=== PATIENT | male | born 1955 | race Caucasian/White ===

== ENCOUNTER 2018-08-11 21:06 | Inpatient (IN) | payer BC, SELFPAY ==
[2018-08-11 21:06] VITALS: BP 105/88; PULSE 106; RESP 18; O2SAT 97
[2018-08-11 21:09] VITALS: BP 105/68; PULSE 110; TEMP 36.8; O2SAT 100; BMI 26.7
--- NOTE | 2018-08-11 21:15 | EKG12_ITS ---
Test Reason : GI Blood Pressure : / mmHG Vent. Rate : 103 BPM Atrial Rate : 103 BPM P-R Int : 174 ms QRS Dur : 096 ms QT Int : 362 ms P-R-T Axes : 051 027 028 degrees QTc Int : 474 ms Sinus tachycardia Incomplete right bundle branch block Borderline ECG Confirmed by AIDA WILKES ([id number]), graphics editor ASHLEY KELLY ([id number]) on 08/15/2018 4:51:52 PM Referred By: CAMILLE Confirmed By:AIDA WILKES
[2018-08-11] MEDS: 0.9% Normal Saline 1,000 ML 999 ML IV (21:16)
[2018-08-11 21:35] LABS: Absolute Lymphocyte Count 2.34 X10^3/ul (0.83-4.51); Absolute Neutrophil Count 10.6 X10^3/uL (2.0-7.7); Basophil# 0.09 X10^3/uL; Basophil% 0.6 % (0-1); Eosinophil# 0.13 X10^3/uL; Eosinophils% 0.9 % (0-5); Hematocrit 24.7 % (40-54); Lymphocyte # 2.34 X10^3/ul (4.0); Lymphocyte % 16.9 % (19-41); Mean Corp Hgb Conc 32.4 g/gl (32-36); Mean Corpuscular Hgb 31.7 pg (27.0-32.0); Mean Platelet Vol. 11.2 fl (6.2-12.0); Monocyte# 0.72 X10^3/uL; Monocyte% 5.2 % (0-10); Neutrophil # 10.56 X10^3/uL (2.7-7.7); Neutrophil % 76.3 % (47-70); Platelet Count 244 K/mm3 (150-450); RBC Distribution Width CV 14.4 % (11.6-14.6); RBC Distribution Width SD 51.3 fl (35.1-43.9); Red Blood Count 2.52 M/mm3 (4.6-6.2); White Blood Count 13.9 K/mm3 (4.4-11.0)
[2018-08-11 21:36] LABS: POSITIVE COUNT NO; POSITIVE DIFFERENTIAL NO; POSITIVE MORPHOLOGY NO
[2018-08-11 21:39] LABS: International Normalized Ratio 1.5
[2018-08-11 21:46] LABS: Anion Gap 10 (5-15); BUN 55 mg/dL (7-18); BUN/Creat Ratio 41.4 RATIO (10-20); Calcium,Total 8.2 mg/dL (8.5-10.1); Chloride 109 mmol/L (98-107); Creatinine, Serum 1.33 mg/dL (0.70-1.30); EST Glomerular Filtration Rate 57 mL/min (>60); Est Glom Filt Rate - Afr Amer 69 mL/min (>60); Estimated Creatinine Clearance 56.11 ml/min; Glucose 166 mg/dL (74-106); Potassium 3.6 mmol/L (3.5-5.1); Sodium Level 142 mmol/L (136-145)
--- NOTE | 2018-08-11 22:33 | HP.PCM_ITS ---
Problem List (1) GI bleed Status: Acute Qualifiers: GI bleed type/associated pathology: unspecified gastrointestinal hemorrhage type Qualified Code(s): K92.2 - Gastrointestinal hemorrhage, unspecified (2) Acute blood loss anemia Status: Acute (3) PAD (peripheral artery disease) Status: Chronic (4) Alcohol abuse Status: Chronic (5) Tobacco dependence syndrome Status: Chronic (6) PVD (peripheral vascular disease) Status: Chronic (7) History of peptic ulcer Status: Chronic (8) GERD (gastroesophageal reflux disease) Status: Chronic Qualifiers: Esophagitis presence: esophagitis presence not specified Qualified Code(s): K21.9 - Gastro-esophageal reflux disease without esophagitis (9) Benign essential hypertension Status: Chronic (10) COLD (chronic obstructive lung disease) Status: Chronic Qualifiers: COPD type: unspecified COPD Qualified Code(s): J44.9 - Chronic obstructive pulmonary disease, unspecified History of Present Illness Date of Admission: 08/11/18 Chief Complaint: Hematemesis, melanotic stools The patient is a 62 y/o M w/ PMHx: Hx Throat CA s/p cyrogenic therapy/laser surgery, EtOH Abuse, Chronic COPD, Tobacco use, Hx Bleeding Gastric Ulcer 03/2018 following w/ Dr. 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 He also notes onset since of lightheadedness, dizziness and increased fatigue. Work-up in the ED included T 98.3, heart rate 110, BP 105/68, respiratory rate 18, 100% on room air, CBC with W BC 13.9, h emoglobin 8 with last noted in system 12 but do not have access to recent [facility] records, platelet 244 with left shift, coags with PT 18, INR 1.5, PTT 30, BMP with chloride 109, BUN/creatinine 55/1.33, glucose 166, troponin less than 0.015, EKG with sinus tachycardia with no acute evidence of ischemia, stool guaiac positive, type and screen performed in the ED. Surgery, Dr. Kumar consulted per ED, familiar with patient and case discussed, amenable to [facility] admission, planned AM endoscopy. Hospitalist also discussed case with Dr. Kumar upon patient admission given especially patient need for ongoing anticoagulation. Patient noted having taken his xarelto regimen on day of presentation, next due 08/12/18 ~ 8 am. Past Medical History Past Medical History (Chronic Problems): Chronic Problems PAD (peripheral artery disease) (Chronic) Alcohol abuse (Chronic) Tobacco dependence syndrome (Chronic) PVD (peripheral vascular disease) (Chronic) History of peptic ulcer (Chronic) GERD (gastroesophageal reflux disease) (Chronic) Degeneration, intervertebral disc (Chronic) History of DVT of lower extremity (Chronic) Benign essential hypertension (Chronic) On anticoagulant therapy (Chronic) Chronic serous otitis media of both ears (Chronic) Eustachian tube dysfunction (Chronic) COLD (chronic obstructive lung disease) (Chronic) Allergies lisinopril Adverse Reaction (Verified 08/11/18 21:12) Other Home Medications: Ambulatory Orders Medication Instructions Recorded Amlodipine [Norvasc] 5 mg PO DAILY 05/04/16 Aspirin [Aspirin, Baby] 81 mg PO DAILY@0800 05/04/16 Esomeprazole Mag Trihydrate 40 mg PO BID 05/04/16 [Nexium] Ferrous Sulfate 325 mg PO DAILY@0800 05/04/17 Rivaroxaban [Xarelto] 20 mg PO DAILY 05/04/17 Ascorbic Acid [Vitamin C] 1,000 mg PO DAILY 08/11/18 Cyanocobalamin (Vitamin B-12) 500 mcg PO DAILY 08/11/18 [Vitamin B-12] Magnesium Oxide [Mag-Ox 400] 400 mg PO DAILY 08/11/18 Potassium Chloride [K-Dur] 10 meq PO DAILY 08/11/18 Surgical History: - - Bilateral lower extremity bypass surgery x3, lumbar back surgery, right elbow surgery x2, tonsillectomy, throat cancer laser surgery as well as cryogenic therapy. Psychiatric History: No pertinent psych hx Smoking Status: Current every day smoker Review of Systems Constitutional: Reports: Anorexia, Malaise, Weakness, Fatigue. Denies: Chills, Fever, Weight Change HEENT: Denies: Head Aches, Sinus Congestion, Sinus Drainage Cardiovascular: Denies: Chest Pain, Palpitations Respiratory: Denies: Cough, Shortness of breath at rest, Sputum production Gastrointestinal: Reports: Abdominal Pain, Hematemesis, Nausea, Melena, Vomiting Genitourinary: Denies: Dysuria Musculoskeletal: Reports: Joint Pain. Denies: Joint Tenderness Skin: Denies: Rash, Wounds Neurological: Denies: Numbness, Tingling, Focal weakness Psychiatric: Denies: Anxiety, Depression, Homicidal Ideations, Suicidal Ideations Hematologic/ Lymphatic: Reports: Anemia, Easy Bruising, Easy Bleeding VTE Information - Inpt Only VTE Present on Admission: No VTE Mechan Device Prophylaxis: SCD's VTE Pharm Prophylaxis ordered?: Yes Patient Problems: Active and Suspected Problems GI bleed (Acute) Acute blood loss anemia (Acute) Subjective: Seated upright in ED bed, fatigued appearing, notes no recent emesis since ED presentation. Objective: Physical Examination: General: awake, alert, oriented x 3 and cooperative, seated upright in the ED bed in no apparent distress aside noting back discomfort from the bed. Skin: normal color, turgor, no icterus, cyanosis. HEENT: AT/NC, EOMI, PERRLA, mildly dry MM, no carotid bruits or JVD noted. Lungs: CTA bilaterally, moderate effort, moderate decrease BL bases, no rales, ronchi or wheezing. Heart: Mildly tachycardic with regular rhythm; no gallop, rub audible. Abdomen: soft, NTTP, ND, hyperactive BS, + HM. Extremities: no cyanosis, clubbing, or edema, notable BL LE scars s/p bypass surgeries. Neurological: patient awake, alert, oriented x 3; cognitive function intact; pupils equally reactive to light and accomodation; cranial nerves II-XII grossly normal, moving all 4 extremities, no focal deficits, strength severely globally decreased secondary to acute presentation. Psychiatric: affect appears fatigued, no acute evidence of depressive or anxiety feelings. - Physical Exam Vital Signs Temp Pulse Resp BP Pulse Ox 98.3 F 110 H 18 105/68 100 08/11/18 21:09 08/11/18 21:09 08/11/18 21:06 08/11/18 21:09 08/11/18 21:09 Oxygen Delivery Method Room Air Weight: 180 lb 15.992 oz Body Mass Index (BMI) 26.7 Microbiology Past 72 Hours 08/11/18 21:15 Stool Occult Blood (ROMAN) - Final Stool Occult Blood Positive Laboratory Tests Past 24 Hrs 08/11/18 08/11/18 08/11/18 21:15 21:15 21:15 WBC 13.9 H RBC 2.52 L Hgb 8.0 L Hct 24.7 L MCV 98.0 H MCH 31.7 MCHC 32.4 RDW 14.4 RDW Differential 51.3 H Plt Count 244 MPV 11.2 Immature Gran % (Auto) 0.100 Neut % (Auto) 76.3 H Lymph % (Auto) 16.9 L [place] % (Auto) 5.2 Eos % (Auto) 0.9 Baso % (Auto) 0.6 Absolute Neuts (auto) 10.6 H Absolute Lymphs (auto) 2.34 Total Counted Not Reportable PT 18.0 H INR 1.5 APTT 30.0 Sodium 142 Potassium 3.6 Chloride 109 H Carbon Dioxide 23.0 Anion Gap 10 BUN 55 H Creatinine 1.33 H Estim Creat Clear Calc 56.11 Est GFR (MDRD) Af Amer 69 Est GFR (MDRD) Non-Af 57 L BUN/Creatinine Ratio 41.4 H Glucose 166 H Calcium 8.2 L Troponin I < 0.015 Blood Type Antibody Screen 08/11/18 21:15 WBC RBC Hgb Hct MCV MCH MCHC RDW RDW Differential Plt Count MPV Immature Gran % (Auto) Neut % (Auto) Lymph % (Auto) [place] % (Auto) Eos % (Auto) Baso % (Auto) Absolute Neuts (auto) Absolute Lymphs (auto) Total Counted PT INR APTT Sodium Potassium Chloride Carbon Dioxide Anion Gap BUN Creatinine Estim Creat Clear Calc Est GFR (MDRD) Af Amer Est GFR (MDRD) Non-Af BUN/Creatinine Ratio Glucose Calcium Troponin I Blood Type A NEGATIVE Antibody Screen NEGATIVE Assessment/Plan All Active Problems GI bleed (Acute) Acute blood loss anemia (Acute) The patient is a 62 y/o M w/ PMHx: Hx Throat CA s/p cyrogenic therapy/laser surgery, EtOH Abuse, Chronic COPD, Tobacco use, Hx Bleeding Gastric Ulcer 03/2018 following w/ Dr. 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 (1) Acute GI Bleed w/ resultant Acute Blood Loss Anemia w/ Hx Gastric Ulcer, GERD, Fe deficiency anemia concurrently: Admission Hgb 8, will admit to PCU, maintain on IVFs, holding further xarelto with planned transition per discussion with Dr. Kumar to heparin drip 08/12/18 ~ 8 am when next dose would be due secondary to severity of patient need for continuation, will obtain serial H+H q 4 hours, obtain T+S per ED already, maintain on IV PPI. (2) PAD: s/p BL LE bypass x 3, maintained on xarelto-->heparin drip as noted, holding asa, not on statin therapy, maintain on HTN regimen. (3) Hx Serial DVTs: Complicates presentation, #1, as noted discussed precarious situation with Dr. Kumar, patient refuses to hold anticoagulation as notes immediately clots and notable PAD history as noted, will transition to heparin drip 08/12/18 ~ 8 am until endoscopy performed. (4) Tobacco Abuse: Encouraged cessation, inpatient consultation per RT. (5) Chronic COPD: PRN albuterol, HOB, IS parameters. Declined trial of duonebs, encouraged tobacco cessation. (6) EtOH Abuse: Patient notes routine consumption of 3-5, 12 ounce beers per day. Will maintain on CIWA protocol, MVI, thiamine and folic acid. Encouraged patient consumption to decrease to 2 or < per day. Mag and phos pending. (7) Hx Throat CA: s/p cyrogenic therapy and initial laser surgery. (8) DVT Prophylaxis: SCDs, will transition to heparin drip 08/12/18 ~ 8 am until endoscopy performed. Code Visit Inpatient E&M: 24021 Init Hosp L3
--- NOTE | 2018-08-11 22:41 | ED.DCSUM_ITS ---
- ER Visit Summary Date of Service: 08/11/18 Chief Complaint: Vomiting blood and bloody stools History of Present Illness: The patient is a 62 M who states that he is vomiting blood and is having bloody stools. Started yesterday. He has had multiple bloody bowel movements. He states that they are now dark. He did have bright red blood and vomiting but now this is also dark. He is not nauseous currently. He does have a history of a bleeding ulcer and has seen Dr. Kumar in the past. He is on Xarelto for history of DVT and peripheral vascular disease. Physical Examination: Vital signs reviewed. HEENT exam unremarkable. Heart is tachycardic and regular rhythm without murmurs. Lungs are clear to auscultation. Abdomen is soft and nontender. Extremities reveal no edema. Skin exam normal. Neurologic exam normal. Test Results: EKG is sinus rhythm with rate of 103. Hemoglobin is 8. The last documented hemoglobin here is 12. White blood cell count 13.9. BUN 55 creatinine 1.33. Troponin normal. Emergency Department Course and Treatment: The patient was given saline. He has no need for blood transfusion at this time. He is hemodynamically stable except for slight tachycardia. I discussed with Dr. Humphrey and he will see the patient tomorrow for likely endoscopy. Patient will be admitted to PCU with repeat hemoglobins throughout the night. Treatment Plan: [] Disposition: Admit Impression: GI bleed on anticoagulation This note was generated with [employer] dictation software. It may contain incorrect words, spelling, and punctuation that were not noted in review of the chart prior to signing ED Disposition - Plan for ED Patient: Referrals: Santhosh Dorado III, MD [Primary Care Provider] -
[2018-08-11 23:15] VITALS: BP 128/77; BP 134/80; PULSE 99; RESP 17; TEMP 36.7; O2SAT 96
[2018-08-11 23:40] VITALS: PULSE 94
[2018-08-11 23:56] LABS: Magnesium 1.8 mg/dL (1.6-2.6); Phosphorus 3.3 mg/dL (2.5-4.9)
[2018-08-12] VITALS (22 sets, daily range): BP systolic 93–130; BP diastolic 61–72; PULSE 69–95; RESP 12–16; TEMP 36.4–36.9; O2SAT 92–100; BMI 26.6; BMI 26.7
--- NOTE | 2018-08-12 | GASB_PTH ---
PATIENT: ALFREDA RAMIREZ Jr. LOC: [facility] U#:[id number] AGE/SX: 62/M ROOM: [facility] RE08/11/[address]: Dr. Juan Diego Cote DO : 1955 BED: 1 DIS: 08/12/2018 SPEC #: [id number] RECD: 08/12/18 13:59 STATUS: MAGY REQ #: [id number] BRENT: 08/12/18 00:[address]: Kumar Kumar DEPT: SURGICAL PATHOLOGY RECD BY: Jose Cavanaugh ENTERED: 08/12/18 13:59 SP TYPE: Gastric Bx OTHR DR: MD Dr. Santhosh Reyes III, MD Dr. Mark Tereletsky, DO Dr. Richard Guttman, MD Tissues: Gastric mucous membrane Procedures: Surgery Specimen Level IV Comments: @ Ordering doctor for SUIV edited from to @ by YUE at 08/12/18 1421 @ Submitting doctor edited from to DR.RGUTTM Ayon by ROCKOD at 08/12/18 142 HEADER OPER[place] [place] DIAGNOSIS: GI bleed TISSUE SUBMITTED: Antral biopsy for histo and H. pylori MICROSCOPIC DIAGNOSIS Gastric antrum, biopsy: Mild chronic gastritis. AM:christina 08/15/18 COMMENT The results of immunohistochemistry for Helicobacter pylori will be reported separately ([id number]). MICROSCOPIC DESCRIPTION Slides are reviewed. GROSS DESCRIPTION Received in fixative is one container labeled with the patient's name and designated antral biopsy. The specimen consists of one irregular fragment of light mulligan soft tissue that measures 0.4 x 0.1 x 0.1 cm. The specimen is totally submitted in one cassette. / SJ:christina 08/12/18 TC:3 CPT: 73842
--- NOTE | 2018-08-12 00:04 | NURSING ---
Pt unsure when pneumonia shot was.
[2018-08-12 00:22] LABS: Hematocrit 25.7 % (40-54); Hemoglobin 8.3 g/dl (13.0-16.5)
[2018-08-12] MEDS: 0.9% Normal Saline 1,000 ML 100 ML IV (00:44)
[2018-08-12] MEDS: 0.9% NaCl Peripheral Flush Adult/Peds IV ×2 (00:48→04:16)
[2018-08-12 03:30] LABS: Hematocrit 23.6 % (40-54); Hemoglobin 7.5 g/dl (13.0-16.5)
--- NOTE | 2018-08-12 05:24 | NURSING ---
Stool observed at this time and is liquid, dark brown.
--- NOTE | 2018-08-12 06:01 | CON.PCM_ITS ---
Reason for Consult Date of Consultation: 08/12/18 Reason for Consultation: Gi bleed History of Present Illness: The patient is a 62 year old M who presents with a three-day history of maroon to bloody stools with hematemesis yesterday. The patient is a usual state of health when he noted dark and or bloody stools for the past 3 days. Yesterday, the patient noted overall was feeling worse and had an episode of hematemesis. He presented to the emergency department with these complaints. CBC was obtained which demonstrated a hemoglobin of 8.0. The patient had a hemoglobin in the [facility] system in January 2018 that demonstrated a hemoglobin of 12.6. I performed upper and lower endoscopy on March 29, 2018at that time for a diagnosis of an explain diarrhea. colonoscopy demonstrated no specific abnormalities. The terminal ileum was identified and was also unrem arkable.upper endoscopy demonstrated relatively diffuse gastritis with was felt to be a superficial oozing gastric ulcer up in the gastric fundus. This was injected with epinephrine and fulgurated with argon plasma motor polarizer.pathology from that endoscopy series returned as normal appearing small bowel biopsy, normal gastric antrum, slight chronically inflamed gastric close at the GE junction, normal terminal ileum and normal colon. The patient underwent repeat upper endoscopy on April 12, 2018. There was still felt to be some oozing in the area. This was again treated with monopolar coagulopathy and a clip applied to the site.biopsy at that time returned as erosions and changes consistent with reactive gastropathy. The patient has a history of alcohol abuse and tobacco use. He has a history of peripheral vascular disease hypertension lower extremity arterial emboli for which she is on chronic anticoagulation-Xarelto and history of COPD.he has undergone lower extremity revascularizationand balloon angioplasty of lower extremity arterial stenoses on both the right and left legs. Past Medical History Past Medical History (Chronic Problems): Chronic Problems PAD (peripheral artery disease) (Chronic) Alcohol abuse (Chronic) Tobacco dependence syndrome (Chronic) PVD (peripheral vascular disease) (Chronic) History of peptic ulcer (Chronic) GERD (gastroesophageal reflux disease) (Chronic) Degeneration, intervertebral disc (Chronic) History of DVT of lower extremity (Chronic) Benign essential hypertension (Chronic) On anticoagulant therapy (Chronic) Chronic serous otitis media of both ears (Chronic) Eustachian tube dysfunction (Chronic) COLD (chronic obstructive lung disease) (Chronic) Allergies lisinopril Adverse Reaction (Verified 08/11/18 21:12) Other Home Medications: Ambulatory Orders Medication Instructions Recorded Amlodipine [Norvasc] 5 mg PO DAILY 05/04/16 Aspirin [Aspirin, Baby] 81 mg PO DAILY@0800 05/04/16 Esomeprazole Mag Trihydrate 40 mg PO BID 05/04/16 [Nexium] Ferrous Sulfate 325 mg PO DAILY@0800 05/04/17 Rivaroxaban [Xarelto] 20 mg PO DAILY 05/04/17 Ascorbic Acid [Vitamin C] 1,000 mg PO DAILY 08/11/18 Cyanocobalamin (Vitamin B-12) 500 mcg PO DAILY 08/11/18 [Vitamin B-12] Magnesium Oxide [Mag-Ox 400] 400 mg PO DAILY 08/11/18 Potassium Chloride [K-Dur] 10 meq PO DAILY 08/11/18 Surgical History: - - Bilateral lower extremity bypass surgery x3, lumbar back surgery, right elbow surgery x2, tonsillectomy, throat cancer laser surgery as well as cryogenic therapy. Psychiatric History: No pertinent psych hx Smoking Status: Current every day smoker Tobacco Use: Cigarettes, Cigars Review of Systems Constitutional: Reports: Malaise, Weakness HEENT: Denies: Head Aches, Sinus Congestion, Sinus Drainage Cardiovascular: Denies: Chest Pain, Palpitations Respiratory: Denies: Cough, Shortness of breath at rest, Sputum production Gastrointestinal: Reports: Hematemesis, Hematochezia, Melena. Denies: Abdominal Pain, Nausea, Vomiting Genitourinary: Denies: Dysuria Musculoskeletal: Denies: Joint Pain, Joint Tenderness Skin: Denies: Rash, Wounds Neurological: Denies: Numbness, Tingling, Focal weakness Psychiatric: Denies: Anxiety, Depression, Homicidal Ideations, Suicidal Ideations Hematologic/ Lymphatic: Denies: Easy Bruising, Easy Bleeding Patient Problems: Active and Suspected Problems GI bleed (Acute) Acute blood loss anemia (Acute) - Physical Exam General: Alert, Oriented x3, Cooperative Neck: Supple, No JVD, Negative Carotid Bruits Lungs: Clear to auscultation, Normal air movement Cardiovascular: Regular rate, No murmurs Abdomen: Bowel Sounds Present, Soft, Non Tender Vital Signs Temp Pulse Resp BP Pulse Ox 98.4 F 83 12 112/72 100 08/12/18 05:04 08/12/18 05:04 08/12/18 05:04 08/12/18 05:04 08/12/18 05:04 Oxygen Delivery Method Room Air Weight: 79.6 kg Body Mass Index (BMI) 26.6 Intake and Output for Last 24 Hours 08/10/18 08/11/18 08/12/18 23:59 23:59 23:59 Intake Total 0 / 0 441 / 441 Balance 0 / 0 441 / 441 Microbiology Past 72 Hours 08/11/18 21:15 Stool Occult Blood (ROMAN) - Final Stool Occult Blood Positive Laboratory Tests Past 24 Hrs 08/11/18 08/11/18 08/11/18 21:15 21:15 21:15 WBC 13.9 H RBC 2.52 L Hgb 8.0 L Hct 24.7 L MCV 98.0 H MCH 31.7 MCHC 32.4 RDW 14.4 RDW Differential 51.3 H Plt Count 244 MPV 11.2 Immature Gran % (Auto) 0.100 Neut % (Auto) 76.3 H Lymph % (Auto) 16.9 L [place] % (Auto) 5.2 Eos % (Auto) 0.9 Baso % (Auto) 0.6 Absolute Neuts (auto) 10.6 H Absolute Lymphs (auto) 2.34 Total Counted Not Reportable PT 18.0 H INR 1.5 APTT 30.0 Sodium 142 Potassium 3.6 Chloride 109 H Carbon Dioxide 23.0 Anion Gap 10 BUN 55 H Creatinine 1.33 H Estim Creat Clear Calc 56.11 Est GFR (MDRD) Af Amer 69 Est GFR (MDRD) Non-Af 57 L BUN/Creatinine Ratio 41.4 H Glucose 166 H Hemoglobin A1c Calcium 8.2 L Phosphorus Magnesium Troponin I < 0.015 Blood Type Antibody Screen Crossmatch 08/11/18 08/11/18 08/11/18 21:15 21:15 21:15 WBC RBC Hgb Hct MCV MCH MCHC RDW RDW Differential Plt Count MPV Immature Gran % (Auto) Neut % (Auto) Lymph % (Auto) [place] % (Auto) Eos % (Auto) Baso % (Auto) Absolute Neuts (auto) Absolute Lymphs (auto) Total Counted PT INR APTT Sodium Potassium Chloride Carbon Dioxide Anion Gap BUN Creatinine Estim Creat Clear Calc Est GFR (MDRD) Af Amer Est GFR (MDRD) Non-Af BUN/Creatinine Ratio Glucose Hemoglobin A1c 5.0 Calcium Phosphorus 3.3 Magnesium 1.8 Troponin I Blood Type A NEGATIVE Antibody Screen NEGATIVE Crossmatch 08/11/18 08/12/18 08/12/18 21:15 00:06 03:14 WBC RBC Hgb 8.3 L 7.5 L Hct 25.7 L 23.6 L MCV MCH MCHC RDW RDW Differential Plt Count MPV Immature Gran % (Auto) Neut % (Auto) Lymph % (Auto) [place] % (Auto) Eos % (Auto) Baso % (Auto) Absolute Neuts (auto) Absolute Lymphs (auto) Total Counted PT INR APTT Sodium Potassium Chloride Carbon Dioxide Anion Gap BUN Creatinine Estim Creat Clear Calc Est GFR (MDRD) Af Amer Est GFR (MDRD) Non-Af BUN/Creatinine Ratio Glucose Hemoglobin A1c Calcium Phosphorus Magnesium Troponin I Blood Type Antibody Screen Crossmatch See Detail Assessment/Plan All Active Problems GI bleed (Acute) Acute blood loss anemia (Acute) patient with history of gastric ulceration presents with hematochezia, melena and hematemesis with a decrease in hemoglobin-expected upper GI bleed I plan to perform upper endoscopy. The patient says the risks, benefits, possible complications and consents to the procedure. Due to the patient's history of extensive lower extremity vascular disease, he needs to be maintained on anticoagulation. Patient is currently receiving 2 units packed red cells hemoglobin dropped from admission of 8.0-7.5. We'll repeat CBC after 2 unit transfusion.
--- NOTE | 2018-08-12 06:35 | EKG12_ITS ---
Test Reason : AM Blood Pressure : / mmHG Vent. Rate : 075 BPM Atrial Rate : 075 BPM P-R Int : 166 ms QRS Dur : 084 ms QT Int : 410 ms P-R-T Axes : 011 046 019 degrees QTc Int : 457 ms Normal sinus rhythm Normal ECG When compared with ECG of 11-AUG-2018 21:25, MANUAL COMPARISON REQUIRED, DATA IS UNCONFIRMED Confirmed by RAMU NETTLES, SABRA ([id number]), senior technical editor ASHLEY KELLY ([id number]) on 08/17/2018 1:46:52 PM Referred By: NATALIA Confirmed By:SABRA GUALLPA MD
--- NOTE | 2018-08-12 09:15 | CASEMGMT ---
Addendum entered by Jose Mata 08/12/18 10:16: Correction: Pt and states appt with Dr Sumit Dorado is next week on , which would be August 16. Original Note: RN CM FIRE WARDEN CM to room to meet with patient for initial transition planning/care coordination assessment. RN CM introduced self and role at [facility]. Pt voices understanding and consents to assessment at this time. Pt resting in bed in no distress at this time. @ bedside. Pt is A/O at this time and answers all questions appropriately. Care providers, pharmacy, and demographics verified/updated at this time. PCP: Santhosh Dorado. Has an appt with him on August 15. Pt thinks at 1005. Specialists:Denies Preferred Pharmacy: [facility] ([place] Insurance: [employer] Prescription Benefit: Yes Living Will/HPOA: Pt and think they have completed both LW and HCPOA, but are unsure and if so, they think pt's is HCPOA. They state they are going to look into this when pt returns home. Pt states he does not wish to talk to SW at this time. They were provided with AD info packet and Service Support Representative Rac Card and made aware if, once returns home, if they find pt has not completed paperwork or if they want to change/update paperwork, that appt can be made as an out-pt. and pt voice understanding and appreciation of information. LNOK: , daughter Living Arrangements: Lives in one-story home with his . One step to enter. Independent @ home. Transportation: Pt states drives self and states no transportation concerns at this time. DME: Denies using any DME and denies needs. HHC/SNF: No hx of SNF in the past. States has had HHC in the past for Nursing/wound care, but does not remember the name of the agency. Pt wishes to return home and states has no concerns with going home at time of discharge. CM to follow for discharge planning/needs. Pt voices no further concerns/needs at this time. Advised pt to ask for CM if any further questions/concerns/needs arise. Voices understanding. PLAN: Home with spousal support and discharge plans in place. Per H/P, hx: ETOH abuse. SW Consult has been made, IRAIDA Harrison, aware. Eldon EDMONDSONN RN CM
--- NOTE | 2018-08-12 10:01 | CASEMGMT ---
Addendum entered by Christy Heard 08/12/18 10:04: Note below reviewed and approved. KIM Moreno Original Note: Social Work Progressive Care Unit Spoke with patient regarding alcohol consumption of 3-5 beers daily. Pt reported to not consume alcohol daily and occasionally consume 1-2 or 3-5 depending on the day of the week and the social setting. Pt declines that alcohol usage is an issue or impedes functioning daily. Pt reports to have been consuming alcohol in such routine for roughly 40 years. Pt was offered resources such as counseling or AA meetings and pt declined. No further services indicated or requested at this time.
--- NOTE | 2018-08-12 12:21 | NURSING ---
Pt being taken down to ENDOSCOPY for procedure. Report called to Jodi ARMAS
--- NOTE | 2018-08-12 12:30 | IMM_PTH ---
PATIENT: ALFREDA RAMIREZ Jr. LOC: PCU U#:[id number] AGE/SX: 62/M ROOM: [facility] RE08/11/[address]: Dr. Juan Diego Cote DO : 1955 BED: 1 DIS: 08/12/2018 SPEC #: [id number] RECD: 08/12/18 14:22 STATUS: SOURaya REQ #: [id number] BRENT: 08/12/18 12:[address]: Kumar Kumar DEPT: IMMUNOHISTOCHEMISTRY RECD BY: Thea Ovalles ENTERED: 08/12/18 14:22 SP TYPE: IMMUNO OTHR DR: MD Dr. Santhosh Reyes III, MD Dr. Mark Tereletsky, DO Tissues: Stomach, NOS Procedures: H Pylori (initial) PHYSICIAN & INSTITUTION [place] [address] SPECIMEN INFORMATION: Tissue Source: Antral biopsy Clinical Info: GI bleed Specimen Number: [id number] CPT code: 25727 METHODOLOGY: Deparaffinized sections of prefer/formalin-fixed tissue or PAP/DQ stained slides are incubated with monoclonal/polyclonal antibodies/oligonucleotide probes. Localization is made via biotin free immunoperoxidase method. Appropriate controls are performed and reacted as expected. Results on target cell population are indicated in the following table: RESULTS: ANTIBODY / CLONE RESULT H Pylori (polyclonal) negative These tests were developed and their performance characteristics determined by [facility]. They may not have been cleared or approved by the U.S. Food and Drug Administration. The FDA has determined that such clearance or approval is not necessary. INTERPRETATION: Antral biopsy: Negative for Helicobacter pylori organisms. AM:christina 08/15/18
--- NOTE | 2018-08-12 13:35 | OP.ENDO_ITS ---
08/12/2018 Santhosh Dorado [address] [place] [address] Re : Upper GI endoscopy procedure for Enoc Gomez Dear Dr. Dorado This procedure was performed on Sunday, August 12, 2018. My impressions and recommendations are as follows: Impressions : - Normal examined jejunum. - Duodenitis. - Alcoholic gastritis. Biopsied. - Normal esophagus. Recommendations : - Use sucralfate tablets 1 gram PO QID. - Use Protonix (pantoprazole) 80 mg IV daily. - Continue present medications. My findings are described in the full procedure note, which is enclosed. If I can be of further assistance, please feel free to contact me at Doctor phone number(s): , Work: . Sincerely, uKmar Kumar MD 08/12/2018 1:35:01 PM This report has been signed electronically.
--- NOTE | 2018-08-12 13:35 | PCM.PN.SRG ---
Patient Problems: Active and Suspected Problems GI bleed (Acute) Acute blood loss anemia (Acute) Subjective: no complaints - Physical Exam Vital Signs Temp Pulse Resp BP Pulse Ox 98.1 F 74 16 126/66 H 97 08/12/18 11:12 08/12/18 11:12 08/12/18 11:12 08/12/18 11:12 08/12/18 11:12 Oxygen Flow Rate (L/min) 2 Oxygen Delivery Method Room Air Weight: 79.6 kg Body Mass Index (BMI) 26.6 Intake and Output for Last 24 Hours 08/10/18 08/11/18 08/12/18 23:59 23:59 23:59 Intake Total 0 / 0 2040 Balance 0 / 0 2040 Microbiology Past 72 Hours 08/11/18 21:15 Stool Occult Blood (ROMAN) - Final Stool Occult Blood Positive Laboratory Tests Past 24 Hrs 08/11/18 08/11/18 08/11/18 21:15 21:15 21:15 WBC 13.9 H RBC 2.52 L Hgb 8.0 L Hct 24.7 L MCV 98.0 H MCH 31.7 MCHC 32.4 RDW 14.4 RDW Differential 51.3 H Plt Count 244 MPV 11.2 Immature Gran % (Auto) 0.100 Neut % (Auto) 76.3 H Lymph % (Auto) 16.9 L [place] % (Auto) 5.2 Eos % (Auto) 0.9 Baso % (Auto) 0.6 Absolute Neuts (auto) 10.6 H Absolute Lymphs (auto) 2.34 Total Counted Not Reportable PT 18.0 H INR 1.5 APTT 30.0 Sodium 142 Potassium 3.6 Chloride 109 H Carbon Dioxide 23.0 Anion Gap 10 BUN 55 H Creatinine 1.33 H Estim Creat Clear Calc 56.11 Est GFR (MDRD) Af Amer 69 Est GFR (MDRD) Non-Af 57 L BUN/Creatinine Ratio 41.4 H Glucose 166 H Hemoglobin A1c Calcium 8.2 L Phosphorus Magnesium Troponin I < 0.015 Blood Type Antibody Screen Crossmatch 08/11/18 08/11/18 08/11/18 21:15 21:15 21:15 WBC RBC Hgb Hct MCV MCH MCHC RDW RDW Differential Plt Count MPV Immature Gran % (Auto) Neut % (Auto) Lymph % (Auto) [place] % (Auto) Eos % (Auto) Baso % (Auto) Absolute Neuts (auto) Absolute Lymphs (auto) Total Counted PT INR APTT Sodium Potassium Chloride Carbon Dioxide Anion Gap BUN Creatinine Estim Creat Clear Calc Est GFR (MDRD) Af Amer Est GFR (MDRD) Non-Af BUN/Creatinine Ratio Glucose Hemoglobin A1c 5.0 Calcium Phosphorus 3.3 Magnesium 1.8 Troponin I Blood Type A NEGATIVE Antibody Screen NEGATIVE Crossmatch 08/11/18 08/12/18 08/12/18 21:15 00:06 03:14 WBC RBC Hgb 8.3 L 7.5 L Hct 25.7 L 23.6 L MCV MCH MCHC RDW RDW Differential Plt Count MPV Immature Gran % (Auto) Neut % (Auto) Lymph % (Auto) [place] % (Auto) Eos % (Auto) Baso % (Auto) Absolute Neuts (auto) Absolute Lymphs (auto) Total Counted PT INR APTT Sodium Potassium Chloride Carbon Dioxide Anion Gap BUN Creatinine Estim Creat Clear Calc Est GFR (MDRD) Af Amer Est GFR (MDRD) Non-Af BUN/Creatinine Ratio Glucose Hemoglobin A1c Calcium Phosphorus Magnesium Troponin I Blood Type Antibody Screen Crossmatch See Detail Medical Necessity - Tobacco Use Smoking Status: Current every day smoker Tobacco Use: Cigarettes, Cigars Assessment/Plan All Active Problems GI bleed (Acute) Acute blood loss anemia (Acute) patient with history of gastric ulceration presents with hematochezia, melena and hematemesis with a decrease in hemoglobin-expected upper GI bleed upper endoscopy demonstrated duodenitis and diffuse gastropathy with prominent vasculature/ likely alcoholic/protal hypertensive gastropathy without active bleeding, but oozing Would add Carafate to PPI Due to the patient's history of extensive lower extremity vascular disease, he needs to be maintained on anticoagulation. Patient is currently receiving 2 units packed red cells hemoglobin dropped from admission of 8.0-7.5. We'll repeat CBC after 2 unit transfusion.
[2018-08-12 14:44] LABS: Hematocrit 26.3 % (40-54); Hemoglobin 8.7 g/dl (13.0-16.5)
[2018-08-12] MEDS: Folic Acid 1 MG Tablet PO (15:19)
[2018-08-12] MEDS: amLODIPine 5 MG Tablet PO (15:19)
[2018-08-12] MEDS: Multivitamins,Ther W-Minerals Tablet 1 TABLET PO (15:19)
[2018-08-12] MEDS: Thiamine Hydrochloride 100 MG Tablet PO (15:19)
[2018-08-12] MEDS: Ferrous Sulfate 325 MG Tablet PO (15:19)
--- NOTE | 2018-08-12 15:19 | DCINST_ITS ---
- Discharge Diagnoses Current Active Problems: Current Active and Chronic Problems GI bleed (Acute) Acute blood loss anemia (Acute) PAD (peripheral artery disease) (Chronic) Alcohol abuse (Chronic) You will use the following diet at home:: No restrictions Your food should be the consistency of: Regular Your liquids should be the consistency of: Regular/Thin Discharge Activity: Return to Normal Activity Weight Bearing Status: Full weight bearing Allergies/Adverse Reactions: Allergies lisinopril Adverse Reaction (Verified 08/11/18 21:12) Other Medications to take at Discharge Amlodipine [Norvasc] 5 mg PO DAILY 05/04/16 Esomeprazole Mag Trihydrate [Nexium] 40 mg PO BID 05/04/16 Rivaroxaban [Xarelto] 20 mg PO DAILY 05/04/17 Ascorbic Acid [Vitamin C] 1,000 mg PO DAILY 08/11/18 Cyanocobalamin (Vitamin B-12) [Vitamin B-12] 500 mcg PO DAILY 08/11/18 Magnesium Oxide [Mag-Ox 400] 400 mg PO DAILY 08/11/18 Acetaminophen [Tylenol Tablet] 650 mg PO Q6H PRN PRN tablet 08/12/18 Ferrous Sulfate 325 mg PO BID #60 tab 08/12/18 Sucralfate [Carafate] 1 gm PO 1HR_ACHS #120 tablet 08/12/18 The following prescriptions were given: Sucralfate [Carafate] 1 gm PO 1HR_ACHS #120 tablet Ferrous Sulfate 325 mg PO BID #60 tab Primary Care Physician: Santhosh Dorado III, MD [Primary Care Provider] - Test Results: Test results from this visit will be discussed in further detail at your follow- up appointment, if applicable. Please Follow Up With: Santhosh Dorado III, MD
--- NOTE | 2018-08-13 08:59 | DS.PCM_ITS ---
Discharge Date and Diagnosis Date of Admission: 08/11/18 Date of Discharge: 08/12/18 - Primary Discharge Diagnosis #1 acute upper GI bleed secondary to gastritis #2 acute anemia secondary to acute upper GI bleed secondary to gastritis- requiring blood transfusion #3 peripheral vascular disease #4 chronic obstructive pulmonary disease #5 gastritis-etiology unknown #6 duodenitis - Secondary Discharge Diagnosis Chronic Problems PAD (peripheral artery disease) (Chronic) Alcohol abuse (Chronic) Tobacco dependence syndrome (Chronic) PVD (peripheral vascular disease) (Chronic) History of peptic ulcer (Chronic) GERD (gastroesophageal reflux disease) (Chronic) Degeneration, intervertebral disc (Chronic) History of DVT of lower extremity (Chronic) Benign essential hypertension (Chronic) On anticoagulant therapy (Chronic) Chronic serous otitis media of both ears (Chronic) Eustachian tube dysfunction (Chronic) COLD (chronic obstructive lung disease) (Chronic) Hospital Course and Treatment Operations: None Procedures: Blood transfusion, EGD Summary of Care Provided: The patient is a 62 year old M seen in the emergency room at [facility] with chief complaint of hematemesis and hematochezia. Patient stated he had multiple bloody bowel movements but at the time he was seen in the ER he complained that the stools were dark. Patient is on Xarelto for history of extensive peripheral vascular disease and DVTs. Patient was worked up in the emergency room, was given IV saline, his hemoglobin was obtained and it was 8. White blood cell count was slightly increased at 13.9, BUN was 55, creatinine was 1.33. Patient was admitted to PCU for GI bleed, he was seen in consultation by general surgery who performed an EGD on 08/12/18 and saw areas of gastritis and duodenal irritation. There was no trinh bleeding noted. Patient was given 2 units of packed red blood cells and he had no complaints of lightheadedness or presyncope. On 08/12/18, patient was seen and examined and felt to be in stable condition for discharge home: On examination he appeared in good health and spirits. Vital signs as documented. Skin warm and dry and without overt rashes. Neck without JVD. Lungs clear. Heart exam notable for regular rhythm, normal sounds and absence of murmurs, rubs or gallops. Abdomen unremarkable and without evidence of organomegaly, masses, or abdominal aortic enlargement. Extremities nonedematous. Neuro: Cranial nerves II through XII are grossly intact, no focal motor deficits were noted, sensation to light touch and pinprick intact. Psych: Patient is alert and oriented x3, he does not appear anxious or depressed I talked at length with the patient and his , patient drinks 3-4 drinks a day and then on the weekends he drinks more according to the patient, I told him that that was a risk factor for gastritis and he should limit his intake of alcohol. Patient understands this. Patient also continues to smoke, I told him this was a risk factor for peptic ulcer disease and peripheral vascular disease and I told him that he needs to quit smoking. Patient understands this. Patient is due to see his PCP next week, I told him that he needs to have his hemoglobin rechecked, hemoglobin came up approximately 1.5 g with his 2 blood transfusions and I do not believe that he needs any more blood transfusions at this time. On 08/12/18, patient was seen and examined and felt to be in stable condition for discharge home - Physical Exam Vital Signs Temp Pulse Resp BP Pulse Ox 97.6 F L 74 16 112/64 93 08/12/18 14:53 08/12/18 14:53 08/12/18 14:53 08/12/18 14:53 08/12/18 14:53 Oxygen Flow Rate (L/min) 2 Oxygen Delivery Method Nasal Cannula Weight: 79.6 kg Body Mass Index (BMI) 26.6 Intake and Output for Last 24 Hours 08/11/18 08/12/18 08/13/18 23:59 23:59 23:59 Intake Total 0 / 0 2481 / 2481 Balance 0 / 0 2481 / 2481 Microbiology Past 72 Hours 08/11/18 21:15 Stool Occult Blood (ROMAN) - Final Stool Occult Blood Positive Laboratory Tests Past 24 Hrs 08/11/18 08/12/18 21:15 14:20 Hgb 8.7 L Hct 26.3 L Crossmatch See Detail Discharge Activity: Return to Normal Activity Weight Bearing Status: Full weight bearing Home Medications: Medications to take at Discharge Amlodipine [Norvasc] 5 mg PO DAILY 05/04/16 Esomeprazole Mag Trihydrate [Nexium] 40 mg PO BID 05/04/16 Rivaroxaban [Xarelto] 20 mg PO DAILY 05/04/17 Ascorbic Acid [Vitamin C] 1,000 mg PO DAILY 08/11/18 Cyanocobalamin (Vitamin B-12) [Vitamin B-12] 500 mcg PO DAILY 08/11/18 Magnesium Oxide [Mag-Ox 400] 400 mg PO DAILY 08/11/18 Acetaminophen [Tylenol Tablet] 650 mg PO Q6H PRN PRN tablet 08/12/18 Ferrous Sulfate 325 mg PO BID #60 tab 08/12/18 Sucralfate [Carafate] 1 gm PO 1HR_ACHS #120 tablet 08/12/18 Following Prescrptions Were Given to Patient: Sucralfate [Carafate] 1 gm PO 1HR_ACHS #120 tablet Ferrous Sulfate 325 mg PO BID #60 tab Primary Care Physician: Trinh Dorado III, MD [Primary Care Provider] - Please Follow Up With: Trinh Dorado III, MD Disposition: Home Minutes spent on discharge:: 32 Patient Condition:: Stable Medical Necessity - Tobacco Use Smoking Status: Current every day smoker Tobacco Use: Cigarettes, Cigars Meaningful Use Info Meaningful Use Diagnoses (Choose all that apply): None applicable Code Visit Inpatient E&M: 68957 Disch Hosp
--- NOTE | 2018-08-15 16:07 | CASEMGMT ---
CHANDA DAVIS Discharge F/U Phone Call LACE: 9 Strata: 3 Discharge date: 08/12/18 Call date: 08/15/18 Call time: [id number] Duration: 2 minutes Admission dx: GI bleed Pt states has been 'doing pretty good' since discharge. Pt states no questions regarding medications or discharge instructions at this time. Pt states has f/u scheduled with PCP tomorrow am. Pt states no suggestions for [facility] at this time and states 'Everything was great!' Pt voices no further questions/concerns/needs at this time. SStaten CHANDA DAVIS
== END 2018-08-12 16:37 | disposition home or self-care (01) | DRG 378 ==
LOC: ED 21:34 → PCU 22:41
PROVIDERS: Surgery; Admitting Provider Family Medicine; Emergency Provider Emergency Medicine; Family Provider Family Medicine; PCP Family Medicine; Visit Provider Internal Medicine
PROC: 0DJ08ZZ Inspection of Upper Intestinal Tract, Via Natural or Artificial Opening Endoscopic (ICD-10-PCS; CPT 43235; principal; 2018-08-12 12:25)
DX: K29.71 Gastritis, unspecified, with bleeding (principal); D62 Acute posthemorrhagic anemia; I73.9 Peripheral vascular disease, unspecified; J44.9 Chronic obstructive pulmonary disease, unspecified; K29.80 Duodenitis without bleeding; F17.210 Nicotine dependence, cigarettes, uncomplicated; K21.9 Gastro-esophageal reflux disease without esophagitis; I10 Essential (primary) hypertension; F10.10 Alcohol abuse, uncomplicated; Z79.01 Long term (current) use of anticoagulants; Z86.718 Personal history of other venous thrombosis and embolism; Z85.819 Personal history of malignant neoplasm of unspecified site of lip, oral cavity, and pharynx; Z95.828 Presence of other vascular implants and grafts; Z87.11 Personal history of peptic ulcer disease
CPT/HCPCS: 36415; 80048; 82274; 83036; 83735; 84100; 84484; 85014; 85018; 85025; 85610; 85730; 86850; 86900; 86920; 86922; 88305; 88342; 93005; 99284; 99406; J7030; J7040; P9016; A4216; J2405

== ENCOUNTER 2018-11-02 08:55 | Emergency (ER) | payer BC, MEDICARE, SELFPAY ==
[2018-08-12 12:47] VITALS: BMI 26.6
[2018-11-02 08:56] VITALS: BP 117/73; PULSE 105; RESP 16; TEMP 37.3; O2SAT 99; BMI 25.4
--- NOTE | 2018-11-02 09:13 | ED.VISSUMM ---
- ER Visit Summary Date of Service: 11/02/18 Chief Complaint: Fever, joint pain, nausea, diarrhea History of Present Illness: The patient is a 63 M with a 5-day history of low-grade fever, body aches, diarrhea, mild nausea. He did note an enlarged lymph node in the left groin. He has no urinary symptoms. He has no risk factors for infectious diarrhea. Physical Examination: Vital signs grossly unremarkable. Temperature here is 99.1. Patient sitting upright in bed no acute distress. He is nontoxic-appearing. Examination unremarkable. Heart is regular rate and rhythm. Lung sounds are clear. Abdomen is soft with no focal tenderness. Active bowel sounds are noted. Extremity examination was no focal joint edema or erythema. Neuro exam is unremarkable. Test Results: CBC is normal. Chemistry studies significant only for potassium 3.0. LFTs normal. INR 2.1. Urinalysis shows 10-25 casts but no sign of acute infection. Lactate is normal. Blood cultures were sent. Two-view chest x-ray shows hyperinflation with mild bibasilar scarring. Stool guaiac is negative. Fecal leuks are positive. Remainder of stool studies are pending. Emergency Department Course and Treatment: Patient was given IV fluids along with p.o. Tylenol. He was given oral potassium. At this time patient feels well. I advised him that I believe he has a viral syndrome, but he will be contacted if his stool studies or blood cultures are abnormal. He voices understanding and agreement. He will be given 3 additional days of potassium at home. Treatment Plan: [] Disposition: Discharge Impression: 1. Viral syndrome 2. Hypokalemia This note was generated with [employer] dictation software. It may contain incorrect words, spelling, and punctuation that were not noted in review of the chart prior to signing ED Disposition - Plan for ED Patient: Disposition: Home or Assisted Living Instructions: VIRAL SYNDROME (Adult), Hypokalemia Prescriptions: Potassium Chloride [K-Dur] 20 meq PO BID #6 tablet Referrals: Santhosh Dorado III, MD [Primary Care Provider] - 5-7 Days
[2018-11-02] MEDS: 0.9% Normal Saline 1,000 ML 150 ML IV (09:29)
[2018-11-02] MEDS: Acetaminophen 325 MG Tablet 650 MG PO (09:30)
[2018-11-02 09:39] LABS: Absolute Lymphocyte Count 1.44 X10^3/ul (0.83-4.51); Absolute Neutrophil Count 4.1 X10^3/uL (2.0-7.7); Basophil# 0.04 X10^3/uL; Basophil% 0.7 % (0-1); Hematocrit 44.4 % (40-54); Hemoglobin 15.1 g/dl (13.0-16.5); Lymphocyte # 1.44 X10^3/ul (4.0); Lymphocyte % 23.6 % (19-41); Mean Corpuscular Hgb 31.8 pg (27.0-32.0); Mean Corpuscular Volume 93.5 fL (80-94); Mean Platelet Vol. 11.8 fl (6.2-12.0); Monocyte# 0.57 X10^3/uL; Monocyte% 9.3 % (0-10); Neutrophil # 4.05 X10^3/uL (2.7-7.7); Neutrophil % 66.2 % (47-70); Platelet Count 152 K/mm3 (150-450); RBC Distribution Width CV 13.9 % (11.6-14.6); RBC Distribution Width SD 47.5 fl (35.1-43.9); Red Blood Count 4.75 M/mm3 (4.6-6.2); White Blood Count 6.1 K/mm3 (4.4-11.0)
[2018-11-02 09:46] LABS: POSITIVE COUNT NO; POSITIVE DIFFERENTIAL NO; POSITIVE MORPHOLOGY NO
[2018-11-02 09:51] LABS: AST(SGOT) 47 U/L (15-37); Alanine Aminotransfer ALT/SGPT 38 U/L (16-61); Albumin, Serum 3.1 g/dL (3.2-5.0); Alkaline Phosphatase 104 U/L (45-117); Anion Gap 9 (5-15); BUN 16 mg/dL (7-18); BUN/Creat Ratio 11.9 RATIO (10-20); Bilirubin, Direct 0.14 mg/dL (0.00-0.30); Chloride 104 mmol/L (98-107); Creatinine, Serum 1.35 mg/dL (0.70-1.30); EST Glomerular Filtration Rate 56 mL/min (>60); Est Glom Filt Rate - Afr Amer 68 mL/min (>60); Estimated Creatinine Clearance 54.55 ml/min; Globulin 4.5 g/dL (2.2-4.2); Glucose 96 mg/dL (74-106); Protein, Total 7.6 g/dL (6.4-8.2); Sodium Level 136 mmol/L (136-145)
[2018-11-02 09:55] LABS: International Normalized Ratio 2.1; Prothrombin Time (Protime)PT. 23.8 SECONDS (11.7-14.9)
[2018-11-02 09:56] LABS: Partial Thromboplast Time 44.5 Seconds (24.1-36.2)
--- NOTE | 2018-11-02 10:15 | RAD_ITS ---
STUDY: X-RAY CHEST REASON FOR EXAM: Male, 63 years old. Cough and fever. TECHNIQUE: PA and lateral views of the chest. COMPARISON: None. FINDINGS: Hyperinflation. Mild increased linear markings at the lung bases suggestive of bibasilar scarring. There is no demonstrated pleural abnormality. Normal size heart. Normal mediastinum and mercedes. Normal visualized pulmonary arteries. There is atherosclerotic calcification of the aortic arch with tortuosity. There is demineralization of the osseous structures. Normal visualized ribs, clavicles, and shoulders. There is no demonstrated abnormality of the visualized soft tissue structures of the upper abdomen. RAD/Chest PA and Lateral IMPRESSION: Hyperinflation. Findings suggest a mild degree of bibasilar scarring. Electronically Signed: Prem Beckman, at 10:35 EDT , Service support ,
[2018-11-02 11:08] VITALS: BP 121/91; PULSE 83; RESP 16; TEMP 36.7; O2SAT 95
[2018-11-02 11:10] LABS: Bacteria 0 SEEN /hpf (None Seen); Red Blood Cells-Urine 0 SEEN /hpf (0-5); Squamous Epithelial Cells - UA 0 SEEN /hpf (0-5)
[2018-11-02 11:14] LABS: Color, Urine Amber (Yellow); Glucose, Dipstick Normal (Normal); Ketone-Dipstick 15 mg/dl (Negative); Leukocyte Esterase-Dipstick 100 /ul (Negative); Nitrite-Dipstick Negative (Negative); Occult Blood-Urine 10 /ul (Negative); Protein-Dipstick 100 mg/dl (Negative); Specific Gravity, Urine 1.015 (1.002-1.030); Urine Clarity Sl. Cloudy (Clear); Urine Urobilinogen 4 mg/dl (Normal)
[2018-11-02 11:19] LABS: Urine Bilirubin Dipstick 1 mg/dL (Negative)
[2018-11-02 11:27] LABS: Coarse Granular Cast 10-25 SEEN /lpf (0-5 /lpf)
[2018-11-02 11:28] LABS: Mucous, Urine 1+ /hpf (<or=2+); White Blood Cells 0-5 SEEN /hpf (0-5)
[2018-11-02 12:13] VITALS: BP 120/87; PULSE 70; RESP 16; O2SAT 98
== END 2018-11-02 12:14 | disposition home or self-care (01) ==
PROVIDERS: Emergency Provider Emergency Medicine; Family Provider Family Medicine; PCP Family Medicine
DX: B34.9 Viral infection, unspecified (principal); E87.6 Hypokalemia; I10 Essential (primary) hypertension; I73.9 Peripheral vascular disease, unspecified; J44.9 Chronic obstructive pulmonary disease, unspecified; K21.9 Gastro-esophageal reflux disease without esophagitis; Z86.718 Personal history of other venous thrombosis and embolism; Z79.01 Long term (current) use of anticoagulants; Z79.899 Other long term (current) drug therapy; Z72.0 Tobacco use
CPT/HCPCS: 71046; 80048; 80076; 81001; 82274; 83605; 83630; 85025; 85610; 85730; 87040; 87177; 87209; 87493; 87506; 96360; 96361; 99284; J7030; A4216

== ENCOUNTER 2018-11-18 14:00 | Inpatient (IN) | payer BC, MEDICARE, SELFPAY ==
[2018-11-18] VITALS (9 sets, daily range): BP systolic 112–123; BP diastolic 68–92; PULSE 87–104; RESP 15–24; TEMP 36.6–37.2; O2SAT 93–95; BMI 27.1; BMI 27.2; BMI 27.0
--- NOTE | 2018-11-18 14:30 | ED.VISSUMM ---
- ER Visit Summary Date of Service: 11/18/18 Chief Complaint: Due to low calcium from labs drawn on Wednesday and muscle aches History of Present Illness: The patient is a 63 M past medical history of reflux, GI bleed, anemia, peripheral arterial disease, COPD, hypertension, prior DVT, throat CA the to care for 15 years ago and anticoagulated on Xarelto. Reportedly primary care physician did labs on patient on Wednesday and his calcium came back low and sent in to the ER for evaluation. He states the last 4 weeks is just having muscle cramping and discomfort. He denies any nausea, vomiting or diarrhea. No melena. He does a history of chronic alcohol abuse. Physical Examination: Older male no acute distress. Vital signs stable afebrile. H EENT exam unremarkable. Neck nontender. Lungs clear to auscultation bilaterally. Heart regular rhythm no murmur. Abdomen soft nontender normal bowel sounds no peritoneal signs. Extremities moves all 4. Neurovascular intact. He does have mild diffuse muscular tenderness on his biceps thighs and calves but its minor. His extremities are. Neurovascular intact. Neurologically is awake and alert with no focal motor deficits. Test Results: CBC shows a white count of 15.9. Hemoglobin 12.5. Previously his hemoglobin was 8. Electrolytes unremarkable gap of 10. BUN 14 creatinine 1.2. His calcium is low at 5.8. We do not have a specific cause for that. He is symptomatic with it. Emergency Department Course and Treatment: Patient treated with p.o. calcium carbonate. Treatment Plan: Repeat exam he is doing well at 1558. I spoke to the hospitalist he will be admitted for further evaluation and treatment. Disposition: Admission Impression: Acute hypocalcemia etiology History of anemia, hypertension, DVT on Xarelto and COPD This note was generated with [employer] dictation software. It may contain incorrect words, spelling, and punctuation that were not noted to be review of the chart prior to signing ED Disposition - Plan for ED Patient: Referrals: Santhosh Dorado III, MD [Primary Care Provider] -
[2018-11-18 14:46] LABS: Hemoglobin 12.5 g/dL (13.0-16.5); Mean Corp Hgb Conc 32.9 g/dL (32-36); Mean Corpuscular Hgb 31.2 pg (27.0-32.0); Mean Corpuscular Volume 94.8 fL (80-94); Mean Platelet Vol. 11.6 fl (6.2-12.0); Platelet Count 201 K/mm3 (150-450); RBC Distribution Width CV 13.4 % (11.6-14.6); RBC Distribution Width SD 47.2 fl (35.1-43.9); Red Blood Count 4.01 M/mm3 (4.6-6.2); White Blood Count 15.9 K/mm3 (4.4-11.0)
[2018-11-18] MEDS: Calcium Carbonate 500 MG Tablet 1000 MG PO (14:54)
[2018-11-18 15:00] LABS: Anion Gap 10 (5-15); BUN 14 mg/dL (7-18); BUN/Creat Ratio 11.7 RATIO (10-20); Calcium,Total 5.8 mg/dL (8.5-10.1); Chloride 107 mmol/L (98-107); EST Glomerular Filtration Rate 65 mL/min (>60); Est Glom Filt Rate - Afr Amer 78 mL/min (>60); Estimated Creatinine Clearance 59.38 ml/min; Glucose 190 mg/dL (74-106); Potassium 3.8 mmol/L (3.5-5.1); Sodium Level 141 mmol/L (136-145)
--- NOTE | 2018-11-18 16:32 | HP.PCM_ITS ---
Problem List (1) Hypocalcemia Status: Acute (2) Alcohol abuse Status: Chronic (3) Benign essential hypertension Status: Chronic (4) COLD (chronic obstructive lung disease) Status: Chronic Qualifiers: (5) Chronic serous otitis media of both ears Status: Chronic (6) Degeneration, intervertebral disc Status: Chronic (7) Eustachian tube dysfunction Status: Chronic Qualifiers: (8) GERD (gastroesophageal reflux disease) Status: Chronic Qualifiers: (9) History of DVT of lower extremity Status: Chronic (10) History of peptic ulcer Status: Chronic (11) On anticoagulant therapy Status: Chronic (12) PAD (peripheral artery disease) Status: Chronic (13) PVD (peripheral vascular disease) Status: Chronic (14) Tobacco dependence syndrome Status: Chronic History of Present Illness Date of Admission: 11/18/18 Chief Complaint: Lab abnormality found in PCP office. The patient is a 63 year old M with multiple comorbidities as listed above is being sent from PCP office for hypocalcemia. Patient having chronic aches and pains on upper and lower extremities, numbness and tingling in fingertips, jaw muscle pain for last 2 weeks. Pain is mainly at shoulder and upper arm and was started on prednisone 20 mg daily by PCP for possible diagnosis of polymyalgia rheumatica. As per patient, prednisone did not help him. In ED, serum calcium was found 5.8, serum albumin 2.5 with corrected calcium 7 mg/dL. Patient received 1 g calcium carbonate and LFT was added later on by me. EKG shows normal sinus rhythm with QTC 449 ms. EKG does not show prolongation of QTc interval. Patient lab also shows leukocytosis about 16,000 probably from prednisone. LFTs are elevated. [] Past Medical History Past Medical History (Chronic Problems): Chronic Problems PAD (peripheral artery disease) (Chronic) Alcohol abuse (Chronic) Tobacco dependence syndrome (Chronic) PVD (peripheral vascular disease) (Chronic) History of peptic ulcer (Chronic) GERD (gastroesophageal reflux disease) (Chronic) Degeneration, intervertebral disc (Chronic) History of DVT of lower extremity (Chronic) Benign essential hypertension (Chronic) On anticoagulant therapy (Chronic) Chronic serous otitis media of both ears (Chronic) Eustachian tube dysfunction (Chronic) COLD (chronic obstructive lung disease) (Chronic) Allergies lisinopril Adverse Reaction (Verified 11/18/18 16:08) PASSED OUT Home Medications: Ambulatory Orders Medication Instructions Recorded Amlodipine [Norvasc] 5 mg PO DAILY 05/04/16 Esomeprazole Mag Trihydrate 40 mg PO BID 05/04/16 [Nexium] Rivaroxaban [Xarelto] 20 mg PO DAILY 05/04/17 Ascorbic Acid [Vitamin C] 1,000 mg PO DAILY 08/11/18 Cyanocobalamin (Vitamin B-12) 500 mcg PO DAILY 08/11/18 [Vitamin B-12] Magnesium Oxide [Mag-Ox 400] 400 mg PO BID 08/11/18 Acetaminophen [Tylenol Tablet] 650 mg PO Q6H PRN PRN tablet 08/12/18 Ferrous Sulfate 325 mg PO DAILY 11/18/18 Potassium Chloride [K-Dur] 20 meq PO DAILY 11/18/18 Prednisone 20 mg PO DAILY 11/18/18 Sucralfate [Carafate] 1 gm PO 4X/DAY 11/18/18 Surgical History: - - Bilateral lower extremity bypass surgery x3, lumbar back surgery, right elbow surgery x2, tonsillectomy, throat cancer laser surgery as well as cryogenic therapy. Psychiatric History: No pertinent psych hx Smoking Status: Current every day smoker Tobacco Use: Cigarettes, Cigars - *Family History Paternal History Items: No pertinent history - No pertinent history of electrolyte abnormality or polymyalgia rheumatica or hypocalcemia. Review of Systems Constitutional: Denies: Chills, Fever, Weight Change HEENT: Denies: Head Aches, Sinus Congestion, Sinus Drainage Cardiovascular: Denies: Chest Pain, Palpitations Respiratory: Denies: Cough, Shortness of breath at rest, Sputum production Gastrointestinal: Denies: Abdominal Pain, Nausea, Vomiting Genitourinary: Denies: Dysuria Musculoskeletal: Reports: Joint Pain, Muscle pain, Shoulder Pain. Denies: Joint Tenderness Skin: Denies: Rash, Wounds Neurological: Denies: Numbness, Tingling, Focal weakness Psychiatric: Denies: Anxiety, Depression, Homicidal Ideations, Suicidal Ideations Hematologic/ Lymphatic: Denies: Easy Bruising, Easy Bleeding VTE Information - Inpt Only VTE Present on Admission: No VTE Mechan Device Prophylaxis: None VTE Pharm Prophylaxis ordered?: Yes Patient Problems: Active and Suspected Problems Hypocalcemia (Acute) - Physical Exam General: Alert, Oriented x3, Cooperative HEENT: Atraumatic, PERRLA, EOMI, Normocephalic Neck: Supple, No JVD, Negative Carotid Bruits Lungs: Diminished - Air entry diminished in all lung garcia. Expiratory phase is prolonged., Rhonchi - Occasional rhonchi present Cardiovascular: Regular rate, Regular Rhythm, Normal S1, Normal S2, No murmurs Abdomen: Bowel Sounds Present, Soft, Non Tender, Non-Distended Extremities: No edema, Capillary Refill Less than 3 Seconds Skin: No rashes, No breakdown Musculoskeletal: No Tenderness to Palpation of Joints or Extremities, - - Surgical scar present on both lower legs secondary to arterial bypass graft Neurological: Cranial nerves II-XII grossly intact, Deep Tendon Reflexes 2+/4 and Symmetrical, Neuro grossly intact, Motor Exam 5/5 strength throughout Psych/Mental Status: Normal Affect, Appropriate Vital Signs Temp Pulse Resp BP Pulse Ox 98 F 90 20 H 123/68 H 95 11/18/18 14:02 11/18/18 16:23 11/18/18 16:23 11/18/18 16:23 11/18/18 16:23 Oxygen Delivery Method Room Air Weight: 178 lb 9.191 oz Body Mass Index (BMI) 27.1 Laboratory Tests Past 24 Hrs 11/18/18 11/18/18 11/18/18 14:21 14:21 14:21 WBC 15.9 H RBC 4.01 L Hgb 12.5 L Hct 38.0 L MCV 94.8 H MCH 31.2 MCHC 32.9 RDW Std Deviation 47.2 H RDW Coeff of Mariella 13.4 Plt Count 201 MPV 11.6 Sodium 141 Potassium 3.8 Chloride 107 Carbon Dioxide 24.0 Anion Gap 10 BUN 14 Creatinine 1.20 Estim Creat Clear Calc 59.38 Est GFR (MDRD) Af Amer 78 Est GFR (MDRD) Non-Af 65 BUN/Creatinine Ratio 11.7 Glucose 190 H Calcium 5.8 L* Total Bilirubin Pending Direct Bilirubin Pending AST Pending ALT Pending Alkaline Phosphatase Pending Total Protein Pending Albumin Pending Assessment/Plan All Active Problems Hypocalcemia (Acute) The patient is a 63 year old M with multiple comorbidities as listed above is being sent from PCP office for hypocalcemia. Patient having chronic aches and pains on upper and lower extremities, numbness and tingling in fingertips, jaw muscle pain for last 2 weeks. Pain is mainly at shoulder and upper arm and was started on prednisone 20 mg daily by PCP for possible diagnosis of polymyalgia rheumatica. As per patient, prednisone did not help him. In ED, serum calcium was found 5.8, serum albumin 2.5 with corrected calcium 7 mg/dL. Patient received 1 g calcium carbonate and LFT was added later on by me. EKG shows normal sinus rhythm with QTC 449 ms. EKG does not show prolongation of QTc interval. Patient lab also shows leukocytosis about 16,000 probably from prednisone. LFTs are elevated. 1. Hypocalcemia, exact etiology unclear; but possible secondary to steroids: Patient previous calcium was 7.0 in October 2018 and 8.2 in August 2018. IV calcium chromate 1 g ordered. Serum phosphorus, PTH hormone, vitamin D and magnesium ordered. Repeat labs tomorrow. Patient does not Chvostek sign or hyperreflexia. 2. Peripheral arterial disease status post vascular surgery in both lower legs, history of DVT: patient denies any calf or leg pain. Continue home medications. 3. COPD: Stable. Bronchodilator PRN as needed. Patient is not on maintenance inhaler at home. 4. Other chronic comorbidities include chronic muscle/joint pain, possible polymyalgia rheumatica: Taper down prednisone 10 mg to discontinue in 7 days. Perhaps he does not have polymyalgia rheumatica with possible muscle aches joint pain secondary to hypocalcemia. DVT prophylaxis: Patient is on Xarelto for history of arterial thrombosis and DVT. Laboratory Results 11/18/18 14:21: WBC 15.9 H, RBC 4.01 L, Hgb 12.5 L, Hct 38.0 L, MCV 94.8 H, MCH 31.2, MCHC 32.9, RDW Std Deviation 47.2 H, RDW Coeff of Mariella 13.4, Plt Count 201, MPV 11.6 11/18/18 14:21: Sodium 141, Potassium 3.8, Chloride 107, Carbon Dioxide 24.0, Anion Gap 10, BUN 14, Creatinine 1.20, Estim Creat Clear Calc 59.38, Est GFR (MDRD) Af Amer 78, Est GFR (MDRD) Non-Af 65, BUN/Creatinine Ratio 11.7, Glucose 190 H, Calcium 5.8 L* 11/18/18 14:21: Total Bilirubin 0.40, Direct Bilirubin 0.10, AST 53 H, ALT 105 H , Alkaline Phosphatase 157 H, Total Protein 7.2, Albumin 2.5 L, Globulin 4.7 H Code Visit OBSV E&M: 56534 Initial observation care L3
[2018-11-18 16:33] LABS: AST(SGOT) 53 U/L (15-37); Alanine Aminotransfer ALT/SGPT 105 U/L (16-61); Albumin, Serum 2.5 g/dL (3.2-5.0); Alkaline Phosphatase 157 U/L (45-117); Globulin 4.7 g/dL (2.2-4.2); Protein, Total 7.2 g/dL (6.4-8.2)
[2018-11-18 18:10] LABS: Magnesium < 0.3 mg/dL (1.6-2.6); Phosphorus 3.9 mg/dL (2.5-4.9)
[2018-11-18] MEDS: 0.9% Normal Saline 1,000 ML 75 ML IV (18:21)
[2018-11-18] MEDS: Magnesium Sulfate 4gm/100mL 4 GM/100 ML IV.SOLN. IV (21:07)
[2018-11-18] MEDS: Magnesium Oxide 400 MG Tablet PO (21:07)
[2018-11-18] MEDS: Pantoprazole Sodium 40 MG Tablet PO (21:07)
[2018-11-18] MEDS: Famotidine 20 MG Tablet PO (21:07)
[2018-11-18] MEDS: Sucralfate 1 GM Tablet PO (21:07)
[2018-11-18 22:42] LABS: Anion Gap 5 (5-15); BUN 16 mg/dL (7-18); BUN/Creat Ratio 15.2 RATIO (10-20); Calcium,Total 5.8 mg/dL (8.5-10.1); Chloride 106 mmol/L (98-107); Creatinine, Serum 1.05 mg/dL (0.70-1.30); EST Glomerular Filtration Rate 75 mL/min (>60); Est Glom Filt Rate - Afr Amer 91 mL/min (>60); Estimated Creatinine Clearance 67.86 ml/min; Glucose 96 mg/dL (74-106); Magnesium 0.6 mg/dL (1.6-2.6); Potassium 3.1 mmol/L (3.5-5.1); Sodium Level 137 mmol/L (136-145)
--- NOTE | 2018-11-18 23:57 | NURSING ---
2200 lab called critical values to this nurse. Made Nicole primary nurse aware of calcium and Mag levels.
[2018-11-19] VITALS (13 sets, daily range): BP systolic 115–140; BP diastolic 65–89; PULSE 88–122; RESP 18–20; TEMP 36.7–38; O2SAT 92–93
[2018-11-19] MEDS: Acetaminophen 325 MG Tablet 650 MG PO (02:47)
[2018-11-19 04:44] LABS: Anion Gap 9 (5-15); BUN 14 mg/dL (7-18); BUN/Creat Ratio 14.2 RATIO (10-20); Calcium,Total 6.4 mg/dL (8.5-10.1); Chloride 106 mmol/L (98-107); Creatinine, Serum 0.98 mg/dL (0.70-1.30); EST Glomerular Filtration Rate 81 mL/min (>60); Est Glom Filt Rate - Afr Amer 98 mL/min (>60); Glucose 129 mg/dL (74-106); Magnesium 1.3 mg/dL (1.6-2.6); Potassium 2.9 mmol/L (3.5-5.1); Sodium Level 142 mmol/L (136-145)
[2018-11-19] MEDS: Sucralfate 1 GM Tablet PO ×4 (06:12→20:04)
[2018-11-19] MEDS: Magnesium Sulfate 4gm/100mL 4 GM/100 ML IV.SOLN. IV (08:08)
[2018-11-19] MEDS: Ferrous Sulfate 325 MG Tablet PO (08:18)
[2018-11-19] MEDS: Cyanocobalamin 500 MCG Tablet PO (08:18)
[2018-11-19] MEDS: Ascorbic Acid 500 MG Tablet 1000 MG PO (08:18)
[2018-11-19] MEDS: Magnesium Oxide 400 MG Tablet PO ×2 (08:18→20:05)
[2018-11-19] MEDS: predniSONE 10 MG Tablet PO (08:18)
[2018-11-19] MEDS: Pantoprazole Sodium 40 MG Tablet PO ×2 (08:18→20:05)
[2018-11-19] MEDS: amLODIPine 5 MG Tablet PO (08:18)
[2018-11-19] MEDS: Famotidine 20 MG Tablet PO (08:19)
[2018-11-19] MEDS: Calcium (Elemental) 500 MG Tablet PO (08:19)
--- NOTE | 2018-11-19 08:39 | PN_ITS ---
Patient Problems: Active and Suspected Problems Hypocalcemia (Acute) Subjective: Pain is improving as his calcium improves Vitals/I&O's: Vital Signs Temp Pulse Resp BP Pulse Ox 99 F 102 H 20 H 119/80 92 11/19/18 08:11 11/19/18 08:11 11/19/18 08:11 11/19/18 08:11 11/19/18 08:11 Oxygen Delivery Method Room Air Weight: 177 lb 11.081 oz Body Mass Index (BMI) 27.0 Intake and Output for Last 24 Hours 11/17/18 11/18/18 11/19/18 23:59 23:59 23:59 Intake Total 1494 / 1494 Balance 1494 / 1494 General: Alert, Oriented x3, Cooperative, No apparent distress HEENT: Atraumatic, PERRLA, EOMI, Normocephalic Oral: Moist Mucosa Neck: Supple, No JVD Lungs: Clear to auscultation, Normal air movement, No rhonchi, No wheeze, No rales, Diminished Cardiovascular: Regular rate, Regular Rhythm, Normal S1, Normal S2, No murmurs Abdomen: Soft, Non Tender, Non-Distended, No Hepato-splenomegaly Extremities: No edema, Capillary Refill Less than 3 Seconds Skin: No rashes, No breakdown Neurological: Neuro grossly intact, Muscle tone normal, Sensory exam intact to light touch and pain Psych/Mental Status: Normal Affect, Appropriate Laboratory Results 11/18/18 14:21: WBC 15.9 H, RBC 4.01 L, Hgb 12.5 L, Hct 38.0 L, MCV 94.8 H, MCH 31.2, MCHC 32.9, RDW Std Deviation 47.2 H, RDW Coeff of Mariella 13.4, Plt Count 201, MPV 11.6 11/18/18 14:21: Sodium 141, Potassium 3.8, Chloride 107, Carbon Dioxide 24.0, Anion Gap 10, BUN 14, Creatinine 1.20, Estim Creat Clear Calc 59.38, Est GFR (MDRD) Af Amer 78, Est GFR (MDRD) Non-Af 65, BUN/Creatinine Ratio 11.7, Glucose 190 H, Calcium 5.8 L* 11/18/18 14:21: Total Bilirubin 0.40, Direct Bilirubin 0.10, AST 53 H, ALT 105 H , Alkaline Phosphatase 157 H, Total Protein 7.2, Albumin 2.5 L, Globulin 4.7 H 11/18/18 14:21: Phosphorus 3.9, Magnesium < 0.3 L* 11/18/18 14:21: Vitamin D 25-Hydroxy 9.0 L 11/18/18 14:21: PTH Intact 49.0 11/18/18 22:05: Sodium 137, Potassium 3.1 L, Chloride 106, Carbon Dioxide 26.0, Anion Gap 5, BUN 16, Creatinine 1.05, Estim Creat Clear Calc 67.86, Est GFR (MDRD) Af Amer 91, Est GFR (MDRD) Non-Af 75, BUN/Creatinine Ratio 15.2, Glucose 96, Calcium 5.8 L*, Magnesium 0.6 L* 11/19/18 03:48: Sodium 142, Potassium 2.9 L, Chloride 106, Carbon Dioxide 27.0, Anion Gap 9, BUN 14, Creatinine 0.98, Estim Creat Clear Calc 72.70, Est GFR (MDRD) Af Amer 98, Est GFR (MDRD) Non-Af 81, BUN/Creatinine Ratio 14.2, Glucose 129 H, Calcium 6.4 L*, Magnesium 1.3 L Current Medications Acetaminophen (Tylenol) 650 mg PO Q6H PRN PRN PRN Reason: Mild Pain (1-3)/Temp > 100.7 F Last Admin: 11/19/18 02:47 Dose: 650 mg Documented by: Albuterol Sulfate (Ventolin Aerosols) 2.5 mg INHALATION Q2H PRN PRN PRN Reason: Shortness of Breath/Wheezing Amlodipine Besylate (Norvasc) 5 mg PO DAILY [facility] Last Admin: 11/19/18 08:18 Dose: 5 mg Documented by: Ascorbic Acid (Vitamin C) 1,000 mg PO DAILY [facility] Last Admin: 11/19/18 08:18 Dose: 1,000 mg Documented by: Calcium Carbonate (Tums) 1,000 mg PO DAILY@0800 [facility] Last Admin: 11/18/18 14:54 Dose: 1,000 mg Documented by: Cyanocobalamin (Vitamin B12) 500 mcg PO DAILY [facility] Last Admin: 11/19/18 08:18 Dose: 500 mcg Documented by: Docusate Sodium (Colace) 100 mg PO BID PRN PRN PRN Reason: Constipation Ergocalciferol (Vitamin D) 50,000 unit PO Q7D [facility] Last Admin: 11/19/18 08:19 Dose: 50,000 unit Documented by: [facility]ous [facility] ([facility] S[facility]) [facility] Last Admin: 11/19/18 08:18 Dose: 325 mg Documented by: Sodium Chloride () 250 mls @ 15 mls/hr IV .[id number] PRN PRN Reason: SALINE FLUSH Magnesium Sulfate () 4 gm in 100 mls @ 25 mls/hr IV X1 ONE Stop: 11/19/18 10:05 Last Admin: 11/19/18 08:08 Dose: 25 mls/hr Documented by: Magnesium Oxide (Mag-Ox 400) 400 mg PO BID [facility] Last Admin: 11/19/18 08:18 Dose: 400 mg Documented by: Pantoprazole Sodium (Protonix) 40 mg PO BID [facility] Last Admin: 11/19/18 08:18 Dose: 40 mg Documented by: Potassium Chloride (K-Dur) 20 meq PO DAILY [facility] Last Admin: 11/19/18 08:19 Dose: 20 meq Documented by: Prednisone () [facility] Stop: 11/23/18 08:01 Last Admin: 11/19/18 08:18 Dose: 10 mg Documented by: Prednisone () [facility] Stop: 11/28/18 08:01 Rivaroxaban (Xarelto) 20 mg PO DAILY@1700 [facility] Senna/Docusate Sodium (Senokot-S, Kerrie-Colace) 2 tablet PO BID PRN PRN PRN Reason: Constipation Sodium Chloride () 10 - 40 ml IV UD PRN PRN Reason: SALINE FLUSH Sucralfate (Carafate) 1 gm PO 1HR_ACHS [facility] Last Admin: 11/19/18 06:12 Dose: 1 gm Documented by: Medical Necessity - Tobacco Use Smoking Status: Current every day smoker Tobacco Use: Cigarettes, Cigars Assessment/Plan All Active Problems Hypocalcemia (Acute) 1. Significant joint pain secondary to severe hypocalcemia and severe hypomagnesemia/hypokalemia/vitamin D deficiency/hypoparathyroidism -On admission his calcium was less than 6 and his magnesium was less than 0.3, and phosphorus was 3.9 -His parathyroid hormone should be elevated but it was 49, likely indicating hypoparathyroidism -He is was also started on 50,000 IU of vitamin D deficiency to be given every week for 12 weeks -Given the inappropriate response of his parathyroid hormone he will likely need to see an music therapist [facility] [employer] [facility] as an outpatient -On discharge we will plan on continuing his p.o. magnesium as well as putting him on Tums 2-3 times per day -We will need close outpatient follow-up for his labs -Discontinue his narcotics -We will taper his prednisone as he had been on it because his primary care doctor thought that his joint pain and muscle aches were secondary to polymyalgia rheumatica 2. Hypertension -Stable -Continue with Norvasc 3. Iron deficiency anemia -Continue with vitamin C in the setting of PPI use -Continue with iron, hemoglobin stable at 12.5 4. History of DVT -Stable -Continue with Xarelto DVT: Xarelto Code Visit OBSV E&M: 89690 Subsequent observation care L2
--- NOTE | 2018-11-19 11:18 | CASEMGMT ---
CHANDA DAVIS assessment: Face to Face with patient for initial transition planning/care coordination assessment. CHANDA DAVIS introduced self and role at [facility], pt voices understanding and consents to assessment at this time. Pt is sitting up in bed in no distress at this time. Pt is A/Ox4 at this time and answers all questions appropriately at this time. Care providers, pharmacy, and demographics verified at this time. PCP: Ave [facility] Specialists: Pt states currently has no specialists. Preferred Pharmacy: [facility] [place] Insurance: [facility] A/B, [place] Prescription Benefit: [place] Living Will/HPOA: Pt states does not have LW/HPOA but would like info at this time. AD info provided to pt at this time. Pt declines SW to complete info at this time. LNOK: Lilibeth Gomez, ; Nena Gomez, daughter Living Arrangements: Pt states lives with in 1 story home and states no concerns at home at this time. Pt states is independent with ADL's. Transportation: Pt states drives self and states no transportation concerns at home at this time. DME/HHC: Pt states has the following DME: walker(does not use), grab bars, and shower chair. Pt states no need for any further DME at this time. Pt states has had HHC set up in the past but cannot remember name of company. Pt states no hx of SNF in the past. Pt states no concerns with going home at time of discharge. Pt is retired. Pt states smokes 1/2pk/day and states up until a month ago, he was drinking 2-4beers daily but has not felt well for a month so has not been drinking. Pt states no further concerns/needs at this time. Advised pt to ask for CM if any further questions/concerns/needs arise, voices understanding. Pt Goal: Home Plan[place] CHANDA DAVIS
--- NOTE | 2018-11-19 11:46 | CPS ---
started by nursing
[2018-11-19] MEDS: Rivaroxaban 20 MG Tablet PO (17:34)
[2018-11-20] VITALS (8 sets, daily range): BP systolic 121–147; BP diastolic 70–94; PULSE 93–104; RESP 18–20; TEMP 36.9–37; O2SAT 90–94
[2018-11-20] MEDS: Sucralfate 1 GM Tablet PO (06:39)
[2018-11-20 06:42] LABS: Anion Gap 10 (5-15); BUN 15 mg/dL (7-18); BUN/Creat Ratio 16.6 RATIO (10-20); Calcium,Total 7.4 mg/dL (8.5-10.1); Chloride 106 mmol/L (98-107); EST Glomerular Filtration Rate 90 mL/min (>60); Est Glom Filt Rate - Afr Amer 109 mL/min (>60); Estimated Creatinine Clearance 79.17 ml/min; Glucose 98 mg/dL (74-106); Potassium 3.5 mmol/L (3.5-5.1); Sodium Level 141 mmol/L (136-145)
--- NOTE | 2018-11-20 08:06 | DCINST_ITS ---
- Discharge Diagnoses Current Active Problems: Current Active and Chronic Problems Hypocalcemia (Acute) You will use the following diet at home:: Regular Your food should be the consistency of: Regular Your liquids should be the consistency of: Regular/Thin Discharge Activity: Return to Normal Activity, No Restrictions Call your doctor if you observe: Fever of 101 or Higher, Shortness of breath, Dizziness, Fainting spells, Swelling in the ankles, Chest pain, Increased palpitations (irregular heartbeat) Allergies/Adverse Reactions: Allergies lisinopril Adverse Reaction (Verified 11/18/18 16:08) PASSED OUT Medications to take at Discharge Amlodipine [Norvasc] 5 mg PO DAILY 05/04/16 Esomeprazole Mag Trihydrate [Nexium] 40 mg PO BID 05/04/16 Rivaroxaban [Xarelto] 20 mg PO DAILY 05/04/17 Ascorbic Acid [Vitamin C] 1,000 mg PO DAILY 08/11/18 Cyanocobalamin (Vitamin B-12) [Vitamin B-12] 500 mcg PO DAILY 08/11/18 Magnesium Oxide [Mag-Ox 400] 400 mg PO BID 08/11/18 Acetaminophen [Tylenol Tablet] 650 mg PO Q6H PRN PRN tablet 08/12/18 Ferrous Sulfate 325 mg PO DAILY 11/18/18 Potassium Chloride [K-Dur] 20 meq PO DAILY 11/18/18 Sucralfate [Carafate] 1 gm PO 4X/DAY 11/18/18 Calcium Carbonate [Tums] 500 mg PO TID #90 tab.chew 11/20/18 Loperamide [Imodium] 2 mg PO Q2H PRN PRN #10 cap 11/20/18 Prednisone 5 mg PO DAILY #5 tab 11/20/18 Prednisone 20 mg PO DAILY #0 11/20/18 The following prescriptions were given: Loperamide [Imodium] 2 mg PO Q2H PRN PRN #10 cap PRN Reason: Diarrhea Transmission Status: Pending to [id number] Prednisone 5 mg PO DAILY #5 tab Transmission Status: Pending to [id number] Calcium Carbonate [Tums] 500 mg PO TID #90 tab.chew Transmission Status: Pending to [id number] Primary Care Physician: Santhosh Dorado III, MD [Primary Care Provider] - Please follow up with your Primary Care Physician in: 3-5 days Test Results: Test results from this visit will be discussed in further detail at your follow- up appointment, if applicable.
--- NOTE | 2018-11-20 08:08 | PCM.DC.SUM ---
Discharge Date and Diagnosis - Problem List Patient Problems: Active and Suspected Problems Hypocalcemia (Acute) Date of Admission: 11/18/18 Date of Discharge: 11/20/18 - Primary Discharge Diagnosis Active and Suspected Problems Hypocalcemia (Acute) - Secondary Discharge Diagnosis Chronic Problems PAD (peripheral artery disease) (Chronic) Alcohol abuse (Chronic) Tobacco dependence syndrome (Chronic) PVD (peripheral vascular disease) (Chronic) History of peptic ulcer (Chronic) GERD (gastroesophageal reflux disease) (Chronic) Degeneration, intervertebral disc (Chronic) History of DVT of lower extremity (Chronic) Benign essential hypertension (Chronic) On anticoagulant therapy (Chronic) Chronic serous otitis media of both ears (Chronic) Eustachian tube dysfunction (Chronic) COLD (chronic obstructive lung disease) (Chronic) Hospital Course and Treatment Imaging Results: None Consults: None Operations: None Procedures: None Summary of Care Provided: Per HPI: The patient is a 63 year old M with multiple comorbidities as listed above is being sent from PCP office for hypocalcemia. Patient having chronic aches and pains on upper and lower extremities, numbness and tingling in fingertips, jaw muscle pain for last 2 weeks. Pain is mainly at shoulder and upper arm and was started on prednisone 20 mg daily by PCP for possible diagnosis of polymyalgia rheumatica. As per patient, prednisone did not help him. In ED, serum calcium was found 5.8, serum albumin 2.5 with corrected calcium 7 mg/dL. Patient received 1 g calcium carbonate and LFT was added later on by me. EKG shows normal sinus rhythm with QTC 449 ms. EKG does not show prolongation of QTc interval. Patient lab also shows leukocytosis about 16,000 probably from prednisone. LFTs are elevated. Hospital Course: 1. Joint pain and muscle aches secondary to severe hypocalcemia and severe hypomagnesemia/hypokalemia/vitamin D deficiency/[id number]-old male presented to his PCPs office with history of muscle aches and joint pain, initially thought to be polymyalgia rheumatica and started on prednisone. He had labs done as an outpatient which showed severe hypocalcemia and was directed to come to the ER. In the ER initially his calcium was less than 6 his magnesium was less than 0.3 and his phosphorus was 3.9. His vitamin D was also extremely low at 9. Of note his PTH intact was 49 and it should have likely been much higher therefore indicating a possible hypoparathyroidism that he will need to see endocrinology as an outpatient. He had his magnesium replaced as well as his potassium and calcium. On the day of discharge his magnesium was normal and his potassium was 3.5, his calcium was 7.4 and he was directed to continue taking Tums p.o. 3 times daily. Of note he does not take any diuretics however he states that he has been having multiple weeks worth of diarrhea that has not significantly improved. He states that his primary care physician has tested him for any GI infections come back negative, he has a history of a GI bleed and they are more concerned about that at this point. We will place him on Imodium to help decrease the loss of electrolytes. He will need to follow-up with his PCP in 3 to 5 days for outpatient lab monitoring. He was also placed on 50,000 units of vitamin D and he was given a prescription for 11 more tabs to complete his course over the next 12 weeks. Also will start to taper his prednisone as his symptoms for muscle aches and pains improved with the improvement in his electrolytes. 2. His other medical diagnoses were evaluated and his home medications were continued where appropriate Patient Problems: Active and Suspected Problems Hypocalcemia (Acute) Objective: General: Alert, Oriented x3, Cooperative, No apparent distress HEENT: Atraumatic, PERRLA, EOMI, Normocephalic Oral: Moist Mucosa Neck: Supple, No JVD Lungs: Clear to auscultation, Normal air movement, No rhonchi, No wheeze, No rales, Diminished Cardiovascular: Regular rate, Regular Rhythm, Normal S1, Normal S2, No murmurs Abdomen: Soft, Non Tender, Non-Distended, No Hepato-splenomegaly Extremities: No edema, Capillary Refill Less than 3 Seconds Skin: No rashes, No breakdown Neurological: Neuro grossly intact, Muscle tone normal, Sensory exam intact to light touch and pain Psych/Mental Status: Normal Affect, Appropriate - Physical Exam Vital Signs Temp Pulse Resp BP Pulse Ox 98.6 F 102 H 18 138/94 H 94 11/20/18 07:38 11/20/18 07:38 11/20/18 07:38 11/20/18 07:38 11/20/18 07:38 Oxygen Delivery Method Room Air Weight: 177 lb 11.081 oz Body Mass Index (BMI) 27.0 Intake and Output for Last 24 Hours 11/18/18 11/19/18 11/20/18 23:59 23:59 23:59 Intake Total 3155 / 3555 500 / 500 Balance 3155 / 3555 500 / 500 Laboratory Tests Past 24 Hrs 11/20/18 05:20 Sodium 141 Potassium 3.5 Chloride 106 Carbon Dioxide 25.0 Anion Gap 10 BUN 15 Creatinine 0.90 Estim Creat Clear Calc 79.17 Est GFR (MDRD) Af Amer 109 Est GFR (MDRD) Non-Af 90 BUN/Creatinine Ratio 16.6 Glucose 98 Calcium 7.4 L Magnesium 2.0 Discharge Activity: Return to Normal Activity, No Restrictions Call your doctor if you observe: Fever of 101 or Higher, Shortness of breath, Dizziness, Fainting spells, Swelling in the ankles, Chest pain, Increased palpitations (irregular heartbeat) Home Medications: Medications to take at Discharge Amlodipine [Norvasc] 5 mg PO DAILY 05/04/16 Esomeprazole Mag Trihydrate [Nexium] 40 mg PO BID 05/04/16 Rivaroxaban [Xarelto] 20 mg PO DAILY 05/04/17 Ascorbic Acid [Vitamin C] 1,000 mg PO DAILY 08/11/18 Cyanocobalamin (Vitamin B-12) [Vitamin B-12] 500 mcg PO DAILY 08/11/18 Magnesium Oxide [Mag-Ox 400] 400 mg PO BID 08/11/18 Acetaminophen [Tylenol Tablet] 650 mg PO Q6H PRN PRN tablet 08/12/18 Ferrous Sulfate 325 mg PO DAILY 11/18/18 Potassium Chloride [K-Dur] 20 meq PO DAILY 11/18/18 Sucralfate [Carafate] 1 gm PO 4X/DAY 11/18/18 Calcium Carbonate [Tums] 500 mg PO TID #90 tab.chew 11/20/18 Ergocalciferol [Vitamin D] 50,000 unit PO Q7D #11 cap 11/20/18 Loperamide [Imodium] 2 mg PO Q2H PRN PRN #10 cap 11/20/18 Prednisone 5 mg PO DAILY #5 tab 11/20/18 Prednisone 20 mg PO DAILY #0 11/20/18 Following Prescrptions Were Given to Patient: Loperamide [Imodium] 2 mg PO Q2H PRN PRN #10 cap PRN Reason: Diarrhea Transmission Status: Pending to [id number] Prednisone 5 mg PO DAILY #5 tab Transmission Status: Pending to [id number] Calcium Carbonate [Tums] 500 mg PO TID #90 tab.chew Transmission Status: Pending to [id number] Ergocalciferol [Vitamin D] 50,000 unit PO Q7D #11 cap Transmission Status: Pending to [id number] Primary Care Physician: Santhosh Dorado III, MD [Primary Care Provider] - Please follow up with your Primary Care Physician in: 3-5 days Please Follow Up With: Endocrinology Additional Instructions: BMP and magnesium as an outpatient to monitor his calcium, potassium and magnesium Disposition: Home Minutes spent on discharge:: 35 Patient Condition:: Good Medical Necessity - Tobacco Use Smoking Status: Current every day smoker Tobacco Use: Cigarettes, Cigars Meaningful Use Info Meaningful Use Diagnoses (Choose all that apply): None applicable Code Visit Inpatient E&M: 56289 Disch Hosp
--- NOTE | 2018-11-20 08:32 | NURSING ---
pt refused all am meds- states he will take at home. also notified this RN that pharmacy [facility] is closed today but that they have prednisone at home and have tums and immodium. State that they will [employer] [facility] prescriptions tomorrow.
--- NOTE | 2018-11-21 15:31 | CASEMGMT ---
RN RYAN DC PHONE CALL DC DATE: 11/20/18 DC Disposition: Home Diagnosis on Discharge: Hypocalcemia LACE/STRATA: 13 Intro role of CM to patient via phone. Pt states he is feeling well, no questions re: instructions prescriptions or f/u. Pt states he did not make f/u appt today, but will call tomorrow to schedule. No further questions and no care improvement suggestions given. Olman EDMONDSONN RN ACM
== END 2018-11-20 08:35 | disposition home or self-care (01) | DRG 641 ==
LOC: ED 14:45 → MS3 16:34
PROVIDERS: Hospitalist; Admitting Provider Internal Medicine; Emergency Provider Emergency Medicine; Family Provider Family Medicine; PCP Family Medicine; Referring Provider Internal Medicine; Visit Provider Family Medicine
DX: E83.51 Hypocalcemia (principal); J44.9 Chronic obstructive pulmonary disease, unspecified; I10 Essential (primary) hypertension; E83.42 Hypomagnesemia; E87.6 Hypokalemia; E55.9 Vitamin D deficiency, unspecified; E20.9 Hypoparathyroidism, unspecified; D50.9 Iron deficiency anemia, unspecified; K21.9 Gastro-esophageal reflux disease without esophagitis; Z85.819 Personal history of malignant neoplasm of unspecified site of lip, oral cavity, and pharynx; I73.9 Peripheral vascular disease, unspecified; Z86.718 Personal history of other venous thrombosis and embolism; Z79.01 Long term (current) use of anticoagulants; F17.210 Nicotine dependence, cigarettes, uncomplicated
CPT/HCPCS: 36415; 80048; 80076; 82306; 83735; 83970; 84100; 85027; 97161; 97165; 99284; 99406; J7030; A4216; J0610

== ENCOUNTER → 2021-11-19 | Outpatient (CLI) | payer MEDICARE, BC, SELFPAY ==
--- NOTE | 2021-11-19 12:49 | STRESSREP ---
Stress Test Report Date: 11-19-2021 Procedure: Pharmacologic stress nuclear imaging study Indications: Shortness of breath/dyspnea on exertion Consent: Per the patient Procedure: The patient underwent pharmacologic (Regadenoson 0.4mg ) evaluation with a peak heart rate of 106 beats per minute (69%predicted maximal heart rate) and a peak blood pressure of 128/82 mmHg. The baseline ECG demonstrated normal sinus rhythm. The peak pharmacologic ECG demonstrated no obvious ECG changes. There were no cardiac dysrhythmias pretest, during pharmacologic infusion, or recovery. There was no complaint of chest discomfort during pharmacologic infusion or recovery. The examination was discontinued secondary to completion of protocol. Impression: 1. Pharmacologic (Regadenoson) evaluation 2. Peak pharmacologic ECG with no obvious ECG changes. 3. There were no cardiac dysrhythmias pretest, during pharmacologic infusion, or recovery. 4. Nuclear images pending Myocardial perfusion imaging study: Technique: The patient was injected with 11.3 millicuries of technetium 99m Cardiolite and subsequently rest SPECT Cardiolite nuclear imaging was obtained in the horizontal long, vertical long, and short axis views. The patient underwent pharmacologic (Regadenoson) evaluation with a peak heart rate of 106 beats per minute (69% percent predicted maximal heart rate) and a peak blood pressure of 128/82 mmHg. The patient was injected with 33.8 millicuries of technetium 99m Cardiolite and subsequently stress SPECT Cardiolite nuclear imaging was obtained in the horizontal long, vertical long, and short axis views. A gated Cardiolite study at peak stress was obtained. Interpretation: Rest and stress SPECT Cardiolite nuclear imaging status post realignment, normalization, and attenuation correction demonstrate relative uniform tracer uptake and myocardial perfusion appearing within normal limits. There is end systolic thickening and brightening. The gated Cardiolite study demonstrates myocardial thickening and inward wall motion. The reported LVEF is 67%. Impression: 1. Rest and stress SPECT Cardiolite nuclear imaging demonstrate relative uniform tracer uptake and myocardial perfusion appearing within normal limits. 2. The gated Cardiolite study reports an LVEF of 67%. This note was generated with [employer] software. It may contain incorrect words, spelling, and punctuation that were not noted in checking the note before signing.
== END | disposition home or self-care (01) ==
PROVIDERS: PCP Student in an Organized Health Care Education/Training Program; Referring Provider Nurse Practitioner Family; Visit Provider Nurse Practitioner Family
DX: R06.02 Shortness of breath (principal); R47.89 Other speech disturbances; R26.9 Unspecified abnormalities of gait and mobility; R25.1 Tremor, unspecified; Z13.6 Encounter for screening for cardiovascular disorders
CPT/HCPCS: 78452; 93017; A9500; A4216; J2785

== ENCOUNTER 2023-01-04 08:45 | Emergency (ER) | payer MEDICARE, BC, SELFPAY ==
[2023-01-04] VITALS (8 sets, daily range): BP systolic 122–145; BP diastolic 73–87; PULSE 77–105; RESP 14–20; TEMP 36.1–36.8; O2SAT 96–100; BMI 19.2
--- NOTE | 2023-01-04 08:58 | CT_ITS ---
STUDY: CT ABDOMEN AND PELVIS WITH CONTRAST REASON FOR EXAM: Male, 67 years old. Left lower quadrant abdominal pain, GI bleed, s/p gastrectomy d/t cancer, esophageal cancer, PAD on blood thinners, anemic, hypertension. RADIATION DOSAGE (If Supplied By Facility): CTDIvol = ( 13.44 ) mGy, DLP = ( 346.32 ) mGycm TECHNIQUE: IV 100mL Isovue-370 was administered. Transaxial images were obtained from the dome of the diaphragm to the symphysis pubis. Multiplanar coronal and sagittal images were reformatted. Individualized Dose Optimization Techniques Were Used For This CT. COMPARISON: No prior examinations are available for comparison. FINDINGS: The visualized lower lungs demonstrate mild stranding/scarring in the lingula. The lungs are somewhat hyperinflated. The visualized portions of the heart are within normal limits. Normal liver. There are surgical clips in the gallbladder fossa consistent with a prior cholecystectomy. Normal spleen. No focal lesion seen in the pancreas. Prominent pancreatic duct and common bile duct. Normal bilateral adrenal glands. There are clips in the gastroesophageal junction. Absent stomach consistent with previous gastrectomy. Significant motion artifacts in upper abdomen limiting the examination. Normal in caliber small bowel loops. Thickening of the colon extending from the cecum to the descending colon consistent with colitis. No evidence of acute diverticulitis. The appendix is not definitely identified. Infrarenal saccular abdominal aortic aneurysm measuring up to 3.9 cm in AP diameter with peripheral clots. Diffuse atherosclerotic calcifications of the abdominal aorta. Calcifications of the proximal SMA. No retroperitoneal adenopathy. 5 cm cyst in the lower pole of the right kidney appears to be simple and no further follow-up exam is needed. Normal left kidney. Circumferential thickening of bladder wall probably due to underdistention. Cystitis is less likely. Slightly prominent prostate. Normal abdominal wall. Degenerative changes in the lower lumbar spine. Grade 1 retrolisthesis of L5 over S1. CT/Abdomen/Pelvis W IV Cont ONLY IMPRESSION: 1. Thickening of the colon extending from the cecum to the descending colon consistent with colitis. 2. Saccular infrarenal abdominal aortic aneurysm measuring up to 3.9 cm in AP diameter for which vascular surgical consultation is recommended. 3. Status post gastrectomy. 4. Circumferential thickening of the bladder wall likely due to underdistention. Cystitis is less likely. Electronically Signed: Feroz Rizzo MD at 10:42 EDT ,
--- NOTE | 2023-01-04 09:05 | ED.VIS.GI ---
HPI HPI - GI History of Present Illness Chief Complaint: GI Bleed Narrative Narrative: 67-year-old male presenting with bright red bleeding per rectum. He states that this only started today but he believes it was a lot of blood. He has had black stools for last couple of days. He complains of some lightheadedness when walking. He states that today he felt so lightheaded he thought he was going to go down. He states he was very diaphoretic. This is improved by sitting. He is comfortable while laying in the bed. He has some left lower quadrant abdominal pain which is noted. 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 He is on Plavix and Xarelto due to history of peripheral arterial disease, right DVTs. Patient states that most of his medical care was performed at [facility] but does state that he has been to [place] a couple of times. PFSH PFSH Home Medications rivaroxaban 20 mg tablet (Xarelto) 20 mg PO DAILY blood thinner 05/04/17 [History Last Taken 11/18/18] acetaminophen 325 mg tablet (Tylenol) 650 mg (2 x 325 mg) PO Q6H PRN PRN Non-cardiac pain (mod-severe) 08/12/18 [Rx Last Taken 11/18/18] ferrous sulfate 325 mg (65 mg iron) tablet 325 mg PO DAILY iron supplement 11/18/18 [History Last Taken 11/17/18] atorvastatin 40 mg tablet 40 mg PO DAILY 01/04/23 [History Last Taken Unknown] clopidogrel 75 mg tablet mg 01/04/23 [History Last Taken Unknown] Allergy/AdvReac Type Severity Reaction Status Date / Time lisinopril AdvReac PASSED Verified 11/18/18 16:08 OUT Social History Smoking Status: Current every day smoker tobacco type: cigarettes ROS ROS ED Constitutional Constitutional ED: Reports sweats; Denies chills or fever(s) ENT ENT ED: Denies rhinorrhea or sore throat Cardiovascular Cardiovascular: Denies chest pain Gastrointestinal Gastrointestinal: Reports abdominal pain, melena and other Details: Bright red bleeding per rectum Genitourinary Genitourinary ED: Denies dysuria or hematuria Musculoskeletal Musculoskeletal: Denies arthralgias or back pain Integumentary Denies abscess or Abrasions Neurologic Neurologic: Denies headache(s) Psychiatric Psychiatric: Denies anxiety or depression EXAM Physical Exam Const Vital Signs: 01/04/23 08:46 01/04/23 10:04 01/04/23 10:59 Temperature 97 F L 97.5 F L Temperature Source Temporal Oral Pulse Rate 105 H 105 H 97 Respiratory Rate 18 14 18 Blood Pressure 122/84 H 134/73 H 131/80 H Blood Pressure Mean 96 93 97 Blood Pressure Source Blood Pressure Position Supine Blood Pressure Location Right Arm Pulse Ox 99 100 Oxygen Delivery Method Room Air Room Air Room Air 01/04/23 11:14 01/04/23 12:49 01/04/23 12:52 Temperature 98 F 98.2 F 98.2 F Temperature Source Oral Oral Oral Pulse Rate 101 H 77 86 Respiratory Rate 16 18 Blood Pressure 140/84 H 132/82 H 132/82 H Blood Pressure Mean 102 98 98 Blood Pressure Source Monitor Blood Pressure Position Supine Blood Pressure Location Pulse Ox 96 99 100 Oxygen Delivery Method Room Air 01/04/23 13:12 01/04/23 13:07 Temperature 97.8 F 98.1 F Temperature Source Temporal Oral Pulse Rate 79 81 Respiratory Rate 16 20 H Blood Pressure 145/78 H 132/87 H Blood Pressure Mean 100 102 Blood Pressure Source Monitor Blood Pressure Position Supine Blood Pressure Location Right Arm Pulse Ox 96 100 Oxygen Delivery Method Room Air Room Air Positive well nourished General Appearance ED: Negative for pallor HEENT Reports moist mucous membranes normocephalic and atraumatic Eyes PERRL and EOMs intact bilaterally Neck no lymphadenopathy Resp normal respiratory effort Effort and Inspection: Negative for respiratory distress GI Palpation: tender LLQ Back/Spine no CVA tenderness Neuro CN's II-XII intact bilaterally and moves all extremities Sensorium / Orientation: alert Motor Exam: strength 5/5 throughout Psych mental status grossly normal Skin General Skin Exam: Negative for jaundice or pallor MDM MDM MDM Narrative Medical decision making narrative: 67-year-old male presenting with GI bleed. He had melena for 2 days and now is having bloody stool. Differential includes gastritis, gastric ulcer, diverticular bleed, colitis, diverticulitis, acute blood loss anemia, dehydration, electrolyte abnormalities. Patient was started on a Protonix drip. He has not had a repeat bloody stool since has been here. He is complaining of some mild left lower quadrant abdominal pain. CBC was obtained to assess white blood cell count, hemoglobin, platelets. CMP to assess liver function, renal function, electrolytes. High-sensitivity opponent and EKG to assess for ischemia. CT of the abdomen pelvis was ordered to rule out diverticulitis. Patient was typed and screened. CBC shows his hemoglobin is 6.9. This is acutely changed. He will be given 2 units. White blood cell count is normal 5.6. Platelets 182. LFTs are unremarkable. Lipase is negative. High-sensitivity troponin within normal limits. EKG sinus rhythm with a ventricular 93 bpm without sign of ischemic change or ectopy on interpretation. Patient initially given a liter of IV fluids and then 2 units of blood were transfused. I spoke with the transfer line for [facility] and they tell me that there is no beds at either [facility] or in [place]. I did call them back as of the beds at [facility] and I was able to speak with the hospitalist there who did accept admission. The patient was consented for transfer. He had no return of bleeding while he was here. He has been normotensive and his tachycardia has improved. CT of the abdomen pelvis shows colitis from the cecum to the descending colon. It does show that he has a saccular aneurysm measuring 3.9 cm in the abdomen. This is not new. Patient was given Cipro and Flagyl to treat his colitis. He was transported in stable condition. Impression: 1. Acute blood loss anemia 2. Upper GI bleed 3. Lower GI bleed Lab Data Attestation: I reviewed the patient's lab results. Labs: Laboratory Results - last 24 hr 01/04/23 08:50 WBC 5.6 RBC 1.92 L Hgb 6.9 L Hct 21.1 L MCV 109.9 H MCH 35.9 H MCHC 32.7 RDW Std Deviation 58.1 H RDW Coeff of Mariella 14.6 Plt Count 182 MPV 11.0 Immature Gran % (Auto) 0.700 Neut % (Auto) 68.4 Lymph % (Auto) 21.5 [place] % (Auto) 8.2 Eos % (Auto) 0.7 Baso % (Auto) 0.5 Absolute Neuts (auto) 3.9 Absolute Lymphs (auto) 1.21 Nucleated RBC % 0 Sodium 141 Potassium 4.0 Chloride 111 H Carbon Dioxide 24.0 Anion Gap 6 BUN 30 H Creatinine 0.97 Estim Creat Clear Calc 58.35 Est GFR (MDRD) Af Amer 98 Est GFR (MDRD) Non-Af 81 BUN/Creatinine Ratio 30.8 H Glucose 113 H Calcium 7.9 L Total Bilirubin 0.30 AST 19 ALT 13 L Alkaline Phosphatase 51 Troponin I High Sens 8 Total Protein 6.6 Albumin 2.3 L Globulin 4.3 H Albumin/Globulin Ratio 0.5 L Lipase 79 H Blood Type A NEGATIVE Antibody Screen NEGATIVE Crossmatch See Detail Radiography Diagnostic Testing: Clinical Impression(s) from Imaging Studies Abdomen/Pelvis CT 01/04/23 08:58 IMPRESSION: 1. Thickening of the colon extending from the cecum to the descending colon consistent with colitis. 2. Saccular infrarenal abdominal aortic aneurysm measuring up to 3.9 cm in AP diameter for which vascular surgical consultation is recommended. 3. Status post gastrectomy. 4. Circumferential thickening of the bladder wall likely due to underdistention. Cystitis is less likely. Electronically Signed: Feroz Rizzo MD at 10:42 EDT , Critical Care Time Critical Care Time: Yes Critical care time (excluding procedures): 30-74 minutes (30), Discussing w/Patient &/or Family/Tier And Detonator, Discussing w/Consultants, Arranging Admission or Transfer and Performing Direct Patient Care at Bedside Discharge Plan Triage Chief Complaint: GI Bleed Other Complaint: Dizziness ED Provider: Ajit Jean Dx/Rx/DC Orders Prescriptions: No Action Xarelto 20 MG tablet 20 mg PO DAILY Patient Comments: blood thinner acetaminophen [Tylenol] 325 MG tablet 650 mg PO Q6H PRN PRN (Reason: Non-cardiac pain (mod-severe)) 0RF ferrous sulfate 325 MG tablet 325 mg PO DAILY atorvastatin 40 mg tablet 40 mg PO DAILY Patient Comments: TAKE 1 TABLET BY MOUTH EVERY DAY clopidogrel 75 mg tablet Patient Comments: TAKE 1 TABLET BY MOUTH EVERY DAY Primary Care Provider: Lamonte Michael Referrals: Lamonte Michael DO [Primary Care Provider] - Disposition Disposition: Acute Care Hospital Discharge Location: [facility] Discharge Date/Time: 01/04/23 14:34
--- NOTE | 2023-01-04 09:08 | EKG12_ITS ---
Test Reason : GI Blood Pressure : / mmHG Vent. Rate : 093 BPM Atrial Rate : 093 BPM P-R Int : 162 ms QRS Dur : 098 ms QT Int : 380 ms P-R-T Axes : 083 073 057 degrees QTc Int : 472 ms Normal sinus rhythm Normal ECG Confirmed by RAMU NETTLES, SABRA ([id number]), editor in chief TYSON BOOKER ([id number]) on 01/08/2023 11:32:03 AM Referred By: Confirmed By:SABRA GUALLPA MD
[2023-01-04 09:13] LABS: Absolute Lymphocyte Count 1.21 X10^3/uL (0.83-4.51); Absolute Neutrophil Count 3.9 X10^3/uL (2.0-7.7); Basophil# 0.03 X10^3/uL; Basophil% 0.5 % (0-1); Eosinophil# 0.04 X10^3/uL; Eosinophils% 0.7 % (0-5); Hematocrit 21.1 % (40-54); Hemoglobin 6.9 g/dL (13.0-16.5); Lymphocyte # 1.21 X10^3/ul (0.83-4.51); Lymphocyte % 21.5 % (19-41); Mean Corp Hgb Conc 32.7 g/dL (32-36); Mean Corpuscular Hgb 35.9 pg (27.0-32.0); Mean Corpuscular Volume 109.9 fL (80-94); Monocyte# 0.46 X10^3/uL; Monocyte% 8.2 % (0-10); NRBC Flagged by Analyzer 0 % (0-5); Neutrophil # 3.86 X10^3/uL (2.7-7.7); Neutrophil % 68.4 % (47-70); Platelet Count 182 K/mm3 (150-450); RBC Distribution Width CV 14.6 % (11.6-14.6); RBC Distribution Width SD 58.1 fl (35.1-43.9); Red Blood Count 1.92 M/mm3 (4.6-6.2); White Blood Count 5.6 K/mm3 (4.4-11.0)
[2023-01-04] MEDS: 0.9% Normal Saline 1,000 ML 1000 ML IV (09:30)
[2023-01-04 09:32] LABS: ALB/GLOB Ratio 0.5 RATIO (0.9-2.4); AST(SGOT) 19 U/L (15-37); Alanine Aminotransfer ALT/SGPT 13 U/L (16-61); Albumin, Serum 2.3 g/dL (3.2-5.0); Alkaline Phosphatase 51 U/L (45-117); Anion Gap 6 (5-15); BUN 30 mg/dL (7-18); BUN/Creat Ratio 30.8 RATIO (10-20); Calcium,Total 7.9 mg/dL (8.5-10.1); Chloride 111 mmol/L (98-107); Creatinine, Serum 0.97 mg/dL (0.70-1.30); EST Glomerular Filtration Rate 81 mL/min (>60); Est Glom Filt Rate - Afr Amer 98 mL/min (>60); Estimated Creatinine Clearance 58.35 ml/min; Globulin 4.3 g/dL (2.2-4.2); Glucose 113 mg/dL (74-106); Lipase 79 U/L (13-75); Protein, Total 6.6 g/dL (6.4-8.2); Sodium Level 141 mmol/L (136-145); Troponin-I HS 8 pg/mL (3.0-78.0)
--- NOTE | 2023-01-04 14:07 | ED.RN ---
Report given to Amy Bartlett at [facility]
== END 2023-01-04 14:34 | disposition short-term general hospital (02) ==
PROVIDERS: Emergency Provider Student in an Organized Health Care Education/Training Program; PCP Student in an Organized Health Care Education/Training Program; Visit Provider Student in an Organized Health Care Education/Training Program
DX: D62 Acute posthemorrhagic anemia (principal); K92.2 Gastrointestinal hemorrhage, unspecified; F17.210 Nicotine dependence, cigarettes, uncomplicated; Z79.899 Other long term (current) drug therapy; Z79.01 Long term (current) use of anticoagulants
CPT/HCPCS: 74177; 80053; 83690; 84484; 85025; 86850; 86900; 86901; 86920; 86922; 93005; 96365; 96366; 99284; J7040; P9016; Q9967; A4216; J3490

== ENCOUNTER 2023-03-31 06:49 | Inpatient (IN) | payer MEDICARE, BC, SELFPAY ==
[2023-03-31] VITALS (16 sets, daily range): BP systolic 73–141; BP diastolic 50–87; PULSE 83–136; RESP 16–28; TEMP 36.5–37; O2SAT 77–100; BMI 19.9; BMI 19.3
[2023-03-31] MEDS: 0.9% Normal Saline (1000mL) 1,000 ML 1000 ML IV (06:49)
--- NOTE | 2023-03-31 07:11 | EX.ED.DYSGE1 ---
HPI History of Present Illness Chief Complaint: GI Bleed Informant: patient Narrative Narrative: Increasing dyspnea lightheaded symptoms since yesterday. Similar symptoms with GI bleed issues from . He was given 2 units of blood at that time. He states initially seen here transfer to [facility] states that upper and lower endoscopies that were negative. He is on Plavix and Xarelto. He has history of DVT. His last dose Xarelto was yesterday morning. Denies abdominal pain. He states his stools are noted to be more black. History of COPD with tobacco. No home oxygen. Reports cough for the last 6 to 8 weeks. On presentation hypoxic, hypotensive and tachycardic. Denies any syncopal episodes. Prior similar symptoms: Yes PFSH PFSH Medical History PVD (peripheral vascular disease) Stomach cancer Throat cancer Home Medications rivaroxaban 20 mg tablet (Xarelto) 20 mg PO DAILY blood thinner 05/04/17 [History Last Taken 11/18/18] acetaminophen 325 mg tablet (Tylenol) 650 mg (2 x 325 mg) PO Q6H PRN PRN Non-cardiac pain (mod-severe) 08/12/18 [Rx Last Taken 11/18/18] ferrous sulfate 325 mg (65 mg iron) tablet 325 mg PO DAILY iron supplement 11/18/18 [History Last Taken 11/17/18] atorvastatin 40 mg tablet 40 mg PO DAILY 01/04/23 [History Last Taken Unknown] clopidogrel 75 mg tablet 75 mg PO DAILY 01/04/23 [History Last Taken Unknown] cyanocobalamin (vitamin B-12) .ROUTE 03/31/23 [History Last Taken Unknown] Allergy/AdvReac Type Severity Reaction Status Date / Time lisinopril AdvReac PASSED Verified 03/31/23 06:50 OUT Surgical History History of cholecystectomy Social History (Updated 03/31/23 @ 10:27 by Carmen Dean) household members: spouse Smoking Status: Current every day smoker tobacco type: cigarettes ROS ROS ED Constitutional Constitutional ED: Denies chills, fever(s) or sweats Eyes Eyes: Denies change in vision ENT ENT ED: Denies dysphagia or sore throat Cardiovascular Cardiovascular: Denies chest pain, leg edema, palpitations or racing heartbeat Respiratory/Chest Respiratory/Chest: Reports dyspnea and dyspnea on exertion; Denies cough Gastrointestinal Gastrointestinal: Reports melena; Denies abdominal pain, diarrhea, nausea or vomiting Genitourinary Genitourinary ED: Denies dysuria, hematuria or urinary frequency Musculoskeletal Musculoskeletal: Denies back pain, extremity pain or neck pain Integumentary Denies rash or wounds Neurologic Neurologic: Denies headache(s), paresthesias or weakness EXAM Physical Exam Const Vital Signs: 03/31/23 06:50 03/31/23 07:03 03/31/23 07:35 Temperature 98.6 F 98.6 F Temperature Source Oral Oral Pulse Rate 136 H 133 H 123 H Respiratory Rate 28 H 24 H 28 H Blood Pressure 73/57 L 82/60 L 76/50 L Blood Pressure Mean 62 67 58 Pulse Ox 77 84 92 Oxygen Delivery Method Room Air Nasal Cannula Oxygen Flow Rate (L/min) 6 03/31/23 07:59 03/31/23 08:14 Temperature 97.8 F Temperature Source Temporal Pulse Rate 121 H Respiratory Rate 26 H Blood Pressure 141/87 H Blood Pressure Mean 105 Pulse Ox 91 95 Oxygen Delivery Method Nasal Cannula Nasal Cannula Oxygen Flow Rate (L/min) 5 5 Positive well nourished and well developed Constitutional Narrative: 4 L nasal cannula General Appearance ED: well developed and NAD HEENT Reports moist mucous membranes normocephalic and atraumatic Eyes PERRL and EOMs intact bilaterally General Eye ED: Yes normal appearance of both eyes and pale conjunctiva Neck no lymphadenopathy and supple General: Negative for tenderness Chest Wall Chest: Negative for tenderness Resp normal respiratory effort and normal air movement Effort and Inspection: symmetric chest movement; Negative for respiratory distress Cardio regular rhythm and no murmurs Rate: tachycardic Peripheral Pulses: pulses 2+ throughout GI normal to inspection, nondistended, normoactive bowel sounds and non-tender Palpation: Negative for guarding or rebound tenderness present Back/Spine no CVA tenderness and no thoracic nor lumbar tenderness Extremity normal to inspection General Extremety ED: Negative for edema or tenderness General Extremity: Negative for edema Neuro oriented x3 and no sensory deficits noted Sensorium / Orientation: awake and alert Skin no rashes or lesions noted and no wounds Sepsis Attestation Sepsis Attestation: Agree w/Sepsis Date exam was performed: 03/31/23 Time exam was performed: 08:00 Sepsis Organ Dysfunction Criteria Present: SBP < 90 mmHg or MAP < 65 mmHg and Lactic Acid > 2 mmol/L Fluid Resuscitation Fluid resuscitation indicated?: Yes Fluid Resuscitation ordered: 30 ml/kg fluid bolus ordered Amount of fluid ordered: 2,000 Sepsis Note Date exam was performed: 03/31/23 Time exam was performed: 09:22 Sepsis Attestation: Sepsis re-evaluation was performed Response to fluids: Fluid responsive hypotension MDM MDM MDM Narrative Medical decision making narrative: Interventions / MDM: Differential diagnosis: Pneumonia, sepsis, Diagnosis considered but do not suspect: GI bleed however Hemoccult negative hemoglobin 12.2. My EKG interpretation: EKG: Sinus rate of 112, no ST or T wave changes. Imaging independently reviewed and interpreted by myself: 1 view chest x-ray: Left lower lobe pneumonia External documents reviewed: N/A Test considered but not ordered:N/A ED course: Patient presenting hypotension blood pressure 70s and 80s. Fluid boluses were ordered. Sepsis labs were ordered. He had pale conjunctiva with history of GI bleed. Labs ordered including Hemoccult. On rectal exam however noted brown stools. 0725: Portable chest bedside concerning left lower lobe pneumonia. I did add lactic acid and blood cultures with additional sepsis in the differential. Rocephin and Zithromax started. Fluids are being continued. He is on 6 L nasal cannula no respiratory distress will place on high flow oxygen with an ABG. 0805: ABG pH of 7.4 CO2 30 PaO2 59. Currently on 5 L of oxygen. He is 1.5 L of fluids and current systolic blood pressure 140. Hospitalist Dr. Cote in the department, he is evaluate the patient for planned admission. 2 L and patient responded to fluid systolic blood pressure 110 on reevaluation. Continued on IV fluids. Lactic acid and return 3.1. COVID and flu negative. Count more. Severe sepsis responding to fluids. Stable on 5 L of oxygen. Patient admitted to PCU for further management. Re-evaluation: stable Disposition discussed with patient/family/significant other: Patient Case discussed with consulting clinician: Hospitalist This note was generated with [employer] dictation software. It may contain incorrect words, spelling, and punctuation that were not noted in checking the note before signing. Lab Data Attestation: I reviewed the patient's lab results. Labs: Laboratory Results - last 24 hr 03/31/23 07:22 WBC 4.3 L RBC 3.59 L Hgb 12.2 L Hct 38.4 L MCV 107.0 H MCH 34.0 H MCHC 31.8 L RDW Std Deviation 57.1 H RDW Coeff of Mariella 14.5 Plt Count 170 MPV 11.3 Immature Gran % (Auto) 0.200 Neut % (Auto) 80.1 H Lymph % (Auto) 13.3 L [place] % (Auto) 5.9 Eos % (Auto) 0.0 Baso % (Auto) 0.5 Absolute Neuts (auto) 3.4 Absolute Lymphs (auto) 0.57 L Nucleated RBC % 0 Differential Comment SCANNED PT 13.4 INR 1.0 APTT 24.2 Sodium 142 Potassium 3.7 Chloride 113 H Carbon Dioxide 22.0 Anion Gap 7 BUN 13 Creatinine 1.14 Estim Creat Clear Calc 51.38 Est GFR (MDRD) Af Amer 82 Est GFR (MDRD) Non-Af 68 BUN/Creatinine Ratio 11.4 Glucose 85 Lactic Acid 3.1 H* Calcium 8.3 L Total Bilirubin 0.60 AST 24 ALT 16 Alkaline Phosphatase 57 Total Protein 6.8 Albumin 2.7 L Globulin 4.1 Albumin/Globulin Ratio 0.7 L Blood Type A NEGATIVE Antibody Screen NEGATIVE ABG Data ABG results: ABG 03/31/23 07:59 Specimen Type ART Sample Site R Radial pH 7.42 Bicarbonate Actual 19.6 L Total CO2 21 Base Excess -5 L O2 Saturation 91 L O2 % 5.0 ABG pCO2 30.4 L ABG pO2 60 L Xiang Test Positive O2 Delivery Device Cannula Vent Mode Not entered Radiography Diagnostic Testing: Clinical Impression(s) from Imaging Studies Chest X-Ray 03/31/23 07:20 IMPRESSION: Patchy consolidation in the left mid and lower lung consistent with pneumonia. Electronically Signed: Ezra Moya MD at 7:33 EST , Critical Care Time Critical Care Time: Yes Critical care time (excluding procedures): 30-74 minutes, Including time spent:, Discussing w/Patient &/or Family/Scanning Clerk, Discussing w/Consultants, Arranging Admission or Transfer, Performing Direct Patient Care at Bedside and - (35 minutes) Discharge Plan Dx/Rx/DC Orders Clinical Impression: Community acquired pneumonia, Hypoxia, Sepsis Disposition Disposition: Acute Care Hospital [facility] Discharge Date/Time: 03/31/23 09:55
--- NOTE | 2023-03-31 07:20 | RAD_ITS ---
EXAM: XR CHEST, 1 VIEW CLINICAL INDICATION: sob TECHNIQUE: Frontal view of the chest. COMPARISON: 11/02/2018. FINDINGS: LUNGS AND PLEURAL SPACES: Patchy consolidation in the left mid and lower lung consistent with pneumonia. No pneumothorax. No effusion. HEART: Unremarkable. Cardiac silhouette not enlarged. MEDIASTINUM: Central airways and mediastinal contour are unremarkable. BONES/JOINTS: Unremarkable. No acute fracture. SOFT TISSUES: Unremarkable. RAD/Chest 1 View (Portable) IMPRESSION: Patchy consolidation in the left mid and lower lung consistent with pneumonia. Electronically Signed: Ezra Moya MD at 7:33 EST ,
--- NOTE | 2023-03-31 07:37 | ED.RN ---
FIRST BAG OF FLUIDS STARTED BY EMS.
[2023-03-31 07:57] LABS: Absolute Lymphocyte Count 0.57 X10^3/uL (0.83-4.51); Absolute Neutrophil Count 3.4 X10^3/uL (2.0-7.7); Basophil# 0.02 X10^3/uL; Basophil% 0.5 % (0-1); Hematocrit 38.4 % (40-54); Hemoglobin 12.2 g/dL (13.0-16.5); Lymphocyte # 0.57 X10^3/ul (0.83-4.51); Lymphocyte % 13.3 % (19-41); Mean Corp Hgb Conc 31.8 g/dL (32-36); Mean Platelet Vol. 11.3 fl (6.2-12.0); Monocyte# 0.25 X10^3/uL; Monocyte% 5.9 % (0-10); NRBC Flagged by Analyzer 0 % (0-5); Neutrophil # 3.42 X10^3/uL (2.7-7.7); Neutrophil % 80.1 % (47-70); POSITIVE DIFFERENTIAL YES; Platelet Count 170 K/mm3 (150-450); RBC Distribution Width CV 14.5 % (11.6-14.6); RBC Distribution Width SD 57.1 fl (35.1-43.9); Red Blood Count 3.59 M/mm3 (4.6-6.2); White Blood Count 4.3 K/mm3 (4.4-11.0)
[2023-03-31] MEDS: 0.9% Normal Saline (1000mL) 1,000 ML 999 ML IV (08:00)
[2023-03-31 08:03] LABS: ALB/GLOB Ratio 0.7 RATIO (0.9-2.4); AST(SGOT) 24 U/L (15-37); Alanine Aminotransfer ALT/SGPT 16 U/L (16-61); Albumin, Serum 2.7 g/dL (3.2-5.0); Alkaline Phosphatase 57 U/L (45-117); Anion Gap 7 (5-15); BUN 13 mg/dL (7-18); BUN/Creat Ratio 11.4 RATIO (10-20); Calcium,Total 8.3 mg/dL (8.5-10.1); Chloride 113 mmol/L (98-107); Creatinine, Serum 1.14 mg/dL (0.70-1.30); EST Glomerular Filtration Rate 68 mL/min (>60); Est Glom Filt Rate - Afr Amer 82 mL/min (>60); Estimated Creatinine Clearance 51.38 ml/min; Globulin 4.1 g/dL (2.2-4.2); Glucose 85 mg/dL (74-106); Potassium 3.7 mmol/L (3.5-5.1); Protein, Total 6.8 g/dL (6.4-8.2); Sodium Level 142 mmol/L (136-145)
[2023-03-31 08:04] LABS: Allen Test Positive; Base Excess -5 mmol/L (-2 to +2); Bicarbonate 19.6 mmol/L (22-26); Blood Gas Specimen Type ART; Mode Not entered; O2 Delivery Device Cannula; PO2 60 mmHG (75-100); SITE R Radial; SO2 91 % (95-99); Total Carbon Dioxide 21 mmol/L; pCO2 30.4 mmHg (35-45); pH 7.42 (7.35-7.45)
[2023-03-31] MEDS: Ceftriaxone 2 GM in 0.9% Normal Saline (50mL MB+) 50 ML IV (08:14)
[2023-03-31 08:45] LABS: Differential Indicated SCAN CRITERIA MET
[2023-03-31 08:46] LABS: Lactic Acid 3.1 mmol/L (0.4-1.9)
--- NOTE | 2023-03-31 09:03 | NURSING ---
PCU TERELETSKY PNEUMONIA
--- NOTE | 2023-03-31 09:04 | EKG12_ITS ---
Test Reason : GI BLEED Blood Pressure : / mmHG Vent. Rate : 112 BPM Atrial Rate : 112 BPM P-R Int : 180 ms QRS Dur : 088 ms QT Int : 322 ms P-R-T Axes : 073 086 069 degrees QTc Int : 439 ms Sinus tachycardia Septal infarct , age undetermined Abnormal ECG Confirmed by RAMU NETTLES, SABRA ([id number]), science editor TYRESE DEJESUS ([id number]) on 04/01/2023 10:45:28 AM Referred By: JAIRO Confirmed By:SABRA GUALLPA MD
[2023-03-31] MEDS: Azithromycin 500 MG in Dextrose 5%-Water (250mL Bag) 250 ML 250 MG IV (09:06)
[2023-03-31] MEDS: 0.9% Normal Saline (1000mL) 1,000 ML 125 ML IV ×3 (09:06→17:33)
[2023-03-31 09:23] LABS: Partial Thromboplast Time 24.2 Seconds (24.1-36.2); Prothrombin Time (Protime)PT. 13.4 SECONDS (11.7-14.9)
[2023-03-31 10:50] LABS: Differential Comment SCANNED
[2023-03-31] MEDS: Ferrous Sulfate 325 MG Tablet PO (11:21)
[2023-03-31] MEDS: Clopidogrel Bisulfate 75 MG Tablet PO (11:21)
[2023-03-31 11:36] LABS: Reflex Lactate? Y
[2023-03-31 12:54] LABS: Lactic Acid 2.5 mmol/L (0.4-1.9)
[2023-03-31] MEDS: Ipratropium/Albuterol Sulfate 3 ML AMPUL.NEB INHALATION ×2 (13:13→19:50)
[2023-03-31] MEDS: Rivaroxaban 20 MG Tablet PO (16:37)
--- NOTE | 2023-03-31 17:51 | HP.PCM.HOS_ITS ---
HPI - General General Date of Admission: 03/31/23 Date of Service: 03/31/23 Chief Complaint: Lightheadedness HPI Narrative ALFREDA RAMIREZ, is a 67 M who presents to the emergency room at [facility] with complaints of dyspnea and lightheadedness since yesterday. Patient had a past history of GI bleed and he was concerned that he could have a repeat GI bleed. Patient also has a history of COPD, he is not on any home oxygen, he has complained of a nonproductive cough over the last 6 to 8 weeks. On presentation to the emergency room, patient was afebrile, his blood pressure was 73/57 and his pulse ox on room air was initially 77. Patient was placed on nasal cannula oxygen at 6 L initially and given IV fluids, on recheck patient's blood pressure was 141/87 and he only required 5 L of oxygen via nasal cannula. Work-up included a chest x-ray which showed a diffuse left-sided pneumonia, CBC showed a white blood cell count of 4.3, hemoglobin was 12.2 and chemistry profile was unremarkable. Patient was admitted to PCU for hypoxia and left-sided community-acquired pneumonia, he was given IV Rocephin and Zithromax, he will be maintained on these 2 antibiotics and his pulse ox will be monitored. Respiratory panel, urine antigen for Legionella and strep were ordered. Sputum culture was ordered. [facility] Medical History PVD (peripheral vascular disease) Stomach cancer Throat cancer Home Medications rivaroxaban 20 mg tablet (Xarelto) 20 mg PO DAILY blood thinner 05/04/17 [History Last Taken 11/18/18] acetaminophen 325 mg tablet (Tylenol) 650 mg (2 x 325 mg) PO Q6H PRN PRN Non- cardiac pain (mod-severe) 08/12/18 [Rx Last Taken 11/18/18] ferrous sulfate 325 mg (65 mg iron) tablet 325 mg PO DAILY iron supplement 11/18/18 [History Last Taken 11/17/18] atorvastatin 40 mg tablet 40 mg PO DAILY 01/04/23 [History Last Taken Unknown] clopidogrel 75 mg tablet 75 mg PO DAILY 01/04/23 [History Last Taken Unknown] cyanocobalamin (vitamin B-12) .ROUTE 03/31/23 [History Last Taken Unknown] Allergy/AdvReac Type Severity Reaction Status Date / Time lisinopril AdvReac PASSED Verified 03/31/23 06:50 OUT Surgical History History of cholecystectomy Social History (Updated 03/31/23 @ 10:27 by Carmen Dean) household members: spouse Smoking Status: Current every day smoker tobacco type: cigarettes ROS Constitutional Constitutional: Reports fatigue, malaise and weakness; Denies anorexia, change in weight, fever(s) or night sweats Eyes Eyes: Denies blurry vision, change in vision, discharge from eye(s) or eye pain Cardiovascular Cardiovascular: Reports dyspnea on exertion and lightheadedness; Denies chest pain, claudication, edema or palpitations Respiratory/Chest Respiratory/Chest: Reports cough, shortness of breath at rest and shortness of breath with exertion; Denies hemoptysis Gastrointestinal Gastrointestinal: Denies abdominal pain, constipation, diarrhea, hematemesis, hematochezia, melena, nausea or vomiting Genitourinary Genitourinary: Denies dysuria, hematuria, urinary frequency, urinary hesitancy, urinary incontinence or urinary urgency Musculoskeletal Musculoskeletal: Denies back pain, joint pain, joint stiffness, joint swelling, myalgias or neck pain Neurologic Neurologic: Denies abnormal gait, abnormal speech, dizziness, focal weakness, headache(s), loss of vision, numbness, other visual disturbances, paresthesias, syncope or tingling Psychiatric Psychiatric: Denies anxiety, cognitive impairment, depression, irritability, mood swings or suicidal ideation Endocrine Endocrinology: Denies change in body appearance, cold intolerance, excessive sweating, heat intolerance, polydipsia or polyuria Hematologic/Lymphatic Hematologic/Lymphatic: Denies none, anemia, easy bleeding, easy bruising or lymphadenopathy Allergic/Immunologic Allergic/Immunologic: Denies rhinitis, urticaria, eczemia or asthma Vital Signs Vital Signs Vital Signs: 03/31/23 06:50 03/31/23 07:03 03/31/23 07:35 Temperature 98.6 F 98.6 F Temperature Source Oral Oral Pulse Rate 136 H 133 H 123 H Respiratory Rate 28 H 24 H 28 H Respiratory Effort Respiratory Depth Respiratory Pattern Blood Pressure 73/57 L 82/60 L 76/50 L Blood Pressure Mean 62 67 58 Blood Pressure Source Blood Pressure Position Blood Pressure Location Pulse Ox 77 84 92 Oxygen Delivery Method Room Air Nasal Cannula Oxygen Flow Rate (L/min) 6 03/31/23 07:59 03/31/23 08:14 03/31/23 09:07 Temperature 97.8 F 97.8 F Temperature Source Temporal Temporal Pulse Rate 121 H 116 H Respiratory Rate 26 H 22 H Respiratory Effort Respiratory Depth Respiratory Pattern Blood Pressure 141/87 H 123/76 H Blood Pressure Mean 105 91 Blood Pressure Source Blood Pressure Position Blood Pressure Location Pulse Ox 91 95 96 Oxygen Delivery Method Nasal Cannula Nasal Cannula Nasal Cannula Oxygen Flow Rate (L/min) 5 5 5 03/31/23 09:09 03/31/23 09:11 03/31/23 09:46 Temperature 97.8 F 97.7 F L Temperature Source Temporal Temporal Pulse Rate 114 H 114 H 104 H Respiratory Rate 22 H 22 H 16 Respiratory Effort Respiratory Depth Respiratory Pattern Blood Pressure 123/76 H 123/76 H 107/73 Blood Pressure Mean 91 91 84 Blood Pressure Source Blood Pressure Position Blood Pressure Location Pulse Ox 96 96 98 Oxygen Delivery Method Nasal Cannula Nasal Cannula Nasal Cannula Oxygen Flow Rate (L/min) 5 5 3 03/31/23 10:08 03/31/23 10:39 03/31/23 11:24 Temperature 98.4 F Temperature Source Oral Pulse Rate 101 H Respiratory Rate 16 Respiratory Effort Normal Non-Labored Respiratory Depth Normal Respiratory Pattern Normal Blood Pressure 122/84 H Blood Pressure Mean 96 Blood Pressure Source Monitor Blood Pressure Position Semi-Fowlers Blood Pressure Location Right Arm Pulse Ox 97 95 Oxygen Delivery Method Nasal Cannula Nasal Cannula Nasal Cannula Oxygen Flow Rate (L/min) 3 3 3 03/31/23 10:08 03/31/23 13:14 03/31/23 15:04 Temperature 98.4 F 98.6 F Temperature Source Oral Temporal Pulse Rate 101 H 102 H 83 Respiratory Rate 16 22 H 16 Respiratory Effort Respiratory Depth Respiratory Pattern Tachypnea Blood Pressure 122/84 H 126/83 H Blood Pressure Mean 96 97 Blood Pressure Source Monitor Blood Pressure Position Semi-Fowlers Blood Pressure Location Right Arm Pulse Ox 97 100 Oxygen Delivery Method Nasal Cannula Nasal Cannula Oxygen Flow Rate (L/min) 3 3 03/31/23 15:08 03/31/23 15:04 Temperature 98.6 F Temperature Source Temporal Pulse Rate 83 Respiratory Rate 16 Respiratory Effort Normal Non-Labored Respiratory Depth Normal Respiratory Pattern Normal Blood Pressure 126/83 H Blood Pressure Mean 97 Blood Pressure Source Blood Pressure Position Blood Pressure Location Pulse Ox 100 Oxygen Delivery Method Nasal Cannula Nasal Cannula Oxygen Flow Rate (L/min) 3 3 Weight Weight: 57.47 kg Body Mass Index (BMI) 19.3 Physical Exam Const alert, oriented x3, no apparent distress and average body habitus General Appearance: cooperative, well kempt and well developed Orientation / Consciousness: awake, oriented to person, oriented to place and oriented to time HEENT normocephalic, head/scalp atraumatic, hearing grossly normal bilaterally and moist oral mucous membranes Eyes PERRL, EOMs intact bilaterally and conjunctivae normal Neck supple, no JVD, thyroid normal and no carotid bruits General: trachea midline Resp normal respiratory effort, no retractions and no use of accessory muscles Resp Narrative: There are inspiratory rales noted over the patient's left lower lung garcia Auscultation: rales left lower; Negative for rhonchi or wheezes Cardio regular rate, regular rhythm, S1 normal heart sound, S2 normal heart sound, no murmurs, no rub and no gallops GI normal to inspection, nondistended, normoactive bowel sounds, soft to palpation, non-tender and non-distended Extremity no clubbing, cyanosis or edema Skin no rashes or lesions noted General Skin Exam: no breakdown Neuro oriented x3, CN's II-XII intact bilaterally, moves all extremities, no focal motor deficits and no sensory deficits noted Sensorium / Orientation: awake, alert, oriented to person, oriented to place and oriented to time Speech: speech normal Psych affect normal Results Lab / Micro Data 03/31/23 07:22 03/31/23 07:22 Labs: Laboratory Results - last 24 hr 03/31/23 07:22: WBC 4.3 L, RBC 3.59 L, Hgb 12.2 L, Hct 38.4 L, MCV 107.0 H, MCH 34.0 H, MCHC 31.8 L, RDW Std Deviation 57.1 H, RDW Coeff of Mariella 14.5, Plt Count 170, MPV 11.3, Immature Gran % (Auto) 0.200, Neut % (Auto) 80.1 H, Lymph % (Auto) 13.3 L, [place] % (Auto) 5.9, Eos % (Auto) 0.0, Baso % (Auto) 0.5, Absolute Neuts (auto) 3.4, Absolute Lymphs (auto) 0.57 L, Nucleated RBC % 0, Differential Comment SCANNED, PT 13.4, INR 1.0, APTT 24.2, Sodium 142, Potassium 3.7, Chloride 113 H, Carbon Dioxide 22.0, Anion Gap 7, BUN 13, Creatinine 1.14, Estim Creat Clear Calc 51.38, Est GFR (MDRD) Af Amer 82, Est GFR (MDRD) Non-Af 68, BUN/Creatinine Ratio 11.4, Glucose 85, Lactic Acid 3.1 H*, Calcium 8.3 L, Total Bilirubin 0.60, AST 24, ALT 16, Alkaline Phosphatase 57, Total Protein 6.8, Albumin 2.7 L, Globulin 4.1, Albumin/Globulin Ratio 0.7 L, Blood Type A N EGATIVE, Antibody Screen NEGATIVE 03/31/23 12:03: Lactic Acid 2.5 H* Micro: Microbiology 03/31/23 11:10 Mucosa - Nasopharyngeal Respiratory Panel (PCR) - Final 03/31/23 11:57 Urine, Clean Catch Legionella Antigen - Final 03/31/23 11:57 Urine, Clean Catch Streptococcus pneumoniae Antigen (M - Final 03/31/23 07:40 Nasal Secretion SARS-CoV-2 & FLU Antigen (Rapid) - Final 03/31/23 07:28 Stool Stool Occult Blood (ROMAN) - Final ABG Data ABG results: ABG 03/31/23 07:59 Specimen Type ART Sample Site R Radial pH 7.42 Bicarbonate Actual 19.6 L Total CO2 21 Base Excess -5 L O2 Saturation 91 L O2 % 5.0 ABG pCO2 30.4 L ABG pO2 60 L Xiang Test Positive O2 Delivery Device Cannula Vent Mode Not entered Imagaing Radiology Impression Chest X-Ray 03/31/23 07:20 IMPRESSION: Patchy consolidation in the left mid and lower lung consistent with pneumonia. Electronically Signed: Ezra Moya MD at 7:33 EST , Assessment & Plan Assessment/Plan (1) Community acquired pneumonia: PLAN: Plan 1. Left-sided community-acquired pneumonia-patient was admitted to PCU, he will remain on IV Zithromax and Rocephin, sputum culture was ordered, urine antigens for strep and Legionella were ordered, respiratory panel was ordered. #2 hypoxia secondary to #1-pulse ox will be monitored, patient will receive aero kathleen treatments #3 chronic obstructive pulmonary disease-patient will be given aerosol treatments, pulse ox will be monitored, complicates care, medical course, recovery, and prognosis #4 peripheral vascular disease-patient will remain on Plavix and Xarelto #5 history of stomach cancer-patient had his stomach resected 3 years ago for stomach cancer, he is not currently under treatment, complicates care, medical course, recovery, and prognosis Total clinical time spent by myself addressing patient's medical issues, reviewing all of his data, and collaborating with patient's care team: 55 min utes Charges/Coding Visit Charges Inpatient E&M: 21192 Init Hosp L2
[2023-03-31] MEDS: Atorvastatin Calcium 40 MG Tablet PO (19:48)
[2023-04-01] VITALS (8 sets, daily range): BP systolic 116–129; BP diastolic 72–86; PULSE 80–101; RESP 16–20; TEMP 36.1–36.4; O2SAT 93–99
[2023-04-01] MEDS: Ipratropium/Albuterol Sulfate 3 ML AMPUL.NEB INHALATION ×3 (01:31→13:31)
[2023-04-01] MEDS: 0.9% Normal Saline (1000mL) 1,000 ML 125 ML IV (01:32)
[2023-04-01 07:36] LABS: Absolute Neutrophil Count 7.4 X10^3/uL (2.0-7.7); Basophil# 0.03 X10^3/uL; Basophil% 0.3 % (0-1); Eosinophil# 0.05 X10^3/uL; Eosinophils% 0.6 % (0-5); Hematocrit 27.5 % (40-54); Lymphocyte % 11.1 % (19-41); Mean Corp Hgb Conc 32.7 g/dL (32-36); Mean Platelet Vol. 11.1 fl (6.2-12.0); Monocyte# 0.45 X10^3/uL; NRBC Flagged by Analyzer 0 % (0-5); Neutrophil # 7.41 X10^3/uL (2.7-7.7); Neutrophil % 81.9 % (47-70); POSITIVE MORPHOLOGY YES; Platelet Count 106 K/mm3 (150-450); RBC Distribution Width CV 14.6 % (11.6-14.6); RBC Distribution Width SD 57.8 fl (35.1-43.9); Red Blood Count 2.57 M/mm3 (4.6-6.2)
[2023-04-01 07:45] LABS: Differential Indicated SCAN CRITERIA MET
[2023-04-01 08:05] LABS: ALB/GLOB Ratio 0.6 RATIO (0.9-2.4); AST(SGOT) 16 U/L (15-37); Alanine Aminotransfer ALT/SGPT 11 U/L (16-61); Alkaline Phosphatase 40 U/L (45-117); Anion Gap 3 (5-15); BUN 15 mg/dL (7-18); BUN/Creat Ratio 17.2 RATIO (10-20); Calcium,Total 7.3 mg/dL (8.5-10.1); Chloride 112 mmol/L (98-107); Creatinine, Serum 0.87 mg/dL (0.70-1.30); EST Glomerular Filtration Rate 92 mL/min (>60); Est Glom Filt Rate - Afr Amer 112 mL/min (>60); Estimated Creatinine Clearance 65.14 ml/min; Globulin 3.4 g/dL (2.2-4.2); Glucose 79 mg/dL (74-106); Potassium 3.5 mmol/L (3.5-5.1); Protein, Total 5.4 g/dL (6.4-8.2); Sodium Level 139 mmol/L (136-145)
[2023-04-01] MEDS: Clopidogrel Bisulfate 75 MG Tablet PO (09:19)
[2023-04-01] MEDS: Ferrous Sulfate 325 MG Tablet PO (09:19)
[2023-04-01] MEDS: Ceftriaxone 1 GM/50 ML BAG IV (09:20)
[2023-04-01] MEDS: 0.9% Normal Saline (1000mL) 1,000 ML 75 ML IV (09:22)
--- NOTE | 2023-04-01 10:40 | CASEMGMT ---
RN RYAN Face to Face with patient for initial transition planning/care coordination assessment. RN CM introduced self and role at [facility]. Patient lying in bed, alert and oriented. Patient willing to participate in assessment and is able to answer all questions appropriately. Care providers, pharmacy, and demographics verified. Patient wishes to discharge home, denies need for home health at this time. Patient states he has no further needs or concerns at this time. CM to follow for discharge planning needs that may arise. PCP: Alec Specialists: AMARILIS vascular and oncologist Preferred Pharmacy: [facility] Hanh Insurance: Marian OROPEZA Prescription Benefit: yes Living Will/HPOA: yes, Lilibeth Gomez LNOK: , daughter Living Arrangements: Patient lives with in a single story home with 1 step to enter. Patient states he is independent at home. Transportation: self, DME/HHC: Patient has cane, walker, nebulizer, pulse ox at home. Patient has had HHC in the past but does not recall agency. No previous SNF Disposition Plan: Patient to discharge home with family support and follow-up plans in place. Will monitor for home oxygen. Anabell PINEDO, RN, CM
[2023-04-01] MEDS: Azithromycin 500 MG in Dextrose 5%-Water (250mL Bag) 250 ML 250 MG IV (10:59)
[2023-04-01 13:21] LABS: Ferritin 256 ng/mL (26-388); Iron 11 ug/dL (65-175); Iron Binding Capacity,Total 202 ug/dL (250-450); PERCENT IRON SATURATION 5.4 % (15.0-55.0)
[2023-04-01 13:22] LABS: Vitamin B12 825 pg/mL (211-911)
--- NOTE | 2023-04-01 14:44 | DCINST_ITS ---
Discharge Instructions Diet Discharge Diet: No restrictions Activity Discharge Activity: Return to Normal Activity Weight Bearing Status: Full weight bearing Follow Up Care Test Results: Test results from this visit will be discussed in further detail at your follow- up appointment, if applicable. Discharge Plan Admission Admit Date/Time: 03/31/23 08:50 Primary Reason for Your Visit: left sided pneumonia Attending Provider: Juan Diego Cote Primary Care Provider: Lamonte Michael Instructions Additional Instructions / Restrictions: I would recommend you take 100mg-250 mg of vitamin C with each dose of oral iron to help in its absorption, be sure to increase your iron tablets to 1 twice a day Discharge Orders/Prescriptions Prescriptions: New levofloxacin 750 mg tablet 750 mg PO DAILY Qty: 8 0RF Rx Instructions: start 04/02/23 Continued Xarelto 20 MG tablet 20 mg PO DAILY Patient Comments: blood thinner acetaminophen [Tylenol] 325 MG tablet 650 mg PO Q6H PRN PRN (Reason: Non-cardiac pain (mod-severe)) 0RF atorvastatin 40 mg tablet 40 mg PO DAILY Patient Comments: TAKE 1 TABLET BY MOUTH EVERY DAY clopidogrel 75 mg tablet 75 mg PO DAILY Patient Comments: TAKE 1 TABLET BY MOUTH EVERY DAY cyanocobalamin (vitamin B-12) .ROUTE Changed ferrous sulfate 325 MG tablet 325 mg PO BIDCM Qty: 1 0RF Referrals / Follow Up: Lamonte Michael DO [Primary Care Provider] - See Referral Note (In 2 weeks, you will need a repeat chest x-ray performed to make sure your pneumonia has resolved, you will also need your CBC rechecked to check your blood count) Disposition Disposition (needs filled in before D/C Order can be placed): Home, Self Care
--- NOTE | 2023-04-01 14:49 | CASEMGMT ---
Patient has a Healthcare Power of Offal Worker and a Healthcare Living Will. Patient is aware they are not on file and to bring in copies. Patient's Lilibeth is patient's Healthcare Power of Offal Worker. Chantelle BARNES
--- NOTE | 2023-04-01 14:51 | PCM.DC.SUM ---
Providers Date of Admission: 03/31/23 Date of Discharge: 04/01/23 Primary Care Physician: Dr. Lamonte Michael DO Reason For Visit: COMMUNITY ACQUIRED PNEUMONIA LEFT LUNG Diagnosis Discharge Diagnosis (1) Community acquired pneumonia: Status: Acute Code(s): J18.9 - Pneumonia, unspecified organism Plan 1. Left-sided community-acquired pneumonia-patient was admitted to PCU, he will remain on IV Zithromax and Rocephin, sputum culture was ordered, urine antigens for strep and Legionella were ordered, respiratory panel was ordered. #2 hypoxia secondary to #1-pulse ox will be monitored, patient will receive aerosol treatments #3 chronic obstructive pulmonary disease-patient will be given aerosol treatments, pulse ox will be monitored, complicates care, medical course, recovery, and prognosis #4 peripheral vascular disease-patient will remain on Plavix and Xarelto #5 history of stomach cancer-patient had his stomach resected 3 years ago for stomach cancer, he is not currently under treatment, complicates care, medical course, recovery, and prognosis #6 chronic iron deficiency anemia due to gastric resection Total clinical time spent by myself addressing patient's medical issues, reviewing all of his data, and collaborating with patient's care team: 55 minutes Medications at Discharge Home Medications rivaroxaban 20 mg tablet (Xarelto) 20 mg PO DAILY blood thinner 05/04/17 acetaminophen 325 mg tablet (Tylenol) 650 mg (2 x 325 mg) PO Q6H PRN PRN Non-cardiac pain (mod-severe) 08/12/18 atorvastatin 40 mg tablet 40 mg PO DAILY 01/04/23 clopidogrel 75 mg tablet 75 mg PO DAILY 01/04/23 cyanocobalamin (vitamin B-12) .ROUTE 03/31/23 ferrous sulfate 325 mg (65 mg iron) tablet 325 mg PO BIDCM iron supplement #1 TAB 04/01/23 levofloxacin 750 mg tablet 750 mg PO DAILY #8 tabs 04/01/23 Hospital Course Operations None Procedures None Summary of Care Provided Minutes Spent on Discharge: 32 Hospital Course: 67 year-old white male was seen in the emergency room at [facility] with complaints of shortness of breath and chilling. Work-up in the emergency room included a chest x-ray which showed a left lower lobe infiltrate suggestive of pneumonia. Patient required supplemental oxygen in the emergency room to maintain his pulse ox above 90%. Patient was admitted to PCU for community-acquired pneumonia, he was treated with IV Zithromax and Rocephin, patient improved faster than expected and on 04/01/2023, patient's oxygen was weaned off and he felt improved. Repeat lab obtained on that day was noted to show a drop in the patient's hemoglobin to 9, patient had a history of gastric resection in the past and had been anemic in the past, iron studies were obtained which showed the patient to be low on iron, his B12 level was normal. Initially I had considered administering Venofer to the patient while he was hospitalized but he had his transportation coming and he did not want to wait for the infusion. Patient was taking ferrous sulfate at home 1/day, I instructed him to increase it to 1 twice a day. Patient states he had constipation when he took 1 3 times a day. On 04/01/2023, patient was seen and examined: On examination he appeared in good health and spirits. Vital signs as documented. Skin warm and dry and without overt rashes. Neck without JVD, neck was supple, trachea midline, thyroid was normal. Lungs-there are faint inspiratory rales at the left lung base noted, normal air movement was noted. Heart exam notable for regular rhythm, normal sounds and absence of murmurs, rubs or gallops. Abdomen unremarkable and without evidence of organomegaly, masses, or abdominal aortic enlargement. Bowel sounds are present, abdomen is not distended. Extremities nonedematous, no cyanosis was noted, no clubbing was noted. Neuro: Cranial nerves II through XII are grossly intact, no focal motor deficits were noted, sensation to light touch and pinprick intact, motor exam 5/5 throughout. Psych: Patient is alert and oriented x3, he does not appear anxious or depressed, he does not appear agitated. Patient was felt to be stable for discharge on 04/01/2023. Weight / BMI Weight Weight: 57.47 kg Body Mass Index (BMI) 19.3 ABG / Lab / Microbiology Data 04/01/23 06:25 04/01/23 06:25 Laboratory: Laboratory Results - last 24 hr 04/01/23 06:25: WBC 9.0, RBC 2.57 L, Hgb 9.0 L, Hct 27.5 L, MCV 107.0 H, MCH 35.0 H, MCHC 32.7, RDW Std Deviation 57.8 H, RDW Coeff of Mariella 14.6, Plt Count 106 L, MPV 11.1, Immature Gran % (Auto) 1.100 H, Neut % (Auto) 81.9 H, Lymph % (Auto) 11.1 L, Petroleum % (Auto) 5.0, Eos % (Auto) 0.6, Baso % (Auto) 0.3, Absolute Neuts (auto) 7.4, Absolute Lymphs (auto) 1.00, Nucleated RBC % 0, Differential Comment , Sodium 139, Potassium 3.5, Chloride 112 H, Carbon Dioxide 24.0, Anion Gap 3 L, BUN 15, Creatinine 0.87, Estim Creat Clear Calc 65.14, Est GFR (MDRD) Af Amer 112, Est GFR (MDRD) Non-Af 92, BUN/Creatinine Ratio 17.2, Glucose 79, Calcium 7.3 L, Iron 11 L, TIBC 202 L, Iron Saturation 5.4 L, Ferritin 256, Total Bilirubin 0.40, AST 16, ALT 11 L, Alkaline Phosphatase 40 L, Total Protein 5.4 L, Albumin 2.0 L, Globulin 3.4, Albumin/Globulin Ratio 0.6 L, Vitamin B12 825 Microbiology: Microbiology 03/31/23 11:57 Sputum, Expectorated/Coughed Gram Stain - Final 03/31/23 11:10 Mucosa - Nasopharyngeal Respiratory Panel (PCR) - Final 03/31/23 11:57 Urine, Clean Catch Legionella Antigen - Final 03/31/23 11:57 Urine, Clean Catch Streptococcus pneumoniae Antigen (M - Final 03/31/23 07:40 Nasal Secretion SARS-CoV-2 & FLU Antigen (Rapid) - Final 03/31/23 07:28 Stool Stool Occult Blood (ROMAN) - Final D/C Instructions Discharge Diet: No restrictions Weight Bearing Status: Full weight bearing Meaningful Use Info Meaningful Use Diagnoses (Choose all that apply): None applicable Discharge Plan Admission Admit Date/Time: 03/31/23 08:50 Primary Reason for Your Visit: left sided pneumonia Attending Provider: Juan Diego Cote Primary Care Provider: Lamonte Michael Instructions Additional Instructions / Restrictions: I would recommend you take 100mg-250 mg of vitamin C with each dose of oral iron to help in its absorption, be sure to increase your iron tablets to 1 twice a day Discharge Orders/Prescriptions Prescriptions: New levofloxacin 750 mg tablet 750 mg PO DAILY Qty: 8 0RF Rx Instructions: start 04/02/23 Continued Xarelto 20 MG tablet 20 mg PO DAILY Patient Comments: blood thinner acetaminophen [Tylenol] 325 MG tablet 650 mg PO Q6H PRN PRN (Reason: Non-cardiac pain (mod-severe)) 0RF atorvastatin 40 mg tablet 40 mg PO DAILY Patient Comments: TAKE 1 TABLET BY MOUTH EVERY DAY clopidogrel 75 mg tablet 75 mg PO DAILY Patient Comments: TAKE 1 TABLET BY MOUTH EVERY DAY cyanocobalamin (vitamin B-12) .ROUTE Changed ferrous sulfate 325 MG tablet 325 mg PO BIDCM Qty: 1 0RF Referrals / Follow Up: Lamonte Michael DO [Primary Care Provider] - See Referral Note (In 2 weeks, you will need a repeat chest x-ray performed to make sure your pneumonia has resolved, you will also need your CBC rechecked to check your blood count) Disposition Disposition (needs filled in before D/C Order can be placed): Home, Self Care Charges/Coding Visit Charges Inpatient E&M: 57006 Disch Hosp >30min
--- NOTE | 2023-04-01 15:12 | NURSING ---
[address] Cote, ok for pt to take iron pills at home instead of having iron infusion. Pt notified and agreeable.
== END 2023-04-01 15:47 | disposition home or self-care (01) | DRG 871 ==
LOC: ED 09:01 → PCU 09:10
PROVIDERS: Admitting Provider Internal Medicine; Emergency Provider Emergency Medicine; PCP Student in an Organized Health Care Education/Training Program; Visit Provider Internal Medicine
DX: A41.9 Sepsis, unspecified organism (principal); J18.9 Pneumonia, unspecified organism; J44.0 Chronic obstructive pulmonary disease with (acute) lower respiratory infection; I73.9 Peripheral vascular disease, unspecified; D50.9 Iron deficiency anemia, unspecified; F17.210 Nicotine dependence, cigarettes, uncomplicated; I95.9 Hypotension, unspecified; Z11.52 Encounter for screening for COVID-19; R09.02 Hypoxemia; Z79.01 Long term (current) use of anticoagulants; Z79.02 Long term (current) use of antithrombotics/antiplatelets; Z79.899 Other long term (current) drug therapy; Z86.718 Personal history of other venous thrombosis and embolism; Z85.028 Personal history of other malignant neoplasm of stomach
CPT/HCPCS: 36415; 36600; 71045; 80053; 82274; 82607; 82728; 82803; 83540; 83550; 83605; 85025; 85610; 85730; 86850; 86900; 86901; 87040; 87070; 87205; 87428; 87449; 87633; 93005; 94640; 97162; 97166; 99252; 99285; 99406; J7030; A4216; G0463; J0696

== ENCOUNTER 2023-07-09 08:11 | Inpatient (IN) | payer MEDICARE, BC, SELFPAY ==
[2023-07-09] VITALS (14 sets, daily range): BP systolic 90–132; BP diastolic 51–86; PULSE 79–120; RESP 16–22; TEMP 36.5–37.3; O2SAT 86–99; BMI 19.5; BMI 19.3
--- NOTE | 2023-07-09 08:24 | EKG12_ITS ---
Test Reason : CP Blood Pressure : / mmHG Vent. Rate : 116 BPM Atrial Rate : 116 BPM P-R Int : 164 ms QRS Dur : 090 ms QT Int : 318 ms P-R-T Axes : 078 086 080 degrees QTc Int : 442 ms Sinus tachycardia Septal infarct (cited on or before 31-MAR-2023) Abnormal ECG Confirmed by Ezra Perry ([id number]), associate entertainment editor TYSON BOOKER ([id number]) on 07/12/2023 2:12:33 PM Referred By: JESUS Confirmed By:Ezra Perry
[2023-07-09] MEDS: 0.9% Normal Saline (1000mL) 1,000 ML 999 ML IV ×2 (08:35→09:48)
[2023-07-09 08:37] LABS: Hematocrit 28.5 % (40-54); Hemoglobin 9.2 g/dL (13.0-16.5); Mean Corp Hgb Conc 32.3 g/dL (32-36); Mean Corpuscular Hgb 33.5 pg (27.0-32.0); Mean Corpuscular Volume 103.6 fL (80-94); Mean Platelet Vol. 10.4 fl (6.2-12.0); POSITIVE MORPHOLOGY YES; Platelet Count 242 K/mm3 (150-450); RBC Distribution Width CV 15.5 % (11.6-14.6); RBC Distribution Width SD 55.4 fl (35.1-43.9); Red Blood Count 2.75 M/mm3 (4.6-6.2); White Blood Count 13.7 K/mm3 (4.4-11.0)
--- NOTE | 2023-07-09 08:43 | EDS_ITS ---
HPI History of Present Illness Chief Complaint: Shortness of Breath Narrative Narrative: 67-year-old male with history of COPD, DVT on Xarelto, GI bleed, PAD, pneumonia presenting with shortness of breath. Patient states that he has been relatively short of breath since April when he was diagnosed with pneumonia and was hospitalized here at [facility]. Patient states he was on IV antibiotics and sent home with antibiotics but never really recovered. He started to feel better but then got worse again. Patient states he saw Dr. Lamonte Michael on about 14 June and was put on a 10-day supply of Augmentin and azithromycin. Patient states started to feel better and then was worse again. Patient reports that over the last 3 days he has had some left-sided chest pain which he describes as an ache. Patient states that he really does not have pain on the right side but after he was told his pneumonia was on his last x-ray on the . Patient has never had a fever throughout illness. He is eating okay and states he is eating very healthy things like fish, vegetables. He still continues to smoke half pack of cigarettes per day. He states he hardly ever drinks any water. He states some days he will have a couple coffee in the morning and a Coke Zero in the evening. When I asked him to estimate how much water he drinks on a daily basis he states Zero patient is making urine. He denies abdominal pain, constipation, diarrhea. Denies black or bloody stools. Patient does state that over the last several days he has been having episodes of lightheadedness which come and go. He describes as nonvertiginous. Does report that last night he got up to go to the restroom and felt like he was getting a lot landed on his bed. He states still lasted a couple seconds and he was able to get up although it was difficult. [facility] Medical History (Updated 07/09/23 @ 11:[address] Valeriano Yanes MD) Community acquired pneumonia PVD (peripheral vascular disease) Sepsis Stomach cancer Throat cancer Home Medications rivaroxaban 20 mg tablet (Xarelto) 20 mg PO DAILY blood thinner 05/04/17 [History Last Taken 07/08/23] acetaminophen 325 mg tablet (Tylenol) 650 mg (2 x 325 mg) PO Q6H PRN PRN Non- cardiac pain (mod-severe) 08/12/18 [Rx Last Taken 11/18/18] atorvastatin 40 mg tablet 40 mg PO DAILY 01/04/23 [History Last Taken 07/08/23] clopidogrel 75 mg tablet 75 mg PO DAILY 01/04/23 [History Last Taken 07/08/23] cyanocobalamin (vitamin B-12) 1 tab PO DAILY Suppliment 03/31/23 [History Last Taken 07/08/23] ferrous sulfate 325 mg (65 mg iron) tablet 325 mg PO BIDCM iron supplement #1 TAB 04/01/23 [Rx Last Taken 07/08/23] multivit with [id number] 18 mg iron-800 mcg-150 mg tablet (Vitamin D3 Complete) 1 tab PO DAILY 07/09/23 [History Last Taken Unknown] Allergy/AdvReac Type Severity Reaction Status Date / Time lisinopril AdvReac PASSED Verified 03/31/23 06:50 OUT Surgical History History of cholecystectomy Social History (Updated 03/31/23 @ 10:27 by Carmen Dean) household members: spouse Smoking Status: Current every day smoker tobacco type: cigarettes EXAM Physical Exam Const Vital Signs: 07/09/23 08:13 07/09/23 08:13 07/09/23 08:13 Temperature 99.2 F H Temperature Source Temporal Pulse Rate 119 H Respiratory Rate 22 H Respiratory Effort Short of Breath Accessory Muscle Use Respiratory Pattern Tachypnea Blood Pressure 90/60 Blood Pressure Mean 70 Pulse Ox 92 Oxygen Delivery Method Nasal Cannula Nasal Cannula Oxygen Flow Rate (L/min) 2 2 07/09/23 08:21 07/09/23 08:24 07/09/23 08:52 Temperature 99.2 F H Temperature Source Temporal Pulse Rate 120 H 106 H Respiratory Rate 19 H 21 H Respiratory Effort Respiratory Pattern Blood Pressure 90/60 98/79 Blood Pressure Mean 70 85 Pulse Ox 92 86 89 Oxygen Delivery Method Nasal Cannula Room Air Room Air Oxygen Flow Rate (L/min) 2 07/09/23 08:32 07/09/23 09:21 07/09/23 10:18 Temperature 98.7 F 98.7 F Temperature Source Temporal Oral Pulse Rate 102 H 102 H Respiratory Rate 16 16 Respiratory Effort Respiratory Pattern Blood Pressure 111/52 L 111/52 L Blood Pressure Mean 71 71 Pulse Ox 96 98 Oxygen Delivery Method Nasal Cannula Room Air Room Air Oxygen Flow Rate (L/min) 2 Positive well nourished General Appearance ED: NAD; Negative for pallor HEENT Reports moist mucous membranes Eyes PERRL and EOMs intact bilaterally Neck no lymphadenopathy and supple Resp Resp Narrative: Tachypneic. No accessory muscle use. Auscultation: rhonchi left upper and left lower Cardio regular rhythm Rate: tachycardic GI non-tender Neuro oriented x3 and CN's II-XII intact bilaterally Sensorium / Orientation: alert Motor Exam: strength 5/5 throughout Psych mental status grossly normal Skin no wounds General Skin Exam: Negative for jaundice or pallor MDM MDM MDM Narrative Medical decision making narrative: Patient presenting with weakness, dyspnea, chest pain on the left, syncope. Differential includes but is not limited to ACS, pneumonia, pneumothorax, muscle strain, costochondritis, dysrhythmia, COVID, influenza, RSV, other viral etiology, dehydration, anemia, electro abnormalities. Considered PE however patient is anticoagulated on Xarelto. Also considered dissection of the aorta however is not having any significant pain and it does not feel like ripping or tearing. Given that the patient is tachycardic, tachypneic, hypoxic down to 86% and his blood pressure on arrival was 90/60 septic workup was pursued. Patient was pancultured. CBC shows leukocytosis of 13.7. Hemoglobin 9.2 with near baseline. Platelets are up to 42 and therefore normal. PT/INR unremarkable. Renal function and electrolytes normal. Lactic acid slightly elevated at 2.1. LFTs are normal. Urinalysis negative for infection. Chest x-ray on my interpretation shows left-sided pneumonia and possible lung nodule in the left lung. Radiology interprets this and agrees. Recommendation was for CT follow- up and a CT was obtained today and shows groundglass opacities and edema is consistent with pneumonia in the left lung. There is also a couple of right- sided lung nodules (see below) patient also has stable aortic aneurysm. Patient treated with vancomycin and Zosyn due to recent admission. Blood pressure is improved after 2 L of he is currently 100/51. Patient was admitted in stable condition. Impression: 1. Pneumonia 2. Sepsis 3. Hypoxic respiratory failure 4. Lung nodules 5. History of aortic aneurysm Lab Data Attestation: I reviewed the patient's lab results. Labs: Laboratory Results - last 24 hr 07/09/23 07/09/23 08:18 08:49 WBC 13.7 H RBC 2.75 L Hgb 9.2 L Hct 28.5 L MCV 103.6 H MCH 33.5 H MCHC 32.3 RDW Std Deviation 55.4 H RDW Coeff of Mariella 15.5 H Plt Count 242 MPV 10.4 Immature Gran % (Auto) CURRICULUM COACH Neut % (Auto) CURRICULUM COACH Lymph % (Auto) CURRICULUM COACH Smith % (Auto) CURRICULUM COACH Eos % (Auto) CURRICULUM COACH Baso % (Auto) CURRICULUM COACH Absolute Neuts (auto) 11.2 H Absolute Lymphs (auto) 2.33 Total Counted 100 Neutrophils % (Manual) 72 H Band Neutrophils % 10 H Lymphocytes % (Manual) 17 L Monocytes % (Manual) 1 Nucleated RBC % CURRICULUM COACH Diff Path Review May foll Platelet Estimate ADEQUATE RBC Morphology N CHROM Anisocytosis 1+ PT 13.5 INR 1.0 APTT 29.1 Sodium 143 Potassium 3.8 Chloride 111 H Carbon Dioxide 23.0 Anion Gap 9 BUN 15 Creatinine 1.00 Estim Creat Clear Calc 57.49 Est GFR (MDRD) Af Amer 95 Est GFR (MDRD) Non-Af 79 BUN/Creatinine Ratio 15.0 Glucose 79 Lactic Acid 2.1 H* Calcium 8.4 L Total Bilirubin 0.60 AST 23 ALT 14 L Alkaline Phosphatase 61 Troponin I High Sens 8 Total Protein 6.6 Albumin 2.8 L Globulin 3.8 Albumin/Globulin Ratio 0.7 L Urine Color Yellow Urine Clarity Sl. Cloudy Urine pH 5.0 Ur Specific Carlton 1.025 Urine Protein 30 H Urine Glucose (UA) Normal Urine Ketones 5 H Urine Occult Blood Negative Urine Nitrite Negative Urine Bilirubin 1 H Urine Urobilinogen 1 H Ur Leukocyte Esterase 25 H Urine RBC 0 SEEN Urine WBC 0-5 SEEN Ur Squamous Epith Cells 0-5 SEEN Urine Bacteria 1+ Urine Mucus 0 SEEN Radiography Diagnostic Testing: Clinical Impression(s) from Imaging Studies Chest X-Ray 07/09/23 08:45 IMPRESSION: Patchy opacity within the left midlung may reflect pneumonia, atelectasis and/or edema. Indeterminate 1.3 cm nodular opacity within the left upper lung, may be secondary to a confluence of shadows however cannot exclude a pulmonary nodule, consider chest CT for further characterization. Electronically Signed: Becca Anguiano MD at 8:57 EST , Chest CT 07/09/23 08:59 IMPRESSION: Patchy and groundglass opacities within the left lung, most pronounced within the left upper lobe concerning for pneumonia and/or edema. 10 mm and 15 mm nodular opacities within the right lung, recommend follow-up chest CT in 3 months, PET/CT for further or tissue sampling characterization. Stable 5.4 x 4.4 cm infrarenal abdominal aortic aneurysm, recommend vascular surgery consultation. Atherosclerosis. Electronically Signed: Becca Anguiano MD at 10:04 EST , Discharge Plan Disposition Disposition: Acute Care [facility] Discharge Date/Time: 07/09/23 11:02
--- NOTE | 2023-07-09 08:45 | RAD_ITS ---
INDICATION: dyspnea EXAMINATION/TECHNIQUE: X-RAY - XR Chest 1 View COMPARISON: March 31, 2023 FINDINGS: LINES/DEVICES: None. LUNGS: There is a patchy opacity within the left midlung. There is an indeterminate 1.3 cm nodular opacity within the left upper lung. No pneumothorax. MEDIASTINUM AND CARDIOVASCULAR STRUCTURES: Cardiac silhouette not enlarged. Central airways and mediastinal contour are unremarkable. BONES AND SOFT TISSUES: Unremarkable. RAD/Chest 1 View (Portable) IMPRESSION: Patchy opacity within the left midlung may reflect pneumonia, atelectasis and/or edema. Indeterminate 1.3 cm nodular opacity within the left upper lung, may be secondary to a confluence of shadows however cannot exclude a pulmonary nodule, consider chest CT for further characterization. Electronically Signed: Becca Anguiano MD at 8:57 EST ,
[2023-07-09 08:50] LABS: Differential Indicated MANUAL DIFF
[2023-07-09 08:52] LABS: Lymphocyte 17 % (19-41); Monocyte 1 % (0-10); Neutrophil-Band 10 % (0-5); Neutrophil-Segmented 72 % (47-70); Total Cells Counted 100 (MANUAL DIFF)
[2023-07-09 08:53] LABS: Anisocytosis 1+; Platelet Estimate ADEQUATE (ADEQ); Red Cell Morphology N CHROM NORMAL (NORM C&C); Scan Smear per Review Criteria MANUAL DIFF
[2023-07-09 08:53] LABS: Mucous, Urine 0 SEEN /hpf (<or=2+); Red Blood Cells-Urine 0 SEEN /hpf (0-5)
[2023-07-09 08:54] LABS: ALB/GLOB Ratio 0.7 RATIO (0.9-2.4); AST(SGOT) 23 U/L (15-37); Absolute Lymphocyte Count 2.33 X10^3/uL (0.83-4.51); Absolute Neutrophil Count 11.2 X10^3/uL (2.0-7.7); Alanine Aminotransfer ALT/SGPT 14 U/L (16-61); Albumin, Serum 2.8 g/dL (3.2-5.0); Alkaline Phosphatase 61 U/L (45-117); Anion Gap 9 (5-15); BUN 15 mg/dL (7-18); Calcium,Total 8.4 mg/dL (8.5-10.1); Chloride 111 mmol/L (98-107); EST Glomerular Filtration Rate 79 mL/min (>60); Est Glom Filt Rate - Afr Amer 95 mL/min (>60); Estimated Creatinine Clearance 57.49 ml/min; Globulin 3.8 g/dL (2.2-4.2); Glucose 79 mg/dL (74-106); Potassium 3.8 mmol/L (3.5-5.1); Protein, Total 6.6 g/dL (6.4-8.2); Sodium Level 143 mmol/L (136-145); Troponin-I HS 8 pg/mL (3.0-78.0)
[2023-07-09 08:55] LABS: Color, Urine Yellow (Yellow); Glucose, Dipstick Normal (Normal); Ketone-Dipstick 5 mg/dl (Negative); Leukocyte Esterase-Dipstick 25 /ul (Negative); Nitrite-Dipstick Negative (Negative); Occult Blood-Urine Negative /ul (Negative); Protein-Dipstick 30 mg/dl (Negative); Specific Gravity, Urine 1.025 (1.002-1.030); Urine Bilirubin Dipstick 1 mg/dL (Negative); Urine Clarity Sl. Cloudy (Clear); Urine Urobilinogen 1 mg/dl (Normal)
[2023-07-09 08:56] LABS: Prothrombin Time (Protime)PT. 13.5 SECONDS (11.7-14.9)
[2023-07-09 08:57] LABS: Partial Thromboplast Time 29.1 Seconds (24.1-36.2)
[2023-07-09 08:59] LABS: Lactic Acid 2.1 mmol/L (0.4-1.9)
--- NOTE | 2023-07-09 08:59 | CT_ITS ---
INDICATION: abnormal chest xray EXAMINATION: CT CHEST WITH CONTRAST - CT Chest W/ Contrast Injection TECHNIQUE: Helically acquired images were obtained of the chest following IV contrast. A radiation dose optimization technique was used for this scan. IV Contrast dosage and agent: 100 cc of [id number]-300 RADIATION DOSAGE (If Supplied By Facility): CTDIvol = ( 9.88 ) mGy, DLP = ( 290.41 ) mGycm COMPARISON: CT of the abdomen and pelvis dated January 04, 2023 FINDINGS: LUNGS, PLEURA AND LARGE AIRWAYS: There are bilateral emphysematous changes. Within the left upper and to lesser extent the left lower lobe there are groundglass and patchy opacities. Within the right upper lobe there is a somewhat spiculated 10 mm nodular opacity. Within the right lower lobe there is a 15 mm subpleural ill-defined nodular opacity as well. THYROID: No thyroid lesions. HEART AND PERICARDIUM: Heart size is normal. No pericardial effusion. There are coronary artery calcifications. VESSELS: Thoracic aorta is not dilated. There are peripheral calcifications of the thoracic aorta. No aortic dissection. No obvious central pulmonary embolism although this study was not performed with the pulmonary embolism protocol. MEDIASTINUM AND CALEB: There are borderline enlarged mediastinal lymph nodes. Esophagus is unremarkable. There is a hiatal hernia. There appear to be postsurgical changes of the gastroesophageal junction/proximal stomach. UPPER ABDOMEN: No the limited images of the upper abdomen demonstrate a stable partially visualized 5.4 x 4.4 cm infrarenal abdominal aortic aneurysm. BONES: No suspicious lytic or blastic abnormality. CT/Chest WITH Contrast IMPRESSION: Patchy and groundglass opacities within the left lung, most pronounced within the left upper lobe concerning for pneumonia and/or edema. 10 mm and 15 mm nodular opacities within the right lung, recommend follow-up chest CT in 3 months, PET/CT for further or tissue sampling characterization. Stable 5.4 x 4.4 cm infrarenal abdominal aortic aneurysm, recommend vascular surgery consultation. Atherosclerosis. Electronically Signed: Becca Anguiano MD at 10:04 EST ,
[2023-07-09 09:07] LABS: Bacteria 1+ /hpf (None Seen); Squamous Epithelial Cells - UA 0-5 SEEN /hpf (0-5); White Blood Cells 0-5 SEEN /hpf (0-5)
[2023-07-09] MEDS: Piperacil/Tazobactam 3.375 GM in 0.9% Normal Saline (50mL MB+) 50 ML IV ×2 (09:48→15:56)
--- NOTE | 2023-07-09 10:34 | HP.PCM.HOS_ITS ---
HPI - General General Date of Admission: 07/09/23 Date of Service: 07/09/23 Chief Complaint: Shortness of breath HPI Narrative ALFREDA RAMIREZ, is a 67 M who presents presented with shortness of breath. Patient has significant past medical history including gastric carcinoma status post gastrectomy, history of throat cancer treated with cryotherapy who presented with shortness of breath. Patient symptoms have been ongoing for the past couple of days. In addition to the shortness of breath patient also did experience cough as well as subjective fever and chills. Patient was on admission in March for pneumonia. And was also seen mid June by his primary care physician treated with Augmentin for pneumonia. He elected to pres ent to the emergency department due to worsening symptoms. An assessment of sepsis secondary to pneumonia made patient admitted to a monitored bed for subsequent management [facility] Medical History (Updated 07/09/23 @ 11:[address] Valeriano Yanes MD) Community acquired pneumonia PVD (peripheral vascular disease) Sepsis Stomach cancer Throat cancer Home Medications rivaroxaban 20 mg tablet (Xarelto) 20 mg PO DAILY blood thinner 05/04/17 [History Last Taken 07/08/23] acetaminophen 325 mg tablet (Tylenol) 650 mg (2 x 325 mg) PO Q6H PRN PRN Non- cardiac pain (mod-severe) 08/12/18 [Rx Last Taken 11/18/18] atorvastatin 40 mg tablet 40 mg PO DAILY 01/04/23 [History Last Taken 07/08/23] clopidogrel 75 mg tablet 75 mg PO DAILY 01/04/23 [History Last Taken 07/08/23] cyanocobalamin (vitamin B-12) 1 tab PO DAILY Suppliment 03/31/23 [History Last Taken 07/08/23] ferrous sulfate 325 mg (65 mg iron) tablet 325 mg PO BIDCM iron supplement #1 TAB 04/01/23 [Rx Last Taken 07/08/23] multivit with [id number]-PS-#190herbal 18 mg iron-800 mcg-150 mg tablet (Vitamin D3 Complete) 1 tab PO DAILY 07/09/23 [History Last Taken Unknown] Allergy/AdvReac Type Severity Reaction Status Date / Time lisinopril AdvReac PASSED Verified 03/31/23 06:50 OUT Surgical History History of cholecystectomy Social History (Updated 03/31/23 @ 10:27 by Carmen Dean) household members: spouse Smoking Status: Current every day smoker tobacco type: cigarettes ROS ROS Narrative GENERAL: fever, chills, HEENT: denies headache, sinus congestion, RESPIRATORY: cough, shortness of breath, dyspnea on exertion CARDIAC: denies chest pain, palpitations, orthopnea, GASTROINTESTINAL: denies abdominal pain, nausea, GENITOURINARY: denies dysuria, urgency, frequency, EXTREMITY: denies swelling MUSCULOSKELETAL: denies current joint pain or tenderness NEUROLOGIC: denies focal numbness, weakness, tingling HEMATOLOGIC: denies easy bruising and/or hemorrhage INTEGUMENT: denies rashes PSYCHIATRIC: denies suicidal or homicidal ideation Vital Signs Vital Signs Vital Signs: 07/09/23 08:13 07/09/23 08:13 07/09/23 08:13 Temperature 99.2 F H Temperature Source Temporal Pulse Rate 119 H Respiratory Rate 22 H Respiratory Effort Short of Breath Accessory Muscle Use Respiratory Pattern Tachypnea Blood Pressure 90/60 Blood Pressure Mean 70 Pulse Ox 92 Oxygen Delivery Method Nasal Cannula Nasal Cannula Oxygen Flow Rate (L/min) 2 2 07/09/23 08:21 07/09/23 08:24 07/09/23 08:52 Temperature 99.2 F H Temperature Source Temporal Pulse Rate 120 H 106 H Respiratory Rate 19 H 21 H Respiratory Effort Respiratory Pattern Blood Pressure 90/60 98/79 Blood Pressure Mean 70 85 Pulse Ox 92 86 89 Oxygen Delivery Method Nasal Cannula Room Air Room Air Oxygen Flow Rate (L/min) 2 07/09/23 08:32 07/09/23 09:21 07/09/23 10:18 Temperature 98.7 F 98.7 F Temperature Source Temporal Oral Pulse Rate 102 H 102 H Respiratory Rate 16 16 Respiratory Effort Respiratory Pattern Blood Pressure 111/52 L 111/52 L Blood Pressure Mean 71 71 Pulse Ox 96 98 Oxygen Delivery Method Nasal Cannula Room Air Room Air Oxygen Flow Rate (L/min) 2 Weight Weight: 58.3 kg Body Mass Index (BMI) 19.5 Physical Exam Narrative GENERAL: cooperative HEENT: Atraumatic; normocephalic EYES; Anicteric, Normal Conjunctiva NECK; supple, normal thyroid, RESPIRATORY: Diminished to auscultation CARDIOVASCULAR: Regular S1 S2, GI: soft, normoactive bowel sounds, : No Renal angle tenderness; EXTREMITIES: No edema, no clubbing, MUSCULOSKELETAL: no muscle wasting NEURO: Awake; no lateralizing signs. SKIN: No Rash PSYCH; Flat affect Results Lab / Micro Data 07/09/23 08:18 07/09/23 08:18 Labs: Laboratory Results - last 24 hr 07/09/23 08:18: WBC 13.7 H, RBC 2.75 L, Hgb 9.2 L, Hct 28.5 L, MCV 103.6 H, MCH 33.5 H, MCHC 32.3, RDW Std Deviation 55.4 H, RDW Coeff of Mariella 15.5 H, Plt Count 242, MPV 10.4, Immature Gran % (Auto) JOY LOADING MACHINE OPERATOR, Neut % (Auto) JOY LOADING MACHINE OPERATOR, Lymph % (Auto) JOY LOADING MACHINE OPERATOR, [place] % (Auto) JOY LOADING MACHINE OPERATOR, Eos % (Auto) JOY LOADING MACHINE OPERATOR, Baso % (Auto) JOY LOADING MACHINE OPERATOR, Absolute Neuts (auto) 11.2 H, Absolute Lymphs (auto) 2.33, Total Counted 100, Neutrophils % (Manual) 72 H, Band Neutrophils % 10 H, Lymphocytes % (Manual) 17 L, Monocytes % (Manual) 1, Nucleated RBC % JOY LOADING MACHINE OPERATOR, Diff Path Review August, Platelet Estimate ADEQUATE, RBC Morphology N CHROM, Anisocytosis 1+, PT 13.5, INR 1.0, APTT 29.1, Sodium 143, Potassium 3.8, Chloride 111 H, Carbon Dioxide 23.0, Anion Gap 9, BUN 15, Creatinine 1.00, Estim Creat Clear Calc 57.49, Est GFR (MDRD) Af Amer 95, Est GFR (MDRD) Non-Af 79, BUN/Creatinine Ratio 15.0, Glucose 79, Lactic Acid 2.1 H*, Calcium 8.4 L, Total Bilirubin 0.60, AST 23, ALT 14 L, Alkaline Phosphatase 61, Troponin I High Sens 8, Total Protein 6.6, Albumin 2.8 L, Globulin 3.8, Albumin/Globulin Ratio 0.7 L 07/09/23 08:49: Urine Color Yellow, Urine Clarity Sl. Cloudy, Urine pH 5.0, Ur Specific [place] 1.025, Urine Protein 30 H, Urine Glucose (UA) Normal, Urine Ketones 5 H, Urine Occult Blood Negative, Urine Nitrite Negative, Urine Bilirubin 1 H, Urine Urobilinogen 1 H, Ur Leukocyte Esterase 25 H, Urine RBC 0 SEEN, Urine WBC 0-5 SEEN, Ur Squamous Epith Cells 0-5 SEEN, Urine Bacteria 1+, Urine Mucus 0 SEEN Micro: Microbiology 07/09/23 08:34 Mucosa - Nasopharyngeal SARS-CoV-2, Influenza & RSV (PCR) - Final Imaging Radiology Impression Chest X-Ray 07/09/23 08:45 IMPRESSION: Patchy opacity within the left midlung may reflect pneumonia, atelectasis and/or edema. Indeterminate 1.3 cm nodular opacity within the left upper lung, may be secondary to a confluence of shadows however cannot exclude a pulmonary nodule, consider chest CT for further characterization. Electronically Signed: Becca Anguiano MD at 8:57 EST , Chest CT 07/09/23 08:59 IMPRESSION: Patchy and groundglass opacities within the left lung, most pronounced within the left upper lobe concerning for pneumonia and/or edema. 10 mm and 15 mm nodular opacities within the right lung, recommend follow-up chest CT in 3 months, PET/CT for further or tissue sampling characterization. Stable 5.4 x 4.4 cm infrarenal abdominal aortic aneurysm, recommend vascular surgery consultation. Atherosclerosis. Electronically Signed: Becca Anguiano MD at 10:04 EST , Assessment & Plan Assessment/Plan (1) Sepsis: (2) Community acquired pneumonia: PLAN: Plan Patient is a 67-year-old gentleman presented with progressive shortness of breath imaging studies demonstrated patchy and groundglass opacities consistent with pneumonia admitted to a monitored bed for further management 1. Sepsis ? Evidenced by presence of an infection, 2 SIRS criteria as well as endorgan dysfunction lactic acidosis. Patient sepsis is secondary to pneumonia treatment initiated per protocol with aggressive IV fluid resuscitation, antibiotics after cultures have been obtained. Response to therapy being monitored with serial lactic acid levels 2. Pneumonia ? With suspected atypical versus MDR ? CT of the chest obtained demonstrated patchy and groundglass opacities within the left lung, most pronounced within the left upper lobe concerning for pneumonia and/or edema. Management as discussed above 3. Nodular densities ? CT did show 10 mm and 15 mm nodular opacities within the right lung, consult placed to pulmonary medicine Case discussed with Dr. Sandra 5. Stable 5.4 x 4.4 cm infrarenal abdominal aortic aneurysm, Patient has known history of peripheral arterial disease. Consultation was placed to vascular surgery as recommended by the radiologist 5. Peripheral arterial disease ? With history of bypass. Patient is on guideline directed medical therapy including systemic anticoagulation as well as antiplatelet therapy 6. Gastric CA ? Status post gastrectomy 7. Throat cancer ? Treated with cryotherapy 8. Dyslipidemia -Patient is on statin therapy, continued at home dose 9. DVT prophylaxis ? Already on Xarelto Time spent in the patient's overall evaluation,decision-making process, review of diagnostic data, adjustment of management, discussion with other providers, nursing nursing and ancillary staff involved in patient's care documentation, 78 Minutes Advance planning; did discuss with the patient and family regarding advanced directives as well as CODE STATUS. Did explain the various scenarios involved ( FULL CODE, DNR CCA, DNR CCA with no intubation, and DNR CC and what each meant) patient elected to be DNR CCA no intubation. Order was placed. Time spent on discussion 18 minutes. Charges/Coding Visit Charges Inpatient E&M: 25444 Init Hosp L3 Procedures Hospitalists Procedures: 69171 Advncd Care Plan 30 Min
[2023-07-09] MEDS: Vancomycin HCl 1,500 MG in 0.9% Normal Saline (500mL Bag) 500 ML 250 MG IV (10:43)
--- NOTE | 2023-07-09 11:23 | CON.PCM.CC_ITS ---
Assessment & Plan Assessment/Plan (1) SOB (shortness of breath): PLAN: Plan RECOMMENDATIONS: 1. Supplemental oxygen, if needed, to maintain saturations at or above 90%. 2. Continue antibiotics. 3. Start scheduled bronchodilator therapy and steroids. 4. Encourage incentive spirometer use and mobilize patient as tolerated. 5. Speech therapy evaluation. 6. Outpatient pulmonary follow-up after discharge. 7. Recommend follow-up CT scan in 6 to 8 weeks following completion of an tibiotics. IMPRESSIONS: 1. Shortness of breath and hypoxemia The patient has an extensive tobacco abuse history, but has never been formally diagnosed with COPD. His chest imaging demonstrated findings concerning for bilateral emphysematous changes along with left upper lobe predominant groundglass changes and several other indeterminate nodular opacities. At this time, I recommend continuing antibiotics as ordered. I am going to place the patient on scheduled bronchodilator therapy along with corticosteroids, over concerns that he has underlying obstructive lung disease. Ultimately, the patient needs to follow-up in the pulmonary medicine clinic after discharge. I recommend that he complete pulmonary function studies, with plans to repeat a CT scan in 6 to 8 weeks following completion of his antibiotic treatment course. In addition, given the patient's reported concerns over aspiration, will obtain speech therapy evaluation today as well. Supplemental oxygen can be continued, if needed, to maintain saturations at or above 90%. 2. History of chronic tobacco dependency/history of throat CA and gastric carcinoma status post gastrectomy/history of DVT on Xarelto Complicates care, management, recovery and prognosis. Continue home medications as indicated. Tobacco cessation counseling was provided. Management as noted above. This note was generated with [employer] dictation software. It may contain incorrect words, spelling, and punctuation that were not noted in checking the note before signing. HPI Consult Data Date of Consult: 07/09/23 HPI Narrative Reason for Consultation: Pneumonia HPI Narrative: The patient is a 67-year-old male, with a history as outlined below, who presented to the emergency department on July 08 with progressive shortness of breath. The patient has an extensive tobacco abuse history, reporting that he has smoked upwards of 1.5 packs of cigarettes per day x 50+ years. Nevertheless, he has cut back to smoking 0.5 packs of cigarettes per day. He has never been formally evaluated by a wool tamper, nor has he ever completed pulmonary function studies. He does not utilize supplemental oxygen at his baseline. The patient is not currently on any maintenance inhalers. The patient reported that in April he was diagnosed with pneumonia, and since that time, he has been struggling with his breathing. The patient's medical history is also significant for hyperlipidemia and prior DVT on Xarelto. He also reported a remote history of throat and stomach cancer. 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 In addition to his personal smoking history, he did grow up in a smoking household. The patient reported that his appetite and weight have been stable. On presentation to the emergency department, the patient was noted to have a low -grade fever and was mildly tachycardic and tachypneic. Laboratory evaluation revealed an elevated white blood cell count of 14,000. Coagulation profile was within normal limits. Chemistry profile was unremarkable. Lactate was mildly elevated at 2.1. CT chest with contrast was completed in the emergency department which demonstrated bilateral emphysematous changes along with left upper lobe predominant ground glass opacities along with a nodular density in the right upper lobe and 15 mm subpleural nodular opacity in the right lower lobe. In the emergency department, the patient received supplemental IV fluids and was placed on antimicrobials. He was admitted to the progressive care unit for further management. [facility] Medical History (Updated 07/09/23 @ 11:[address] Marc Sandra, ) Community acquired pneumonia History of gastrectomy PVD (peripheral vascular disease) Sepsis Stomach cancer Throat cancer Home Medications rivaroxaban 20 mg tablet (Xarelto) 20 mg PO DAILY blood thinner 05/04/17 [History Last Taken 07/08/23] acetaminophen 325 mg tablet (Tylenol) 650 mg (2 x 325 mg) PO Q6H PRN PRN Non- cardiac pain (mod-severe) 08/12/18 [Rx Last Taken 11/18/18] atorvastatin 40 mg tablet 40 mg PO DAILY 01/04/23 [History Last Taken 07/08/23] clopidogrel 75 mg tablet 75 mg PO DAILY 01/04/23 [History Last Taken 07/08/23] cyanocobalamin (vitamin B-12) 1 tab PO DAILY Suppliment 03/31/23 [History Last Taken 07/08/23] ferrous sulfate 325 mg (65 mg iron) tablet 325 mg PO BIDCM iron supplement #1 TAB 04/01/23 [Rx Last Taken 07/08/23] multivit with [id number]-[id number]-CG-#190herbal 18 mg iron-800 mcg-150 mg tablet (Vitamin D3 Complete) 1 tab PO DAILY 07/09/23 [History Last Taken Unknown] Allergy/AdvReac Type Severity Reaction Status Date / Time lisinopril AdvReac PASSED Verified 03/31/23 06:50 OUT Surgical History History of cholecystectomy Social History (Updated 03/31/23 @ 10:27 by Carmen Dean) household members: spouse Smoking Status: Current every day smoker tobacco type: cigarettes ROS ROS Narrative 10 systems reviewed with pertinent positives as noted in the HPI above. Physical Exam Const alert and no apparent distress General Appearance: cooperative HEENT normocephalic and head/scalp atraumatic Eyes PERRL, EOMs intact bilaterally and conjunctivae normal Neck supple General: trachea midline Chest inspection of chest normal Resp normal respiratory effort Auscultation: diminished lung sounds Cardio regular rate and regular rhythm GI normal to inspection, nondistended, normoactive bowel sounds Extremity no clubbing, cyanosis or edema Skin no rashes or lesions noted Neuro CN's II-XII intact bilaterally, moves all extremities and no focal motor deficits Psych cooperative and affect normal Lab / Micro Data 07/09/23 08:18 07/09/23 08:18 Labs: Laboratory Results - last 24 hr 07/09/23 08:18: WBC 13.7 H, RBC 2.75 L, Hgb 9.2 L, Hct 28.5 L, MCV 103.6 H, MCH 33.5 H, MCHC 32.3, RDW Std Deviation 55.4 H, RDW Coeff of Mariella 15.5 H, Plt Count 242, MPV 10.4, Immature Gran % (Auto) MULTIMEDIA SERVICES MANAGER, Neut % (Auto) MULTIMEDIA SERVICES MANAGER, Lymph % (Auto) MULTIMEDIA SERVICES MANAGER, [place] % (Auto) MULTIMEDIA SERVICES MANAGER, Eos % (Auto) MULTIMEDIA SERVICES MANAGER, Baso % (Auto) MULTIMEDIA SERVICES MANAGER, Absolute Neuts (auto) 11.2 H, Absolute Lymphs (auto) 2.33, Total Counted 100, Neutrophils % (Manual) 72 H, Band Neutrophils % 10 H, Lymphocytes % (Manual) 17 L, Monocytes % (Manual) 1, Nucleated RBC % MULTIMEDIA SERVICES MANAGER, Diff Path Review May foll, Platelet Estimate ADEQUATE, RBC Morphology N CHROM, Anisocytosis 1+, PT 13.5, INR 1.0, APTT 29.1, Sodium 143, Potassium 3.8, Chloride 111 H, Carbon Dioxide 23.0, Anion Gap 9, BUN 15, Creatinine 1.00, Estim Creat Clear Calc 57.49, Est GFR (MDRD) Af Amer 95, Est GFR (MDRD) Non-Af 79, BUN/Creatinine Ratio 15.0, Glucose 79, Lactic Acid 2.1 H*, Calcium 8.4 L, Total Bilirubin 0.60, AST 23, ALT 14 L, Alkaline Phosphatase 61, Troponin I High Sens 8, Total Protein 6.6, Albumin 2.8 L, Globulin 3.8, Albumin/Globulin Ratio 0.7 L 07/09/23 08:49: Urine Color Yellow, Urine Clarity Sl. Cloudy, Urine pH 5.0, Ur Specific [place] 1.025, Urine Protein 30 H, Urine Glucose (UA) Normal, Urine Ketones 5 H, Urine Occult Blood Negative, Urine Nitrite Negative, Urine Bilirubin 1 H, Urine Urobilinogen 1 H, Ur Leukocyte Esterase 25 H, Urine RBC 0 SEEN, Urine WBC 0-5 SEEN, Ur Squamous Epith Cells 0-5 SEEN, Urine Bacteria 1+, Urine Mucus 0 SEEN Micro: Microbiology 07/09/23 08:34 Mucosa - Nasopharyngeal SARS-CoV-2, Influenza & RSV (PCR) - Final Imaging Radiology Impression Chest X-Ray 07/09/23 08:45 IMPRESSION: Patchy opacity within the left midlung may reflect pneumonia, atelectasis and/or edema. Indeterminate 1.3 cm nodular opacity within the left upper lung, may be secondary to a confluence of shadows however cannot exclude a pulmonary nodule, consider chest CT for further characterization. Electronically Signed: Becca Anguiano MD at 8:57 EST , Chest CT 07/09/23 08:59 IMPRESSION: Patchy and groundglass opacities within the left lung, most pronounced within the left upper lobe concerning for pneumonia and/or edema. 10 mm and 15 mm nodular opacities within the right lung, recommend follow-up chest CT in 3 months, PET/CT for further or tissue sampling characterization. Stable 5.4 x 4.4 cm infrarenal abdominal aortic aneurysm, recommend vascular surgery consultation. Atherosclerosis. Electronically Signed: Becca Anguiano MD at 10:04 EST , Charges/Coding Visit Charges Inpatient E&M: 94637 Init Hosp L3
[2023-07-09 11:39] LABS: Lactic Acid 2.2 mmol/L (0.4-1.9)
--- NOTE | 2023-07-09 11:56 | PHA.PHARE_ITS ---
Consult Antibiotic Management Pharmacy has been consulted to manage selected antibiotic: Vancomycin Type of Intervention Type of Consult: New start Suspected Infection Suspected Infection: Sepsis and Pneumonia Prior Doses of Antibiotics Prior Doses of Antibiotics Received/Current Regimen: the patient received vanc 1500mg IV x1 in E.R. starting at 10:43 today Labs Labs: Sodium 143 mmol/L (136-145) 07/09/23 08:18 Potassium 3.8 mmol/L (3.5-5.1) 07/09/23 08:18 Chloride 111 mmol/L (98-107) H 07/09/23 08:18 Carbon Dioxide 23.0 mmol/L (21.0-32.0) 07/09/23 08:18 Anion Gap 9 (5-15) 07/09/23 08:18 BUN 15 mg/dL (7-18) 07/09/23 08:18 Creatinine 1.00 mg/dL (0.70-1.30) 07/09/23 08:18 Est GFR (MDRD) Af Amer 95 mL/min (>60) 07/09/23 08:18 Est GFR (MDRD) Non-Af 79 mL/min (>60) 07/09/23 08:18 BUN/Creatinine Ratio 15.0 RATIO (10-20) 07/09/23 08:18 Glucose 79 mg/dL (74-106) 07/09/23 08:18 Microbiology Microbiology: Microbiology 07/09/23 08:49 Urine, Clean Catch Legionella Antigen - Final 07/09/23 08:49 Urine, Clean Catch Streptococcus pneumoniae Antigen (M - Final 07/09/23 08:34 Mucosa - Nasopharyngeal SARS-CoV-2, Influenza & RSV (PCR) - Final Dosing Weight Weight used for dosin.7 kg Estimated Creatinine Clearance Estimated Creatinine Clearance: 57.5ml/min Goal Trough Goal Trough: 15-20 mcg/mL Pharmacy Plan for Drug Dosing Pharmacy Plan for Drug Dosing: Starting 12 hours after the E.R. dose, will continue with vanc 500mg IV q12h per [facility] dosing protocol. Will check a trough before the 4th total dose. Pharmacy Service will continue to monitor and adjust dosing as required. Follow-Up Labs Follow-Up Labs: Trough: Vancomycin Date/Time Labs Ordered Labs to be done on [date and time ordered]: 07/10/23 22:30
[2023-07-09] MEDS: Lactated Ringers 1,000 ML 125 ML IV ×2 (12:03→20:03)
[2023-07-09 12:35] LABS: Reflex Lactate? Y
[2023-07-09] MEDS: levoFLOXacin IV 750 MG/150 ML BAG 100 MG IV (13:01)
[2023-07-09 13:34] LABS: M R Staph aureus DNA By PCR Negative (Negative); Probe Check PASS; Specimen Processing Control PASS
--- NOTE | 2023-07-09 13:34 | SEPSISATNOTE ---
Sepsis Attestation Sepsis Attestation: Agree w/Sepsis Date exam was performed: 07/09/23 Time exam was performed: 10:43 Possible Source of Sepsis: Pulmonary Sepsis Organ Dysfunction Criteria Present: Lactic Acid > 2 mmol/L Fluid Resuscitation Fluid Resuscitation ordered: 30 ml/kg fluid bolus ordered Amount of fluid ordered: 2,000 Sepsis Note Date exam was performed: 07/09/23 Time exam was performed: 13:35 Sepsis Attestation: Sepsis re-evaluation was performed Response to fluids: Fluid responsive hypotension
[2023-07-09] MEDS: Ipratropium/Albuterol Sulfate 3 ML AMPUL.NEB INHALATION ×3 (14:23→23:10)
[2023-07-09 15:02] LABS: Reflex Lactate? Y
[2023-07-09] MEDS: Rivaroxaban 20 MG Tablet PO (17:09)
[2023-07-09] MEDS: Ferrous Sulfate 325 MG Tablet PO (17:09)
[2023-07-09] MEDS: Glucerna Shake 120 ML LIQUID PO (21:28)
[2023-07-09] MEDS: Atorvastatin Calcium 40 MG Tablet PO (21:28)
[2023-07-09] MEDS: Vancomycin IV 500 MG/100 ML BAG 100 MG IV (22:47)
[2023-07-10] VITALS (9 sets, daily range): BP systolic 105–127; BP diastolic 67–73; PULSE 68–110; RESP 16–18; TEMP 36.6–36.9; O2SAT 94–98
[2023-07-10] MEDS: 0.9% Saline Lock 10 ML Syringe IV ×2 (01:24→06:34)
[2023-07-10] MEDS: Lactated Ringers 1,000 ML 125 ML IV ×2 (05:33→17:33)
[2023-07-10 05:49] LABS: Absolute Lymphocyte Count 0.48 X10^3/uL (0.83-4.51); Absolute Neutrophil Count 17.8 X10^3/uL (2.0-7.7); Basophil# 0.03 X10^3/uL; Basophil% 0.2 % (0-1); Eosinophil# 0.04 X10^3/uL; Eosinophils% 0.2 % (0-5); Hematocrit 23.9 % (40-54); Lymphocyte # 0.48 X10^3/ul (0.83-4.51); Lymphocyte % 2.5 % (19-41); Mean Corp Hgb Conc 33.5 g/dL (32-36); Mean Corpuscular Hgb 34.8 pg (27.0-32.0); Mean Corpuscular Volume 103.9 fL (80-94); Mean Platelet Vol. 10.9 fl (6.2-12.0); Monocyte# 0.34 X10^3/uL; Monocyte% 1.8 % (0-10); NRBC Flagged by Analyzer 0 % (0-5); Neutrophil # 17.77 X10^3/uL (2.7-7.7); POSITIVE DIFFERENTIAL YES; POSITIVE MORPHOLOGY YES; Platelet Count 182 K/mm3 (150-450); RBC Distribution Width CV 15.9 % (11.6-14.6); RBC Distribution Width SD 57.1 fl (35.1-43.9); White Blood Count 18.9 K/mm3 (4.4-11.0)
[2023-07-10 06:03] LABS: Differential Indicated SCAN CRITERIA MET
[2023-07-10 06:11] LABS: Anion Gap 7 (5-15); BUN 18 mg/dL (7-18); BUN/Creat Ratio 19.3 RATIO (10-20); Calcium,Total 8.1 mg/dL (8.5-10.1); Chloride 111 mmol/L (98-107); Creatinine, Serum 0.93 mg/dL (0.70-1.30); EST Glomerular Filtration Rate 85 mL/min (>60); Est Glom Filt Rate - Afr Amer 103 mL/min (>60); Estimated Creatinine Clearance 61.18 ml/min; Glucose 167 mg/dL (74-106); Magnesium 1.3 mg/dL (1.6-2.6); Potassium 3.3 mmol/L (3.5-5.1); Sodium Level 140 mmol/L (136-145)
[2023-07-10] MEDS: Piperacil/Tazobactam 3.375 GM in 0.9% Normal Saline (50mL MB+) 50 ML IV ×3 (06:41→22:21)
[2023-07-10 06:48] LABS: Differential Comment SCANNED
[2023-07-10] MEDS: Ipratropium/Albuterol Sulfate 3 ML AMPUL.NEB INHALATION ×4 (07:00→19:14)
--- NOTE | 2023-07-10 07:55 | PN.HOSP_ITS ---
Reason for Visit Reason for Visit: Diagnoses Sepsis, unspecified organism (07/09/23) Pneumonia, unspecified organism (07/09/23) Shortness of breath (07/09/23) Subjective Subjective Patient is a 67-year-old gentleman presented with progressive shortness of breath imaging studies demonstrated patchy and groundglass opacities consistent with pneumonia admitted to a monitored bed for further management Objective Data Objective Data Vital Signs: Vital Signs Temp Pulse Resp BP Pulse Ox O2 Del Method O2 Flow Rate 98.3 F 82 16 113/73 96 Room Air 2 07/10/23 03:15 07/10/23 07:00 07/10/23 07:00 07/10/23 03:15 07/10/23 07:00 07/10/23 07:00 07/09/23 08:32 Oxygen Flow Rate (L/min) 2 Oxygen Delivery Method Room Air Weight: 57.7 kg Body Mass Index (BMI) 19.3 Intake & Output: Intake and Output for Last 24 Hours 07/08/23 07/09/23 07/10/23 23:59 23:59 23:59 Intake Total 4030 / 4030 1000.00 / 1000.00 Output Total 700 / 850 550 / 550 Balance 3330 / 3180 450.00 / 450.00 Lab / Micro Data 07/10/23 05:15 07/10/23 05:15 Labs: Laboratory Results - last 24 hr 07/09/23 08:18: WBC 13.7 H, RBC 2.75 L, Hgb 9.2 L, Hct 28.5 L, MCV 103.6 H, MCH 33.5 H, MCHC 32.3, RDW Std Deviation 55.4 H, RDW Coeff of Mariella 15.5 H, Plt Count 242, MPV 10.4, Immature Gran % (Auto) [employer] SPECIALIST, Neut % (Auto) [employer]ILD[employer] PRE[employer]ION SPECIALIST, Lymph % (Auto) [employer] PRE[employer]ION SPECIALIST, [place] % (Auto) [employer] PRE[employer]ION SPECIALIST, Eos % (Auto) WILD[employer] PRE[employer]ION SPECIALIST, Baso % (Auto) [employer] PRE[employer]ION SPECIALIST, Absolute Neuts (auto) 11.2 H, Absolute Lymphs (auto) 2.33, Total Counted 100, Neutrophils % (Manual) 72 H, Band Neutrophils % 10 H, Lymphocytes % (Manual) 17 L, Monocytes % (Manual) 1, Nucleated RBC % [employer]ILD[employer] PRE[employer]ION SPECIALIST, Diff Path Review May , Platelet Estimate ADEQUATE, RBC Morphology N CHROM, Anisocytosis 1+, PT 13.5, INR 1.0, APTT 29.1, Sodium 143, Potassium 3.8, Chloride 111 H, Carbon Dioxide 23.0, Anion Gap 9, BUN 15, Creatinine 1.00, Estim Creat Clear Calc 57.49, Est GFR (MDRD) Af Amer 95, Est GFR (MDRD) Non-Af 79, BUN/Creatinine Ratio 15.0, Glucose 79, Lactic Acid 2.1 H*, Calcium 8.4 L, Total Bilirubin 0.60, AST 23, ALT 14 L, Alkaline Phosphatase 61, Troponin I High Sens 8, Total Protein 6.6, Albumin 2.8 L, Globulin 3.8, Albumin/Globulin Ratio 0.7 L 07/09/23 08:49: Urine Color Yellow, Urine Clarity Sl. Cloudy, Urine pH 5.0, Ur Specific Farrell 1.025, Urine Protein 30 H, Urine Glucose (UA) Normal, Urine Ketones 5 H, Urine Occult Blood Negative, Urine Nitrite Negative, Urine Bilirubin 1 H, Urine Urobilinogen 1 H, Ur Leukocyte Esterase 25 H, Urine RBC 0 SEEN, Urine WBC 0-5 SEEN, Ur Squamous Epith Cells 0-5 SEEN, Urine Bacteria 1+, Urine Mucus 0 SEEN 07/09/23 11:01: Lactic Acid 2.2 H* 07/09/23 12:00: MRSA (PCR) Negative 07/09/23 12:45: Lactic Acid 3.0 H* 07/09/23 15:15: Lactic Acid Cancelled 07/10/23 05:15: WBC 18.9 H, RBC 2.30 L, Hgb 8.0 L, Hct 23.9 L, MCV 103.9 H, MCH 34.8 H, MCHC 33.5, RDW Std Deviation 57.1 H, RDW Coeff of Mariella 15.9 H, Plt Count 182, MPV 10.9, Immature Gran % (Auto) 1.300 H, Neut % (Auto) 94.0 H, Lymph % (Auto) 2.5 L, [place] % (Auto) 1.8, Eos % (Auto) 0.2, Baso % (Auto) 0.2, Absolute Neuts (auto) 17.8 H, Absolute Lymphs (auto) 0.48 L, Nucleated RBC % 0, Differential Comment SCANNED, Sodium 140, Potassium 3.3 L, Chloride 111 H, Carbon Dioxide 22.0, Anion Gap 7, BUN 18, Creatinine 0.93, Estim Creat Clear Calc 61.18, Est GFR (MDRD) Af Amer 103, Est GFR (MDRD) Non-Af 85, BUN/Creatinine Ratio 19.3, Glucose 167 H, Calcium 8.1 L, Phosphorus 2.0 L, Magnesium 1.3 L Micro: Microbiology 07/09/23 11:55 Mucosa - Nasopharyngeal Coronavirus COVID-19 PCR - Final 07/09/23 11:55 Mucosa - Nasopharyngeal Respiratory Panel (PCR) - Final 07/09/23 12:00 Mucosa - Throat Streptococcus pyogenes (PCR) - Final 07/09/23 08:49 Urine, Clean Catch Legionella Antigen - Final 07/09/23 08:49 Urine, Clean Catch Streptococcus pneumoniae Antigen (M - Final 07/09/23 08:34 Mucosa - Nasopharyngeal SARS-CoV-2, Influenza & RSV (PCR) - Final Radiography Diagnostic Testing: Radiology Impression Chest X-Ray 07/09/23 08:45 IMPRESSION: Patchy opacity within the left midlung may reflect pneumonia, atelectasis and/or edema. Indeterminate 1.3 cm nodular opacity within the left upper lung, may be secondary to a confluence of shadows however cannot exclude a pulmonary nodule, consider chest CT for further characterization. Electronically Signed: Becca Anguiano MD at 8:57 EST Reading Location ID and State: [address] [place] [address] Tel , Service support , Chest CT 07/09/23 08:59 IMPRESSION: Patchy and groundglass opacities within the left lung, most pronounced within the left upper lobe concerning for pneumonia and/or edema. 10 mm and 15 mm nodular opacities within the right lung, recommend follow-up chest CT in 3 months, PET/CT for further or tissue sampling characterization. Stable 5.4 x 4.4 cm infrarenal abdominal aortic aneurysm, recommend vascular surgery consultation. Atherosclerosis. Electronically Signed: Becca Anguiano MD at 10:04 EST , Physical Exam Narrative GENERAL: cooperative HEENT: Atraumatic; normocephalic EYES; Anicteric, Normal Conjunctiva NECK; supple, normal thyroid, RESPIRATORY: Diminished to auscultation CARDIOVASCULAR: Regular S1 S2, GI: soft, normoactive bowel sounds, : No Renal angle tenderness; EXTREMITIES: No edema, no clubbing, MUSCULOSKELETAL: no muscle wasting NEURO: Awake; no lateralizing signs. SKIN: No Rash PSYCH; Flat affect Assessment & Plan Assessment/Plan (1) Sepsis: (2) Community acquired pneumonia: PLAN: Plan Patient is a 67-year-old gentleman presented with progressive shortness of breath imaging studies demonstrated patchy and groundglass opacities consistent with pneumonia admitted to a monitored bed for further management 1. Sepsis ? Evidenced by presence of an infection, 2 SIRS criteria as well as endorgan dysfunction lactic acidosis. Patient sepsis is secondary to pneumonia treatment initiated per protocol with aggressive IV fluid resuscitation, antibiotics after cultures have been obtained. Response to therapy being monitored with serial lactic acid levels ? 07/10/2023; patient WBC count remains elevated did continue with current a ntibiotic therapy pending culture result 2. Pneumonia ? With suspected atypical versus MDR ? CT of the chest obtained demonstrated patchy and groundglass opacities within the left lung, most pronounced within the left upper lobe concerning for pneumonia and/or edema. Management as discussed above ? 07/10/2023 management as discussed above 3. Nodular densities ? CT did show 10 mm and 15 mm nodular opacities within the right lung, consult placed to pulmonary medicine Case discussed with Dr. Sandra ? 07/10/2023; patient was seen in consultation by Dr. Sandra plan is for patient to follow-up as outpatient with the office 5. Stable 5.4 x 4.4 cm infrarenal abdominal aortic aneurysm, Patient has known history of peripheral arterial disease. Plan is for patient to follow-up with vascular surgery as outpatient 5. Peripheral arterial disease ? With history of bypass. Patient is on guideline directed medical therapy including systemic anticoagulation as well as antiplatelet therapy 6. Gastric CA ? Status post gastrectomy 7. Throat cancer ? Treated with cryotherapy 8. Dyslipidemia -Patient is on statin therapy, continued at home dose 9. DVT prophylaxis ? Already on Xarelto 10. Hypokalemia -Corrected per protocol Time spent in the patient's overall evaluation,decision-making process, review of diagnostic data, adjustment of management, discussion with other providers, nursing nursing and ancillary staff involved in patient's care documentation, 52 min Charges/Coding Visit Charges Inpatient E&M: 57215 Subs Hosp L3
[2023-07-10] MEDS: levoFLOXacin IV 750 MG/150 ML BAG 100 MG IV (09:34)
[2023-07-10] MEDS: Potassium Chloride Oral Tablet 20 MEQ 40 MEQ PO (09:34)
[2023-07-10] MEDS: Ferrous Sulfate 325 MG Tablet PO ×2 (09:34→17:33)
[2023-07-10] MEDS: Clopidogrel Bisulfate 75 MG Tablet PO (09:34)
[2023-07-10] MEDS: Vancomycin IV 500 MG/100 ML BAG 100 MG IV (11:54)
--- NOTE | 2023-07-10 13:47 | CASEMGMT ---
RN CM Assessment: Face to Face with pt for initial transition planning/care coordination assessment. RN CM introduced self and role at [facility], pt voices understanding and consents to assessment. Pt is A&O x4, sitting in bed, and answers all questions appropriately at this time. Care providers, pharmacy, and demographics verified/updated. Admitting Dx: Sepsis secondary to PNA PCP: Dr. Michael Specialists: None Preferred Pharmacy: [facility] Insurance: Medicare A/B Prescription Benefit: yes LNOK: Spouse Lilibeth [phone] Living Arrangements: Pt lives at home with spouse. Single story home with 1 step to enter. Pt is independent at baseline. Pt reports he cannot stand or walk for long periods of time due to PAD but knows how to manage. Transportation: Pt drives self and denies concerns with transportation. DME:Nebulizer, shower seat HHC/SNF: None Pt states no concerns with going home at time of dc. Pt states no further concerns/needs. CM to follow. Advised pt to ask CM if any further question/concerns/needs arise, voices understanding. Pt Goal: Home Plan: Home Mabel Fonseca MSN, RN, CCM
[2023-07-10] MEDS: Rivaroxaban 20 MG Tablet PO (17:33)
[2023-07-10] MEDS: Magnesium Sulfate 2 GM in Dextrose 5%-Water (100mL Bag) 100 ML IV (20:41)
[2023-07-10] MEDS: Atorvastatin Calcium 40 MG Tablet PO (20:41)
[2023-07-10] MEDS: MELATONIN 3 MG TABLET PO (20:41)
[2023-07-10 23:00] LABS: Vancomycin, Trough Level 11.1 ug/mL (5.0-15.0)
--- NOTE | 2023-07-10 23:11 | PCM.RX.CS ---
Consult Antibiotic Management Pharmacy has been consulted to manage selected antibiotic: Vancomycin Type of Intervention Type of Consult: Follow-up Labs Labs: Sodium 140 mmol/L (136-145) 07/10/23 05:15 Potassium 3.3 mmol/L (3.5-5.1) L 07/10/23 05:15 Chloride 111 mmol/L (98-107) H 07/10/23 05:15 Carbon Dioxide 22.0 mmol/L (21.0-32.0) 07/10/23 05:15 Anion Gap 7 (5-15) 07/10/23 05:15 BUN 18 mg/dL (7-18) 07/10/23 05:15 Creatinine 0.93 mg/dL (0.70-1.30) 07/10/23 05:15 Est GFR (MDRD) Af Amer 103 mL/min (>60) 07/10/23 05:15 Est GFR (MDRD) Non-Af 85 mL/min (>60) 07/10/23 05:15 BUN/Creatinine Ratio 19.3 RATIO (10-20) 07/10/23 05:15 Glucose 167 mg/dL (74-106) H 07/10/23 05:15 Vancomycin Trough 11.1 ug/mL (5.0-15.0) 07/10/23 22:29 Microbiology Microbiology: Microbiology 07/09/23 08:49 Urine, Clean Catch Urine Culture - Preliminary Culture exhibits no growth. 07/09/23 11:55 Mucosa - Nasopharyngeal Coronavirus COVID-19 PCR - Final 07/09/23 11:55 Mucosa - Nasopharyngeal Respiratory Panel (PCR) - Final 07/09/23 12:00 Mucosa - Throat Streptococcus pyogenes (PCR) - Final 07/09/23 08:49 Urine, Clean Catch Legionella Antigen - Final 07/09/23 08:49 Urine, Clean Catch Streptococcus pneumoniae Antigen (M - Final 07/09/23 08:34 Mucosa - Nasopharyngeal SARS-CoV-2, Influenza & RSV (PCR) - Final Goal Trough Goal Trough: 15-20 mcg/mL Pharmacy Plan for Drug Dosing Pharmacy Plan for Drug Dosing: Pharmacy Service will continue to monitor and adjust dosing as required. TROUGH 11.1 @ 10.5 HRS. INCREASE TO 750MG Q12H AND FOLLOW UP TROUGH PRIOR TO 4TH DOSE Follow-Up Labs Follow-Up Labs: Trough: Vancomycin Date/Time Labs Ordered Labs to be done on [date and time ordered]: 07/11 @ 5719
[2023-07-10] MEDS: Vancomycin HCl 750 MG in 0.9% Normal Saline (250mL Bag) 250 ML 250 MG IV (23:13)
[2023-07-11] VITALS (7 sets, daily range): BP systolic 114–143; BP diastolic 69–87; PULSE 77–95; RESP 16–19; TEMP 36.3–36.9; O2SAT 93–94
[2023-07-11 05:08] LABS: Absolute Lymphocyte Count 0.37 X10^3/uL (0.83-4.51); Basophil# 0.02 X10^3/uL; Basophil% 0.1 % (0-1); Hematocrit 21.3 % (40-54); Hemoglobin 7.2 g/dL (13.0-16.5); Lymphocyte # 0.37 X10^3/ul (0.83-4.51); Lymphocyte % 1.8 % (19-41); Mean Corp Hgb Conc 33.8 g/dL (32-36); Mean Corpuscular Hgb 35.1 pg (27.0-32.0); Mean Corpuscular Volume 103.9 fL (80-94); Mean Platelet Vol. 10.9 fl (6.2-12.0); Monocyte% 2.4 % (0-10); NRBC Flagged by Analyzer 0.1 % (0-5); Neutrophil # 19.01 X10^3/uL (2.7-7.7); Neutrophil % 92.8 % (47-70); POSITIVE DIFFERENTIAL YES; Platelet Count 161 K/mm3 (150-450); RBC Distribution Width CV 16.4 % (11.6-14.6); RBC Distribution Width SD 59.9 fl (35.1-43.9); Red Blood Count 2.05 M/mm3 (4.6-6.2); White Blood Count 20.5 K/mm3 (4.4-11.0)
[2023-07-11 05:24] LABS: Anion Gap 7 (5-15); BUN 17 mg/dL (7-18); BUN/Creat Ratio 21.5 RATIO (10-20); Calcium,Total 8.1 mg/dL (8.5-10.1); Chloride 112 mmol/L (98-107); Creatinine, Serum 0.79 mg/dL (0.70-1.30); EST Glomerular Filtration Rate 103 mL/min (>60); Est Glom Filt Rate - Afr Amer 124 mL/min (>60); Estimated Creatinine Clearance 71.12 ml/min; Glucose 162 mg/dL (74-106); Magnesium 1.8 mg/dL (1.6-2.6); Potassium 3.9 mmol/L (3.5-5.1); Sodium Level 141 mmol/L (136-145)
[2023-07-11] MEDS: 0.9% Saline Lock 10 ML Syringe IV (06:06)
[2023-07-11] MEDS: Lactated Ringers 1,000 ML 125 ML IV ×3 (06:06→23:10)
[2023-07-11] MEDS: Piperacil/Tazobactam 3.375 GM in 0.9% Normal Saline (50mL MB+) 50 ML IV ×3 (06:06→20:31)
[2023-07-11] MEDS: Ipratropium/Albuterol Sulfate 3 ML AMPUL.NEB INHALATION ×4 (07:08→20:25)
[2023-07-11] MEDS: Ferrous Sulfate 325 MG Tablet PO ×2 (08:28→18:09)
--- NOTE | 2023-07-11 09:29 | PN.HOSP_ITS ---
Reason for Visit Reason for Visit: Diagnoses Sepsis, unspecified organism (07/09/23) Pneumonia, unspecified organism (07/09/23) Shortness of breath (07/09/23) Subjective Subjective Patient seen clinical condition improving however had significant drop in hemoglobin level Objective Data Objective Data Vital Signs: Vital Signs Temp Pulse Resp BP Pulse Ox O2 Del Method O2 Flow Rate 97.3 F L 95 16 127/79 H 94 Room Air 2 07/11/23 08:21 07/11/23 08:21 07/11/23 08:21 07/11/23 08:21 07/11/23 08:21 07/11/23 08:21 07/09/23 08:32 Oxygen Flow Rate (L/min) 2 Oxygen Delivery Method Room Air Weight: 57.7 kg Body Mass Index (BMI) 19.3 Intake & Output: Intake and Output for Last 24 Hours 07/09/23 07/10/23 07/12/23 23:59 23:59 00:59 Intake Total 4030 / 4030 2910.25 / 2910.25 837.92 / 837.92 Output Total 700 / 850 900 / 900 450 / 450 Balance 3330 / 3180 387.92 / 387.92 Lab / Micro Data 07/11/23 04:15 07/11/23 04:15 Labs: Laboratory Results - last 24 hr 07/10/23 22:29: Vancomycin Trough 11.1 07/11/23 04:15: WBC 20.5 H, RBC 2.05 L, Hgb 7.2 L, Hct 21.3 L, MCV 103.9 H, MCH 35.1 H, MCHC 33.8, RDW Std Deviation 59.9 H, RDW Coeff of Mariella 16.4 H, Plt Count 161, MPV 10.9, Immature Gran % (Auto) 2.900 H, Neut % (Auto) 92.8 H, Lymph % (Auto) 1.8 L, [place] % (Auto) 2.4, Eos % (Auto) 0.0, Baso % (Auto) 0.1, Absolute Neuts (auto) 19.0 H, Absolute Lymphs (auto) 0.37 L, Nucleated RBC % 0.1, Sodium 141, Potassium 3.9, Chloride 112 H, Carbon Dioxide 22.0, Anion Gap 7, BUN 17, Creatinine 0.79, Estim Creat Clear Calc 71.12, Est GFR (MDRD) Af Amer 124, Est GFR (MDRD) Non-Af 103, BUN/Creatinine Ratio 21.5 H, Glucose 162 H, Calcium 8.1 L , Magnesium 1.8 Micro: Microbiology 07/09/23 08:49 Urine, Clean Catch Urine Culture - Final Culture exhibits no growth. 07/09/23 11:55 Mucosa - Nasopharyngeal Coronavirus COVID-19 PCR - Final 07/09/23 11:55 Mucosa - Nasopharyngeal Respiratory Panel (PCR) - Final 07/09/23 12:00 Mucosa - Throat Streptococcus pyogenes (PCR) - Final 07/09/23 08:49 Urine, Clean Catch Legionella Antigen - Final 07/09/23 08:49 Urine, Clean Catch Streptococcus pneumoniae Antigen (M - Final 07/09/23 08:34 Mucosa - Nasopharyngeal SARS-CoV-2, Influenza & RSV (PCR) - Final Physical Exam Narrative GENERAL: cooperative HEENT: Atraumatic; normocephalic EYES; Anicteric, Normal Conjunctiva NECK; supple, normal thyroid, RESPIRATORY: Diminished to auscultation CARDIOVASCULAR: Regular S1 S2, GI: soft, normoactive bowel sounds, : No Renal angle tenderness; EXTREMITIES: No edema, no clubbing, MUSCULOSKELETAL: no muscle wasting NEURO: Awake; no lateralizing signs. SKIN: No Rash PSYCH; Flat affect Assessment & Plan Assessment/Plan (1) Sepsis: (2) Community acquired pneumonia: PLAN: Plan Patient is a 67-year-old gentleman presented with progressive shortness of breath imaging studies demonstrated patchy and groundglass opacities consistent with pneumonia admitted to a monitored bed for further management 1. Sepsis ? Evidenced by presence of an infection, 2 SIRS criteria as well as endorgan dysfunction lactic acidosis. Patient sepsis is secondary to pneumonia treatment initiated per protocol with aggressive IV fluid resuscitation, antibiotics after cultures have been obtained. Response to therapy being monitored with serial lactic acid levels ? 07/10/2023; patient WBC count remains elevated did continue with current antibiotic therapy pending culture result ? 07/11/2023; WBC count still remains elevated patient still has significant cough. Cultures pending. 2. Pneumonia ? With suspected atypical versus MDR. CT of the chest obtained demonstrated patchy and groundglass opacities within the left lung, most pronounced within the left upper lobe concerning for pneumonia and/or edema. Management as discussed above ? 07/10/2023 management as discussed above ? 07/11/2023 patient scheduled to undergo speech and swallow eval 3. Nodular densities ? CT did show 10 mm and 15 mm nodular opacities within the right lung, consult placed to pulmonary medicine Case discussed with Dr. Sandra ? 07/10/2023; patient was seen in consultation by Dr. Sandra plan is for patient to follow-up as outpatient with the office 5. Stable 5.4 x 4.4 cm infrarenal abdominal aortic aneurysm, Patient has known history of peripheral arterial disease. Plan is for patient to follow-up with vascular surgery as outpatient 5. Peripheral arterial disease ? With history of bypass. Patient is on guideline directed medical therapy including systemic anticoagulation as well as antiplatelet therapy 6. Gastric CA ? Status post gastrectomy 7. Throat cancer ? Treated with cryotherapy 8. Dyslipidemia -Patient is on statin therapy, continued at home dose 9. DVT prophylaxis ? Already on Xarelto 10. Hypokalemia -Corrected per protocol 11. Anemia ? Probably related to anemia of chronic disorder. Given with 2 g decrease in patient hemoglobin level since admission ordered iron studies as well as B12 levels (has history of gastrectomy -on B12 supplements) Time spent in the patient's overall evaluation,decision-making process, review of diagnostic data, adjustment of management, discussion with other providers, nursing nursing and ancillary staff involved in patient's care documentation, 50 min Charges/Coding Visit Charges Inpatient E&M: 72239 [facility] Hosp L3
[2023-07-11 09:57] LABS: Ferritin 384 ng/mL (26-388); Iron 25 ug/dL (65-175); Iron Binding Capacity,Total 149 ug/dL (250-450); PERCENT IRON SATURATION 16.8 % (15.0-55.0)
[2023-07-11] MEDS: Clopidogrel Bisulfate 75 MG Tablet PO (10:17)
[2023-07-11] MEDS: levoFLOXacin IV 750 MG/150 ML BAG 100 MG IV (10:17)
[2023-07-11] MEDS: Glucerna Shake 120 ML LIQUID PO (10:18)
[2023-07-11 10:39] LABS: Reticulocyte Count 3.63 % (0.5-1.5)
[2023-07-11] MEDS: Vancomycin HCl 750 MG in 0.9% Normal Saline (250mL Bag) 250 ML 250 MG IV ×2 (11:46→23:09)
[2023-07-11] MEDS: Rivaroxaban 20 MG Tablet PO (18:09)
[2023-07-11] MEDS: Atorvastatin Calcium 40 MG Tablet PO (20:31)
[2023-07-11] MEDS: MELATONIN 3 MG TABLET PO (20:34)
[2023-07-12] VITALS (9 sets, daily range): BP systolic 134–145; BP diastolic 83–89; PULSE 74–104; RESP 16–20; TEMP 36.2–36.9; O2SAT 90–96
--- NOTE | 2023-07-12 02:08 | PN.CC_ITS ---
Objective Data Objective Data Vital Signs: Vital Signs Last response Temperature 36.9 C 07/11/23 21:20 Temperature Source Temporal 07/11/23 21:20 Pulse Rate 95 07/11/23 21:20 Pulse Strength Weak (1+) 07/11/23 21:20 Respiratory Rate 18 07/11/23 21:20 Respiratory Effort Normal, Non-Labored 07/11/23 21:20 Respiratory Depth Normal 07/11/23 21:20 Respiratory Pattern Normal 07/11/23 21:20 Blood Pressure 143/87 H 07/11/23 21:20 Blood Pressure Mean 105 07/11/23 21:20 Blood Pressure Source Monitor 07/11/23 21:20 Blood Pressure Position Semi-Fowlers 07/11/23 21:20 Blood Pressure Location Right Arm 07/11/23 21:20 Pulse Ox 93 07/11/23 21:20 Oxygen Delivery Method Room Air 07/11/23 21:20 Oxygen Flow Rate (L/min) 2 07/09/23 08:32 I&O: I&O Last 24 Hours 07/11/23 07/11/23 07/12/23 11:59 23:59 11:59 Intake Total 2481.46 / 3369.38 254.17 / 254.17 Output Total 300 / 950 Balance 2181.46 / 2419.38 254.17 / 254.17 I&O: Total Stay 07/09/23 08:11 thru 07/12/23 00:10 Intake Total 97338.80 Output Total 2550 Balance 8013.80 Current Meds Ordered / Administered: Current meds ordered / Administered Generic Name Dose Route Start Last Admin Trade Name Francis PRN Reason Stop Dose Admin Acetaminophen 650 mg 07/09/23 11:08 Acetaminophen 325 Mg Tablet PO Q6H PRN PRN Non-cardiac pain (mod-severe) Al Hydroxide/Mg Hydroxide 30 ml 07/09/23 11:08 Mag Hydrox/Al Hydrox/Simeth 30 Ml Udc PO Q6H PRN PRN Gastric Burning Albuterol Sulfate 2.5 mg 07/09/23 11:08 Albuterol 2.5 Mg/3 Ml Vial.Neb. INHALATION Q2H PRN PRN SOB/Wheezing Albuterol/Ipratropium 3 ml 07/10/23 19:00 07/11/23 20:25 Ipratropium/Albuterol Sulfate 3 Ml Ampul.Neb INHALATION 3 ml Q4HWA.RT JOHN Administration Atorvastatin Calcium 40 mg 07/09/23 22:00 07/11/23 20:31 Atorvastatin Calcium 40 Mg Tablet PO 40 mg QHS JOHN Administration Clopidogrel Bisulfate 75 mg 07/10/23 10:00 07/11/23 10:17 Clopidogrel Bisulfate 75 Mg Tablet PO 75 mg DAILY JOHN Administration Ferrous Sulfate 325 mg 07/09/23 17:00 07/11/23 18:09 Ferrous Sulfate 325 Mg Tablet PO 325 mg BIDCM JOHN Administration Guaifenesin 20 ml 07/09/23 11:08 Guaifenesin 10 Ml Udc (200mg/10ml) PO Q4H PRN PRN COUGH Piperacillin Sod/Tazobactam 50 mls @ 12.5 mls/hr 07/09/23 14:00 07/11/23 23:57 Sod 3.375 gm/ Sodium Chloride IV 07/16/23 14:01 Infused Q8 JOHN Infusion Levofloxacin 750 mg in 150 mls @ 100 mls/hr 07/09/23 11:08 07/11/23 12:07 Levaquin Iv IV 07/16/23 11:09 Infused Q24 JOHN Infusion Vancomycin IV-PHARMACY TO DOSE 500 mls @ 250 mls/hr 07/09/23 11:08 1 each/ Sodium Chloride IV X1 PRN Rx to Dose Protocol Lactated Ringer's 1,000 mls @ 125 mls/hr 07/09/23 11:08 07/12/23 00:10 IV 125 mls/hr .Q8H JOHN Infusion Vancomycin HCl 750 mg/ Sodium 265 mls @ 250 mls/hr 07/10/23 23:00 07/12/23 00:10 Chloride IV Infused Q12H JOHN Infusion Melatonin 3 mg 07/09/23 11:08 07/11/23 20:34 Melatonin 3 Mg Tablet PO 3 mg QHS PRN PRN Administration INSOMNIA Methylprednisolone 40 mg 07/09/23 12:00 07/11/23 23:09 Methylprednisolone 40 Mg/Ml Vial IV 40 mg Q6 JOHN Administration Nitroglycerin 0.4 mg 07/09/23 11:08 Nitroglycerin (Inpatient Use) 0.4 Mg Tab.Subl SL Q5M PRN CARDIAC/CHEST PAIN Ondansetron HCl 4 mg 07/09/23 11:08 Ondansetron 4 Mg/2 Ml Vial IV Q8H PRN PRN NAUSEA/VOMITING Rivaroxaban 20 mg 07/09/23 17:00 07/11/23 18:09 Rivaroxaban 20 Mg Tablet PO 20 mg DINNER JOHN Administration Senna/Docusate Sodium 2 tablet 07/09/23 11:08 Senna/Docusate Sodium 1 Tablet PO BID PRN PRN Constipation Sodium Chloride 10 - 40 ml 07/09/23 11:30 07/11/23 06:06 0.9% Saline Lock 10 Ml Syringe IV 10 ml UD PRN Administration SALINE FLUSH Throat Lozenges 1 lozenge 07/09/23 11:08 Benzocaine/Menthol 1 Lozenge MUCOUS MEM Q2H PRN PRN SORE THROAT Vancomycin Protocol 1 lab 07/12/23 08:30 Vancomycin Trough/Random Due [facility] 07/12/23 12:30 [facility]ILY [facility] Lab / Micro Data 07/11/23 04:15 07/11/23 04:15 Labs: Laboratory Results - last 24 hr 07/11/23 04:15: WBC 20.5 H, RBC 2.05 L, Hgb 7.2 L, Hct 21.3 L, MCV 103.9 H, MCH 35.1 H, MCHC 33.8, RDW Std Deviation 59.9 H, RDW Coeff of Mariella 16.4 H, Plt Count 161, MPV 10.9, Immature Gran % (Auto) 2.900 H, Neut % (Auto) 92.8 H, Lymph % (Auto) 1.8 L, [place] % (Auto) 2.4, Eos % (Auto) 0.0, Baso % (Auto) 0.1, Absolute Neuts (auto) 19.0 H, Absolute Lymphs (auto) 0.37 L, Nucleated RBC % 0.1, Retic Count 3.63 H, Immature Retic Fraction 36.00 H, Retic Hgb Equivalent 38.0 H, Sodium 141, Potassium 3.9, Chloride 112 H, Carbon Dioxide 22.0, Anion Gap 7, BUN 17, Creatinine 0.79, Estim Creat Clear Calc 71.12, Est GFR (MDRD) Af Amer 124, Est GFR (MDRD) Non-Af 103, BUN/Creatinine Ratio 21.5 H, Glucose 162 H, Calcium 8.1 L, Magnesium 1.8, Iron 25 L, TIBC 149 L, Iron Saturation 16.8, Ferritin 384 Micro: Microbiology 07/09/23 08:25 Blood Culture (Wb) - Right Hand Blood Culture - Preliminary No growth in 48 hours. 07/09/23 08:18 Blood Culture (Wb) - Venous Blood Culture - Preliminary No growth in 48 hours. 07/09/23 08:49 Urine, Clean Catch Urine Culture - Final Culture exhibits no growth. Assessment and Plan . Assessment and plan: Patient seen and examined on 07/11/23 am Chart and data reviewed He is feeling better O2 2 LPM at rest Exam significant for decreased BS Lab, data, radiographs reviewed IMPRESSIONS: 1. Shortness of breath and hypoxemia The patient has an extensive tobacco abuse history, but has never been formally diagnosed with COPD. His chest imaging demonstrated findings concerning for bilateral emphysematous changes along with left upper lobe predominant groundglass changes and several other indeterminate nodular opacities. At this time, I recommend continuing antibiotics as ordered. I am going to place the patient on scheduled bronchodilator therapy along with corticosteroids, over concerns that he has underlying obstructive lung disease. Ultimately, the patient needs to follow-up in the pulmonary medicine clinic after discharge. I recommend that he complete pulmonary function studies, with plans to repeat a CT scan in 6 to 8 weeks following completion of his antibiotic treatment course. In addition, given the patient's reported concerns over aspiration, will obtain speech therapy evaluation today as well. Supplemental oxygen can be continued, if needed, to maintain saturations at or above 90%. 2. History of chronic tobacco dependency/history of throat CA and gastric carcinoma status post gastrectomy/history of DVT on Xarelto Complicates care, management, recovery and prognosis. Continue home medications as indicated. Tobacco cessation counseling was provided. Management as noted above. The entirety of this encounter was done via Telemedicine
[2023-07-12] MEDS: 0.9% Saline Lock 10 ML Syringe IV ×2 (05:56→21:36)
[2023-07-12] MEDS: Piperacil/Tazobactam 3.375 GM in 0.9% Normal Saline (50mL MB+) 50 ML IV ×2 (05:56→14:07)
[2023-07-12 06:05] LABS: Absolute Lymphocyte Count 0.39 X10^3/uL (0.83-4.51); Absolute Neutrophil Count 15.7 X10^3/uL (2.0-7.7); Basophil# 0.02 X10^3/uL; Basophil% 0.1 % (0-1); Hematocrit 22.6 % (40-54); Hemoglobin 7.3 g/dL (13.0-16.5); Lymphocyte # 0.39 X10^3/ul (0.83-4.51); Lymphocyte % 2.3 % (19-41); Mean Corp Hgb Conc 32.3 g/dL (32-36); Mean Corpuscular Hgb 33.8 pg (27.0-32.0); Mean Corpuscular Volume 104.6 fL (80-94); Monocyte# 0.48 X10^3/uL; Monocyte% 2.8 % (0-10); NRBC Flagged by Analyzer 0.2 % (0-5); Neutrophil # 15.66 X10^3/uL (2.7-7.7); Neutrophil % 92.2 % (47-70); POSITIVE DIFFERENTIAL YES; Platelet Count 208 K/mm3 (150-450); RBC Distribution Width CV 16.8 % (11.6-14.6); RBC Distribution Width SD 61.6 fl (35.1-43.9); Red Blood Count 2.16 M/mm3 (4.6-6.2)
[2023-07-12 06:36] LABS: Anion Gap 6 (5-15); BUN 15 mg/dL (7-18); BUN/Creat Ratio 17.1 RATIO (10-20); Calcium,Total 7.7 mg/dL (8.5-10.1); Chloride 112 mmol/L (98-107); Creatinine, Serum 0.88 mg/dL (0.70-1.30); EST Glomerular Filtration Rate 92 mL/min (>60); Est Glom Filt Rate - Afr Amer 111 mL/min (>60); Estimated Creatinine Clearance 64.66 ml/min; Glucose 135 mg/dL (74-106); Potassium 3.6 mmol/L (3.5-5.1); Sodium Level 140 mmol/L (136-145)
[2023-07-12] MEDS: Ipratropium/Albuterol Sulfate 3 ML AMPUL.NEB INHALATION ×4 (07:20→19:28)
[2023-07-12] MEDS: Clopidogrel Bisulfate 75 MG Tablet PO (07:45)
[2023-07-12] MEDS: Ferrous Sulfate 325 MG Tablet PO ×2 (07:45→18:43)
[2023-07-12] MEDS: Senna/Docusate Sodium 1 Tablet 2 TABLET PO (07:47)
[2023-07-12] MEDS: guaiFENesin 10 ML UDC (200MG/10ML) 20 ML PO (07:47)
[2023-07-12 07:53] LABS: Vitamin B12 1490 pg/mL (211-911)
[2023-07-12] MEDS: Vancomycin Trough/Random Due 1 LAB MC (10:16)
[2023-07-12] MEDS: levoFLOXacin IV 750 MG/150 ML BAG 100 MG IV (10:16)
[2023-07-12 10:46] LABS: Vancomycin, Trough Level 16.2 ug/mL (5.0-15.0)
--- NOTE | 2023-07-12 11:14 | PCM.RX.CS ---
Consult Antibiotic Management Pharmacy has been consulted to manage selected antibiotic: Vancomycin Type of Intervention Type of Consult: Follow-up Labs Labs: Sodium 140 mmol/L (136-145) 07/12/23 05:00 Potassium 3.6 mmol/L (3.5-5.1) 07/12/23 05:00 Chloride 112 mmol/L (98-107) H 07/12/23 05:00 Carbon Dioxide 22.0 mmol/L (21.0-32.0) 07/12/23 05:00 Anion Gap 6 (5-15) 07/12/23 05:00 BUN 15 mg/dL (7-18) 07/12/23 05:00 Creatinine 0.88 mg/dL (0.70-1.30) 07/12/23 05:00 Est GFR (MDRD) Af Amer 111 mL/min (>60) 07/12/23 05:00 Est GFR (MDRD) Non-Af 92 mL/min (>60) 07/12/23 05:00 BUN/Creatinine Ratio 17.1 RATIO (10-20) 07/12/23 05:00 Glucose 135 mg/dL (74-106) H 07/12/23 05:00 Vancomycin Trough 16.2 ug/mL (5.0-15.0) H 07/12/23 10:10 Microbiology Microbiology: Microbiology 07/12/23 09:07 Stool Stool Occult Blood (ROMAN) - Final Occult Blood Positive 07/09/23 08:25 Blood Culture (Wb) - Right Hand Blood Culture - Preliminary No growth in 48 hours. 07/09/23 08:18 Blood Culture (Wb) - Venous Blood Culture - Preliminary No growth in 48 hours. 07/09/23 08:49 Urine, Clean Catch Urine Culture - Final Culture exhibits no growth. 07/09/23 11:55 Mucosa - Nasopharyngeal Coronavirus COVID-19 PCR - Final 07/09/23 11:55 Mucosa - Nasopharyngeal Respiratory Panel (PCR) - Final 07/09/23 12:00 Mucosa - Throat Streptococcus pyogenes (PCR) - Final 07/09/23 08:49 Urine, Clean Catch Legionella Antigen - Final 07/09/23 08:49 Urine, Clean Catch Streptococcus pneumoniae Antigen (M - Final 07/09/23 08:34 Mucosa - Nasopharyngeal SARS-CoV-2, Influenza & RSV (PCR) - Final Goal Trough Goal Trough: 15-20 mcg/mL Pharmacy Plan for Drug Dosing Pharmacy Plan for Drug Dosing: VANCOMYCIN LEVEL RECEIVED Current Vancomycin Dose: 750MG IV Q12HR Number of Doses Received: 3 (of current regimen) Vancomycin Level: 16.2 Hours Since Last Dose: 11hr Renal Function: 0.88 Renal Function Trend: stable Lab/Micro: Cx pending, NGTD Vancomycin Plan/Comments: Patient had a trough drawn which resulted in a value of 16.2 (goal 15-20). Since the patient is within therapeutic range, we will continue the current dose of vancomycin 750mg IV Q12hr. Will recheck a trough in 2 days to re-assess dosing. Pending Level: 07/14/23 @1030 Pharmacy Service will continue to monitor and adjust dosing as required.
[2023-07-12] MEDS: Vancomycin HCl 750 MG in 0.9% Normal Saline (250mL Bag) 250 ML 250 MG IV (11:28)
--- NOTE | 2023-07-12 12:22 | PCM.PN.INT ---
Assessment & Plan Assessment/Plan (1) SOB (shortness of breath): PLAN: Plan RECOMMENDATIONS: 1. Walking oximetry prior to discharge 2. Consider narrowing antibiotic spectrum (Augmentin p.o.) 3. Continue bronchodilator therapy and wean steroids. 4. Encourage incentive spirometer use and mobilize patient as tolerated. 5. Consult GI for possible upper endoscopy and guaiac positive stools 6. Outpatient pulmonary follow-up after discharge with Dr. Sandra at [facility]. 7. Recommend follow-up CT scan in 6 to 8 weeks following completion of antibiotics. 8. Hemodynamically stable on room air with plans to follow-up with [facility]. Will sign off from a critical care/pulmonary perspective IMPRESSIONS: 1. Shortness of breath and hypoxemia High clinical suspicion for COPD at baseline with aspiration events leading to repeated exacerbations. Patient does have ongoing smoking, likely leading to progression of disease. Patient states he would like to follow-up with Dr. Sandra at the [facility]. Likely okay to transition to Augmentin and complete a 7-day course. Patient is reporting some repeated dysphagia and speech has been consulted. However, guaiac positive and history of gastrectomy, so may benefit from a GI evaluation for possible stricture. Patient is tolerating room air at this time. Patient should have a walking oximetry prior to discharge. If patient continues to improve, will transition to prednisone 40 mg tomorrow if okay with GI and wean over the next 10 to 12 days. Patient should follow-up relatively quickly (2 to 4 weeks) with Dr. Sandra at [facility] to avoid repeated hospitalization. Cultures are negative, so reasonable to discontinue antibiotics and transition to Augmentin p.o. to complete a 7-10-day total course of antibiotics. 2. History of chronic tobacco dependency/history of throat CA and gastric carcinoma status post gastrectomy/history of DVT on Xarelto Complicates care, management, recovery and prognosis. Continue home medications as indicated. Tobacco cessation counseling was provided. Management as noted above. This note was generated with [employer] dictation software. It may contain incorrect words, spelling, and punctuation that were not noted in checking the note before signing. Subjective Subjective Patient did okay overnight. No acute issues were reported. Patient is on room air at this time and tolerating well. On further questioning, patient reportedly has had repeated aspiration events over the last 3 months. 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 Sandra at the [facility]. Patient states he is willing to see her as an outpatient for optimization of a respiratory status. Patient does continue to smoke on a regular basis. Objective Data Objective Data Vital Signs: Vital Signs Temp Pulse Resp BP Pulse Ox O2 Del Method O2 Flow Rate 36.5 C L 79 20 H 134/83 H 93 Room Air 2 07/12/23 09:20 07/12/23 10:43 07/12/23 10:43 07/12/23 09:20 07/12/23 09:20 07/12/23 09:20 07/09/23 08:32 Oxygen Flow Rate (L/min) 2 Oxygen Delivery Method Room Air Weight: 57.7 kg Body Mass Index (BMI) 19.3 Intake & Output: Intake and Output for Last 24 Hours 07/10/23 07/11/23 07/12/23 22:59 23:59 23:59 Intake Total 1454.17 / 1454.17 Output Total 450 / 450 Balance 1004.17 / 1004.17 Lab / Micro Data Attestation: I reviewed the patient's lab results. 07/12/23 05:00 07/12/23 05:00 Labs: Laboratory Results - last 24 hr 07/11/23 04:15: Vitamin B12 1490 H 07/12/23 05:00: WBC 17.0 H, RBC 2.16 L, Hgb 7.3 L, Hct 22.6 L, MCV 104.6 H, MCH 33.8 H, MCHC 32.3, RDW Std Deviation 61.6 H, RDW Coeff of Mariella 16.8 H, Plt Count 208, MPV 11.0, Immature Gran % (Auto) 2.600 H, Neut % (Auto) 92.2 H, Lymph % (Auto) 2.3 L, [place] % (Auto) 2.8, Eos % (Auto) 0.0, Baso % (Auto) 0.1, Absolute Neuts (auto) 15.7 H, Absolute Lymphs (auto) 0.39 L, Nucleated RBC % 0.2, Sodium 140, Potassium 3.6, Chloride 112 H, Carbon Dioxide 22.0, Anion Gap 6, BUN 15, Creatinine 0.88, Estim Creat Clear Calc 64.66, Est GFR (MDRD) Af Amer 111, Est GFR (MDRD) Non-Af 92, BUN/Creatinine Ratio 17.1, Glucose 135 H, Calcium 7.7 L 07/12/23 10:10: Vancomycin Trough 16.2 H Micro: Microbiology 07/12/23 09:07 Stool Stool Occult Blood (ROMAN) - Final Occult Blood Positive 07/09/23 08:25 Blood Culture (Wb) - Right Hand Blood Culture - Preliminary No growth in 48 hours. 07/09/23 08:18 Blood Culture (Wb) - Venous Blood Culture - Preliminary No growth in 48 hours. 07/09/23 08:49 Urine, Clean Catch Urine Culture - Final Culture exhibits no growth. 07/09/23 11:55 Mucosa - Nasopharyngeal Coronavirus COVID-19 PCR - Final 07/09/23 11:55 Mucosa - Nasopharyngeal Respiratory Panel (PCR) - Final 07/09/23 12:00 Mucosa - Throat Streptococcus pyogenes (PCR) - Final 07/09/23 08:49 Urine, Clean Catch Legionella Antigen - Final 07/09/23 08:49 Urine, Clean Catch Streptococcus pneumoniae Antigen (M - Final 07/09/23 08:34 Mucosa - Nasopharyngeal SARS-CoV-2, Influenza & RSV (PCR) - Final Physical Exam Const alert, oriented x3 and no apparent distress Constitutional Narrative: No conversational dyspnea General Appearance: cooperative HEENT normocephalic and head/scalp atraumatic Eyes PERRL, EOMs intact bilaterally and conjunctivae normal Neck supple General: trachea midline Chest inspection of chest normal Resp normal respiratory effort Auscultation: wheezes and diminished lung sounds; Negative for rales or rhonchi Cardio regular rate, regular rhythm, S1 normal heart sound, S2 normal heart sound, no murmurs, no rub and no gallops GI normal to inspection, nondistended, normoactive bowel sounds Extremity no clubbing, cyanosis or edema Skin no rashes or lesions noted Neuro CN's II-XII intact bilaterally, moves all extremities and no focal motor deficits Psych cooperative and affect normal Charges/Coding Visit Charges Inpatient E&M: 10572 Subs Hosp L2
--- NOTE | 2023-07-12 18:25 | PN.HOSP_ITS ---
Reason for Visit Reason for Visit: Shortness of breath Subjective Subjective Mr. Gomez is a 67-year-old male who presented to the emergency department at [facility] on 07/09/2023 due to shortness of breath. The patient has a history of gastric carcinoma status postgastrectomy and throat cancer that was treated with cryotherapy who started having shortness of breath about 2 days prior. In addition to his shortness of breath he experienced some cough and subjective fever and chills. He was seen in June by his primary care physician and was treated with Augmentin for pneumonia. Due to his worsening symptoms he came the emergency department for further evaluation. On presentation he had a temperature of 99.2, heart rate 119, respiratory was 22, blood pressure was 90/60 and oxygen saturation was 92% on 2 L nasal cannula. He was admitted for sepsis secondary to pneumonia due to lactic acidosis, new hypoxia, relative hypotension and was treated with antibiotics and aggressive fluid resuscitation after cultures were obtained. Blood cultures were negative. COVID-19/flu/RSV was unremarkable and strep pneumo and Legionella antigens are negative. Pulmonary medicine was consulted and recommended narrowing his antibiotics, continuing to wean steroids and encourage bronchodilator therapy as well as incentive spirometry and mobilization. Outpatient follow-up recommended at [facility]-Dr. Sandra with a follow-up CT scan in 6 to 8 weeks after completion of antibiotics. The patient has been able to be weaned to room air and is curre ntly 90%. Patient states overall he is feeling much better. States his shortness of breath and breathing problems have improved. Does acknowledge previous DVTs and he thinks the last time he had any acute clots was about 4 years ago however he has had recurrent clots and needs chronic anticoagulation. Objective Data Objective Data Vital Signs: Vital Signs Temp Pulse Resp BP Pulse Ox O2 Del Method O2 Flow Rate 97.9 F 104 H 18 137/85 H 90 Room Air 2 07/12/23 16:41 07/12/23 16:41 07/12/23 16:41 07/12/23 16:41 07/12/23 16:44 07/12/23 16:44 07/09/23 08:32 Oxygen Flow Rate (L/min) 2 Oxygen Delivery Method Room Air Weight: 57.7 kg Body Mass Index (BMI) 19.3 Intake & Output: Intake and Output for Last 24 Hours 03/01/2407/11/23 07/12/23 22:59 23:59 23:59 Intake Total 1719.17 / 1719.17 Output Total 450 / 450 Balance 1269.17 / 1269.17 Lab / Micro Data 07/12/23 05:00 07/12/23 05:00 Labs: Laboratory Results - last 24 hr 07/11/23 04:15: Vitamin B12 1490 H 07/12/23 05:00: WBC 17.0 H, RBC 2.16 L, Hgb 7.3 L, Hct 22.6 L, MCV 104.6 H, MCH 33.8 H, MCHC 32.3, RDW Std Deviation 61.6 H, RDW Coeff of Mariella 16.8 H, Plt Count 208, MPV 11.0, Immature Gran % (Auto) 2.600 H, Neut % (Auto) 92.2 H, Lymph % (Auto) 2.3 L, [place] % (Auto) 2.8, Eos % (Auto) 0.0, Baso % (Auto) 0.1, Absolute Neuts (auto) 15.7 H, Absolute Lymphs (auto) 0.39 L, Nucleated RBC % 0.2, Sodium 140, Potassium 3.6, Chloride 112 H, Carbon Dioxide 22.0, Anion Gap 6, BUN 15, Creatinine 0.88, Estim Creat Clear Calc 64.66, Est GFR (MDRD) Af Amer 111, Est GFR (MDRD) Non-Af 92, BUN/Creatinine Ratio 17.1, Glucose 135 H, Calcium 7.7 L 07/12/23 10:10: Vancomycin Trough 16.2 H Micro: Microbiology 07/12/23 09:07 Stool Stool Occult Blood (ROMAN) - Final Occult Blood Positive 07/09/23 08:25 Blood Culture (Wb) - Right Hand Blood Culture - Preliminary No growth in 48 hours. 07/09/23 08:18 Blood Culture (Wb) - Venous Blood Culture - Preliminary No growth in 48 hours. 07/09/23 08:49 Urine, Clean Catch Urine Culture - Final Culture exhibits no growth. 07/09/23 11:55 Mucosa - Nasopharyngeal Coronavirus COVID-19 PCR - Final 07/09/23 11:55 Mucosa - Nasopharyngeal Respiratory Panel (PCR) - Final 07/09/23 12:00 Mucosa - Throat Streptococcus pyogenes (PCR) - Final 07/09/23 08:49 Urine, Clean Catch Legionella Antigen - Final 07/09/23 08:49 Urine, Clean Catch Streptococcus pneumoniae Antigen (M - Final 07/09/23 08:34 Mucosa - Nasopharyngeal SARS-CoV-2, Influenza & RSV (PCR) - Final Physical Exam Const alert, oriented x3, no apparent distress and healthy appearing Constitutional Narrative: Upper middle-aged, chronically ill, older than stated age, white male, sitting up in bed, watching television and currently appears comfortable HEENT head/scalp atraumatic, moist oral mucous membranes and oropharynx normal Head and Scalp: normocephalic Resp normal respiratory effort, no retractions, no use of accessory muscles and clear to auscultation bilaterally Resp Narrative: Diffusely diminished but clear Auscultation: Negative for rales, rhonchi or wheezes Cardio regular rate, regular rhythm, S1 normal heart sound, S2 normal heart sound, no murmurs, no rub, no gallops and no clicks GI normal to inspection, nondistended, normoactive bowel sounds, soft to palpation and non-tender Extremity no clubbing, cyanosis or edema Extremity Narrative: Pedal pulses are 2+ Neuro oriented x3, moves all extremities and no focal motor deficits Speech: speech normal Psych affect normal Psych Narrative: Pleasant, interacts appropriately Assessment & Plan Assessment/Plan (1) SOB (shortness of breath): (2) GI bleed: (3) Sepsis: (4) Aspiration pneumonia: PLAN: Plan Sepsis secondary to suspected aspiration pneumonia -All cultures are negative however aspiration is highly suspected and sputum culture was not able to be collected -Discontinue current IV antibiotics and transition to Augmentin 875 mg p.o. twice daily -Patient has undergone previous treatment for aspiration and speech therapy evaluated the patient -clinically improving -continue speech therapy-->Reg/Thin recommended -continue modifications -cont outpt speech therapy at discharge -Continue pulmonary toilet -Encourage mobility -Continue steroids with slow taper at discharge Acute hypoxia secondary to the above -Patient is now on room air -Will need ambulatory pulse ox at discharge -Will need outpatient follow-up with primary electrophysiology tech at [facility]-Dr. Sandra -Outpatient CT recommended in 6 to 8 weeks after antibiotics completion to ensure resolution -Check ambulatory pulse ox prior to discharge Acute on chronic anemia -Hemoglobin dropped from 8.0-7.2 in a 24-hour period and remains down today -Guaiac positive -Hold Plavix and Xarelto -Start Protonix IV twice daily -Iron studies seem more consistent with anemia of chronic disease -Continue home iron supplementation -Patient does have documented history of peptic ulcer disease -GI consult for EGD History of PUD -Not currently on any PPI -Start IV Protonix 40 mg IV twice daily -Consult pending for EGD--> patient status post gastrectomy due to cancer--> current anatomy is unclear History of DVT -Patient on full anticoagulation with Xarelto -Will need to hold and restart as soon as able -Last event was 4 years ago however 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 Infrarenal AAA-stable -Patient has plan to follow-up with vascular surgery as an outpatient -no acute issues PAD -Plavix and anticoagulation on hold due to positive stool guaiac -Restart when able COPD -Recommend outpatient follow-up Hyperlipidemia -Continue home statin History of gastric cancer/throat cancer -Continue ongoing outpatient follow-up -no acute issues DVT prophylaxis -Anticoagulation is on hold due to suspected GI bleed -SCDs CODE STATUS -Full code is verified admission Charges/Coding Visit Charges Inpatient E&M: 02951 [facility] [[email or web address]] Hosp L3
[2023-07-12] MEDS: Pantoprazole Sodium 40 MG in 0.9% Normal Saline (100mL MB+) 100 ML 330 MG IV (19:36)
[2023-07-12] MEDS: Amox/Clavulanate 875 MG Tablet PO (21:35)
[2023-07-12] MEDS: Atorvastatin Calcium 40 MG Tablet PO (21:35)
[2023-07-13] VITALS (9 sets, daily range): BP systolic 138–152; BP diastolic 79–89; PULSE 75–99; RESP 16–20; TEMP 36.2–37; O2SAT 90–97
[2023-07-13 05:23] LABS: Absolute Lymphocyte Count 0.41 X10^3/uL (0.83-4.51); Absolute Neutrophil Count 8.3 X10^3/uL (2.0-7.7); Basophil# 0.01 X10^3/uL; Basophil% 0.1 % (0-1); Hematocrit 24.3 % (40-54); Hemoglobin 7.9 g/dL (13.0-16.5); Lymphocyte # 0.41 X10^3/ul (0.83-4.51); Lymphocyte % 4.4 % (19-41); Mean Corp Hgb Conc 32.5 g/dL (32-36); Mean Corpuscular Hgb 33.6 pg (27.0-32.0); Mean Corpuscular Volume 103.4 fL (80-94); Mean Platelet Vol. 10.3 fl (6.2-12.0); Monocyte# 0.49 X10^3/uL; Monocyte% 5.3 % (0-10); NRBC Flagged by Analyzer 0.3 % (0-5); Neutrophil # 8.29 X10^3/uL (2.7-7.7); Neutrophil % 88.9 % (47-70); POSITIVE DIFFERENTIAL YES; Platelet Count 210 K/mm3 (150-450); RBC Distribution Width CV 16.8 % (11.6-14.6); RBC Distribution Width SD 61.1 fl (35.1-43.9); Red Blood Count 2.35 M/mm3 (4.6-6.2); White Blood Count 9.3 K/mm3 (4.4-11.0)
[2023-07-13 05:46] LABS: Anion Gap 5 (5-15); BUN 12 mg/dL (7-18); BUN/Creat Ratio 12.6 RATIO (10-20); Chloride 111 mmol/L (98-107); Creatinine, Serum 0.95 mg/dL (0.70-1.30); EST Glomerular Filtration Rate 83 mL/min (>60); Est Glom Filt Rate - Afr Amer 101 mL/min (>60); Estimated Creatinine Clearance 59.89 ml/min; Glucose 124 mg/dL (74-106); Potassium 3.7 mmol/L (3.5-5.1); Sodium Level 140 mmol/L (136-145)
[2023-07-13] MEDS: 0.9% Saline Lock 10 ML Syringe IV ×2 (06:07→15:46)
[2023-07-13] MEDS: Ipratropium/Albuterol Sulfate 3 ML AMPUL.NEB INHALATION ×4 (06:40→20:15)
[2023-07-13 07:56] LABS: Pathologist Review Reviewed
[2023-07-13] MEDS: Pantoprazole Sodium 40 MG in 0.9% Normal Saline (100mL MB+) 100 ML 330 MG IV ×2 (10:01→21:49)
--- NOTE | 2023-07-13 14:30 | EGD_PTH ---
PATHOLOGY RESULTS PATIENT: ALFREDA RAMIREZ Jr. LOC: [facility] U#:[id number] AGE/SX: 67/M ROOM: [facility] RE07/09/[address]: Dr. Katharina Black DO : 1955 BED: 1 DIS: 07/14/2023 SPEC #: [id number] RECD: 07/13/23 17:52 STATUS: MAGY REQ #: [id number] BRENT: 07/13/23 14:[address]: Nick Portillo DEPT: SURGICAL PATHOLOGY RECD BY: Ivis Winter ENTERED: 07/14/23 09:25 SP TYPE: EGD BIOPSY OTHR DR: MD Dr. Lamonte Christy DO Dr. Kathryn Lee, DO Tissues: Esophagus, NOS Procedures: Special Stain Group II Special Stain Group I Surgery Specimen Level IV GMS Stain (control) Alcian Blue/PAS (control) Comments: @ Ordering doctor for SSII edited from to @ by FAVIAN at 07/19/23 143 @ Ordering doctor for SSI edited from to @ by FAVIAN at 07/19/23 143 @ Ordering doctor for SUIV edited from to @ by FAVIAN at 07/19/23 143 @ Ordering doctor for GMS edited from to @ by FAVIAN at 07/19/23 143 @ Ordering doctor for AB-PAS edited from to @ by FAVIAN at 07/19/23 1439 @ Submitting doctor edited from to @ by FAVIAN at 07/19/231438 HEADER OPERATION: EGD PRE-OP DIAGNOSIS: Dysphagia TISSUE SUBMITTED: Distal esophagus MICROSCOPIC DIAGNOSIS Distal esophagus, biopsy; Focal acute inflammation. Organisms consistent with sheeba species. No evidence of goblet cell metaplasia. See comment. AM/ 07/15/2023 COMMENT Alcian blue/PAS stain with matched control supports the above diagnosis. GMS stain with matched control was used in the evaluation of this case. MICROSCOPIC DESCRIPTION Slides are reviewed. GROSS DESCRIPTION Received in fixative is one container labeled with the patient's name and designated Distal esophagus. The specimen consists of multiple irregular fragments of light mulligan soft tissue that in aggregate measure 1.0 x 0.3 x 0.1 cm. The specimen is totally submitted in one cassette. Rachid 07/14/23 TC:2 CPT: 98667,03126,27382
--- NOTE | 2023-07-13 15:03 | OP.CCLET_ITS ---
07/13/2023 Lamonte Michael [address] [place] [address] Re : Upper GI endoscopy procedure for Enoc Gomez Dear Dr. Michael This procedure was performed on Thursday, July 13, 2023. My impressions and recommendations are as follows: Impressions : - Tortuous esophagus. - Abnormal esophageal motility, consistent with achalasia. - Moderate Schatzki ring. Dilated. - LA Grade B erosive esophagitis with bleeding. Biopsied. - Medium-sized hiatal hernia. - Zeeshan-en-Y gastrojejunostomy with gastrojejunal anastomosis characterized by edema, erosion, erythema and friable mucosa. - Normal examined jejunum. Recommendations : - Return patient to hospital [facility] for ongoing care. - Full liquid diet. - Continue present medications. - Await pathology results. - Use Protonix (pantoprazole) 40 mg PO BID for 12 weeks. - Carafate liquid or crushed pills 1 g 3 times a day -If patient still has esophageal dysphagia and likely secondary to esophageal dysmotility disorder he will need to undergo esophageal manometry and possible Botox injections. My findings are described in the full procedure note, which is enclosed. If I can be of further assistance, please feel free to contact me at . Sincerely, Nick Friend, 07/13/2023 2:51:43 PM This report has been signed electronically.
--- NOTE | 2023-07-13 15:03 | OP.EGD_ITS ---
Patient Name: Enoc Gomez Procedure Date: 07/13/2023 2:31 PM Date of : 1955 Age: 67 Procedure: Upper GI endoscopy Indications: Dysphagia Providers: Nick Portillo DO Medicines: Monitored Anesthesia Care Patient Profile: This is a 67 year old male. Refer to note in patient chart for documentation of history and physical. Patient has symptoms of chronic dysphagia and dysphagia with solids. Complications: No immediate complications. Procedure: Pre-Anesthesia Assessment: - Prior to the procedure, a History and Physical was performed, and patient medications and allergies were reviewed. The patient is competent. The risks and benefits of the procedure and the sedation options and risks were discussed with the patient. All questions were answered and informed consent was obtained. Patient identification and proposed procedure were verified by the physician in the pre-procedure area. Mental Status Examination: alert and oriented. Airway Examination: normal oropharyngeal airway and neck mobility. Respiratory Examination: clear to auscultation. CV Examination: normal. Prophylactic Antibiotics: The patient does not require prophylactic antibiotics. Prior Anticoagulants: The patient has taken no anticoagulant or antiplatelet agents. ASA Grade Assessment: III - A patient with severe systemic disease. After reviewing the risks and benefits, the patient was deemed in satisfactory condition to undergo the procedure. The anesthesia plan was to use monitored anesthesia care (MAC). Immediately prior to administration of medications, the patient was re-assessed for adequacy to receive sedatives. The heart rate, respiratory rate, oxygen saturations, blood pressure, adequacy of pulmonary ventilation, and response to care were monitored throughout the procedure. The physical status of the patient was re-assessed after the procedure. After obtaining informed consent, the endoscope was passed under direct vision. Throughout the procedure, the patient's blood pressure, pulse, and oxygen saturations were monitored continuously. The Endoscope was introduced through the mouth, and advanced to the second part of duodenum. The upper GI endoscopy was accomplished without difficulty. The patient tolerated the procedure well. Scope In: 2:31:27 PM Scope Out: 2:39:14 PM Total Procedure Duration Time 0 hours 7 minutes 47 seconds Findings: The examined esophagus was significantly tortuous. Abnormal motility was noted in the lower third of the esophagus. The cricopharyngeus was normal. There is spasticity and extra peristaltic waves of the esophageal body. The distal esophagus/lower esophageal sphincter is spastic, but gives up passage to the endoscope. Tertiary peristaltic waves are noted. A moderate Schatzki ring was found at the gastroesophageal junction. A guidewire was placed and the scope was withdrawn. Dilation was performed with a Savary dilator with no resistance at 60 Fr. The dilation site was examined and showed moderate improvement in luminal narrowing. LA Grade B (one or more mucosal breaks greater than 5 mm, not extending between the tops of two mucosal folds) esophagitis with bleeding was found 36 to 40 cm from the incisors. Biopsies were taken with a cold forceps for histology. Verification of patient identification for the specimen was done. Estimated blood loss was minimal. A medium-sized hiatal hernia was present. Evidence of a Zeeshan-en-Y gastrojejunostomy was found. The gastrojejunal anastomosis was characterized by edema, erosion, erythema and friable mucosa. This was traversed. The dwvsm-am-xtdzorb limb was characterized by edema, erosion and erythema. The jejunojejunal anastomosis was characterized by healthy appearing mucosa. The wpbtiucc-dc-sddtdys limb was examined 78 cm from the anastomosis. The excluded stomach was not examined as it could not be found. The examined jejunum was normal. Impression: - Tortuous esophagus. - Abnormal esophageal motility, consistent with achalasia. - Moderate Schatzki ring. Dilated. - LA Grade B erosive esophagitis with bleeding. Biopsied. - Medium-sized hiatal hernia. - Zeeshan-en-Y gastrojejunostomy with gastrojejunal anastomosis characterized by edema, erosion, erythema and friable mucosa. - Normal examined jejunum. Recommendation: - Return patient to hospital [facility] for ongoing care. - Full liquid diet. - Continue present medications. - Await pathology results. - Use Protonix (pantoprazole) 40 mg PO BID for 12 weeks. - Carafate liquid or crushed pills 1 g 3 times a day -If patient still has esophageal dysphagia and likely secondary to esophageal dysmotility disorder he will need to undergo esophageal manometry and possible Botox injections. Procedure Code(s): --- Professional --- 13705, Esophagogastroduodenoscopy, flexible, transoral; with insertion of guide wire followed by passage of dilator(s) through esophagus over guide wire 39938, 59,51, Esophagogastroduodenoscopy, flexible, transoral; with biopsy, single or multiple CPT copyright 2021 [employer]. All rights reserved. The codes documented in this report are preliminary and upon virtual recruiter review may be revised to meet current compliance requirements. Nick Portillo DO 07/13/2023 2:51:43 PM This report has been signed electronically. Number of Addenda: 0 Note Initiated On: 07/13/2023 2:31 PM
[2023-07-13] MEDS: Ferrous Sulfate 325 MG Tablet PO (17:04)
--- NOTE | 2023-07-13 17:12 | PCM.PN.HOSP ---
Reason for Visit Reason for Visit: Shortness of breath Subjective Subjective Patient states he is feeling okay. Understands the need for EGD which is planned for this afternoon. Denies any issues. Anxious to go home whenever possible. Objective Data Objective Data Vital Signs: Vital Signs Temp Pulse Resp BP Pulse Ox O2 Del Method O2 Flow Rate 97.9 F 88 16 152/87 H 96 Nasal Cannula 2 07/13/23 15:39 07/13/23 15:39 07/13/23 15:39 07/13/23 15:39 07/13/23 15:39 07/13/23 15:39 07/13/23 15:39 Oxygen Flow Rate (L/min) 2 Oxygen Delivery Method Nasal Cannula Weight: 57.7 kg Body Mass Index (BMI) 19.3 Intake & Output: Intake and Output for Last 24 Hours 07/11/23 07/12/23 07/13/23 23:59 23:59 23:59 Intake Total 2339.17 / 3139.17 910 / 910 Output Total 1225 / 1725 900 / 900 Balance 1114.17 / 1414.17 Lab / Micro Data 07/13/23 05:09 07/13/23 05:09 Labs: Laboratory Results - last 24 hr 07/09/23 08:18: Diff Path Review Reviewed 07/13/23 05:09: WBC 9.3, RBC 2.35 L, Hgb 7.9 L, Hct 24.3 L, MCV 103.4 H, MCH 33.6 H, MCHC 32.5, RDW Std Deviation 61.1 H, RDW Coeff of Mariella 16.8 H, Plt Count 210, MPV 10.3, Immature Gran % (Auto) 1.300 H, Neut % (Auto) 88.9 H, Lymph % (Auto) 4.4 L, [place] % (Auto) 5.3, Eos % (Auto) 0.0, Baso % (Auto) 0.1, Absolute Neuts (auto) 8.3 H, Absolute Lymphs (auto) 0.41 L, Nucleated RBC % 0.3, Sodium 140, Potassium 3.7, Chloride 111 H, Carbon Dioxide 24.0, Anion Gap 5, BUN 12, Creatinine 0.95, Estim Creat Clear Calc 59.89, Est GFR (MDRD) Af Amer 101, Est GFR (MDRD) Non-Af 83, BUN/Creatinine Ratio 12.6, Glucose 124 H, Calcium 8.0 L Micro: Microbiology 07/12/23 09:07 Stool Stool Occult Blood (ROMAN) - Final Occult Blood Positive 07/09/23 08:25 Blood Culture (Wb) - Right Hand Blood Culture - Preliminary No growth in 48 hours. 07/09/23 08:18 Blood Culture (Wb) - Venous Blood Culture - Preliminary No growth in 48 hours. 07/09/23 08:49 Urine, Clean Catch Urine Culture - Final Culture exhibits no growth. 07/09/23 11:55 Mucosa - Nasopharyngeal Coronavirus COVID-19 PCR - Final 07/09/23 11:55 Mucosa - Nasopharyngeal Respiratory Panel (PCR) - Final 07/09/23 12:00 Mucosa - Throat Streptococcus pyogenes (PCR) - Final 07/09/23 08:49 Urine, Clean Catch Legionella Antigen - Final 07/09/23 08:49 Urine, Clean Catch Streptococcus pneumoniae Antigen (M - Final 07/09/23 08:34 Mucosa - Nasopharyngeal SARS-CoV-2, Influenza & RSV (PCR) - Final Physical Exam Const alert, oriented x3, no apparent distress and healthy appearing Constitutional Narrative: Upper middle-aged, chronically ill, older than stated age, white male, sitting up in bed, family and friends at bedside, currently appears comfortable HEENT head/scalp atraumatic, moist oral mucous membranes and oropharynx normal HEENT Narrative: Mallampati 2, no thrush Resp normal respiratory effort, no retractions, no use of accessory muscles and clear to auscultation bilaterally Resp Narrative: Diffusely diminished but clear Auscultation: Negative for rales, rhonchi or wheezes Cardio regular rate, regular rhythm, S1 normal heart sound, S2 normal heart sound, no murmurs, no rub, no gallops and no clicks GI normal to inspection, nondistended, normoactive bowel sounds, soft to palpation and non-tender Extremity no clubbing, cyanosis or edema Extremity Narrative: Pedal pulses are 2+ Neuro oriented x3, moves all extremities and no focal motor deficits Speech: speech normal Psych affect normal Psych Narrative: Pleasant, interacts appropriately Assessment & Plan Assessment/Plan (1) SOB (shortness of breath): (2) GI bleed: (3) Sepsis: (4) Aspiration pneumonia: PLAN: Plan Sepsis secondary to suspected aspiration pneumonia -All cultures are negative however aspiration is highly suspected and sputum culture was not able to be collected -Discontinue current IV antibiotics and transition to Augmentin 875 mg p.o. twice daily--> continue antibiotics for total of 10 days -Patient has undergone previous treatment for aspiration and speech therapy evaluated the patient -clinically improving -continue speech therapy-->Reg/Thin recommended -continue modifications -cont outpt speech therapy at discharge -Continue pulmonary toilet -Encourage mobility -Continue steroids with slow taper at discharge Acute hypoxia secondary to the above -Patient remains on room air -Will need ambulatory pulse ox at discharge -Will need outpatient follow-up with primary insurance underwriter sales at [facility]-Dr. Sandra -Outpatient CT recommended in 6 to 8 weeks after antibiotics completion to ensure resolution -Check ambulatory pulse ox prior to discharge Acute on chronic anemia -Hemoglobin dropped from 8.0-7.2 in a 24-hour period and remains down today -EGD done on 07/13/2023 which demonstrated a tortuous esophagus with abnormal esophageal motility consistent with achalasia, moderate Schatzki's ring that was dilated, grade B erosive esophagitis with bleeding, medium size hiatal hernia, Zeeshan-en-Y gastrojejunostomy with a gastrojejunal anastomosis characterized by edema, erosion, erythema, and fibrin leukosis. Jejunum was normal. -Continue to hold Plavix and Xarelto -Continue IV Protonix and transition to 40 mg p.o. 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 Infrarenal AAA-stable -Patient has plan to follow-up with vascular surgery as an outpatient -no acute issues PAD -Will hold Plavix for 2 weeks and then restart per discussion with GI COPD -Recommend outpatient follow-up Hyperlipidemia -Continue home statin History of gastric cancer/throat cancer -Continue ongoing outpatient follow-up -no acute issues DVT prophylaxis -Anticoagulation is on hold due to suspected GI bleed -SCDs CODE STATUS -Full code is verified admission Disposition: -Possible discharge home tomorrow if hemoglobin remains stable and no clinical changes overnight Charges/Coding Visit Charges Inpatient E&M: 64402 Subs Hosp L2
[2023-07-13] MEDS: amLODIPine 5 MG Tablet PO (17:55)
[2023-07-13] MEDS: Atorvastatin Calcium 40 MG Tablet PO (21:50)
[2023-07-13] MEDS: Sucralfate 1 GM Tablet PO (21:50)
[2023-07-13] MEDS: Amox/Clavulanate 875 MG Tablet PO (21:50)
[2023-07-14] VITALS (7 sets, daily range): BP systolic 134–143; BP diastolic 79–88; PULSE 77–97; RESP 17–20; TEMP 36.3–36.6; O2SAT 92–97
[2023-07-14] MEDS: Sucralfate 1 GM Tablet PO ×3 (06:21→15:18)
[2023-07-14] MEDS: Ipratropium/Albuterol Sulfate 3 ML AMPUL.NEB INHALATION ×2 (06:39→11:02)
[2023-07-14 07:33] LABS: Hemoglobin 9.9 g/dL (13.0-16.5); Mean Corpuscular Hgb 34.1 pg (27.0-32.0); Mean Corpuscular Volume 103.4 fL (80-94); Mean Platelet Vol. 10.7 fl (6.2-12.0); Platelet Count 217 K/mm3 (150-450); RBC Distribution Width CV 16.7 % (11.6-14.6); RBC Distribution Width SD 63.6 fl (35.1-43.9); White Blood Count 5.3 K/mm3 (4.4-11.0)
[2023-07-14 08:21] LABS: Anion Gap 7 (5-15); BUN 11 mg/dL (7-18); BUN/Creat Ratio 12.9 RATIO (10-20); Calcium,Total 8.2 mg/dL (8.5-10.1); Chloride 104 mmol/L (98-107); Creatinine, Serum 0.86 mg/dL (0.70-1.30); EST Glomerular Filtration Rate 94 mL/min (>60); Est Glom Filt Rate - Afr Amer 114 mL/min (>60); Estimated Creatinine Clearance 66.16 ml/min; Glucose 101 mg/dL (74-106); Potassium 3.5 mmol/L (3.5-5.1); Sodium Level 137 mmol/L (136-145)
[2023-07-14] MEDS: Amox/Clavulanate 875 MG Tablet PO (09:56)
[2023-07-14] MEDS: Ferrous Sulfate 325 MG Tablet PO (09:56)
[2023-07-14] MEDS: Pantoprazole Sodium 40 MG in 0.9% Normal Saline (100mL MB+) 100 ML 330 MG IV (09:56)
[2023-07-14] MEDS: amLODIPine 5 MG Tablet PO (10:01)
[2023-07-14 12:52] LABS: Hemoglobin 10.2 g/dL (13.0-16.5)
--- NOTE | 2023-07-14 13:51 | PCM.DC.SUM ---
Providers Date of Admission: 07/09/23 Date of Discharge: 07/14/23 Primary Care Physician: Dr. Lamonte Michael, Consultations 07/09/23 11:08 Consult: Rouge Sifter / Pulmonary Medicine Routine Consulting Provider: Marc Sandra Reason for Consult: Recurrent pneumonia EMERGENT Consult: No Notified: Yes Date Notified: 07/09/23 Time Notified: 10:48 Method of Notification: Verbal 07/12/23 10:37 Consult: Gastroenterology Routine Consulting Provider: J[facility] Reason for Consult: Dysphagia with recurrent aspiration EMERGENT Consult: No Notified: Yes Date Notified: 07/12/23 Time Notified: 10:38 Method of Notification: Text Reason For Visit: SEPSIS SECONDARY TO PNEUMONIA Diagnosis Discharge Diagnosis (1) SOB (shortness of breath): Status: Acute Code(s): R06.02 - Shortness of breath (2) GI bleed: Status: Inactive Code(s): K92.2 - Gastrointestinal hemorrhage, unspecified (3) Sepsis: Status: Acute Code(s): A41.9 - Sepsis, unspecified organism (4) Aspiration pneumonia: Status: Acute Code(s): J69.0 - Pneumonitis due to inhalation of food and vomit Medications at Discharge Home Medications rivaroxaban 20 mg tablet (Xarelto) 20 mg PO DAILY blood thinner 05/04/17 acetaminophen 325 mg tablet (Tylenol) 650 mg (2 x 325 mg) PO Q6H PRN PRN Non-cardiac pain (mod-severe) 08/12/18 atorvastatin 40 mg tablet 40 mg PO DAILY cholesterol 01/04/23 clopidogrel 75 mg tablet 75 mg PO DAILY anti platelet 01/04/23 cyanocobalamin (vitamin B-12) 1 tab PO DAILY supplement 03/31/23 ferrous sulfate 325 mg (65 mg iron) tablet 325 mg PO BIDCM iron supplement #1 TAB 04/01/23 multivit with [id number] 18 mg iron-800 mcg-150 mg tablet (Vitamin D3 Complete) 1 tab PO DAILY vitamin 07/09/23 amlodipine 10 mg tablet 10 mg PO DAILY #30 tabs 07/14/23 amoxicillin 875 mg-potassium clavulanate 125 mg tablet 1 tab PO BID 4 days #8 tabs 07/14/23 pantoprazole 40 mg tablet,delayed release (Protonix) 40 mg PO DAILY #60 tabs 07/14/23 prednisone 10 mg tablet 10 mg PO DAILY #30 tabs 07/14/23 sucralfate 1 gram tablet 1 g PO 0700,1100,1600 #90 tabs 07/14/23 Hospital Course Operations None Procedures EGD and - (Chest x-ray/CT of the chest) Summary of Care Provided Minutes Spent on Discharge: 42 Hospital Course: Mr. Gomez is a 67-year-old male who presented to the emergency department at [facility] on 07/09/2023 due to shortness of breath. The patient has a history of gastric carcinoma status post gastrectomy and throat cancer that was treated with cryotherapy who started having shortness of breath about 2 days prior to presentation. In addition to his shortness of breath, he experienced some cough and subjective fever and chills. He was seen in June by his primary care physician and was treated with Augmentin for pneumonia. Due to his worsening symptoms, he came the emergency department for further evaluation. On presentation, he had a temperature of 99.2, heart rate 119, respiratory was 22, blood pressure was 90/60 and oxygen saturation was 92% on 2 L nasal cannula. He was admitted for sepsis secondary to pneumonia due to lactic acidosis, new hypoxia, relative hypotension and was treated with antibiotics and aggressive fluid resuscitation after cultures were obtained. Blood cultures were negative. COVID-19/flu/RSV was unremarkable and strep pneumo and Legionella antigens were negative. Pulmonary medicine was consulted and recommended narrowing his antibiotics, continuing to wean steroids and encourage bronchodilator therapy as well as incentive spirometry and mobilization. He was transitioned to Augmentin which she will complete for another 4 days at the time of discharge. Speech therapy was also consulted as there was concern for aspiration. Speech therapy did recommend a regular thin diet with some modifications and ongoing outpatient speech therapy if the patient was agreeable. I did write a prescription for outpatient speech therapy at the time of discharge. He was also noted to be anemic and his iron studies were not consistent with iron deficiency and more consistent with chronic disease however his guaiac was positive. GI was consulted after he was placed on IV Protonix twice daily. At that time we also held his Plavix and Xarelto. EGD showed a tortuous esophagus with abnormal esophageal motility consistent with achalasia, a moderate Schatzki's ring which was dilated, grade B erosive esophagitis with bleeding and this was biopsied, medium size hiatal hernia, and Zeeshan-en-Y gastrojejunostomy with a gastrojejunal anastomosis characterized by edema, erosion, erythema and friable mucosa. After his scope he was placed on a full liquid diet and tolerated that without any difficulty. GI recommended ongoing Protonix use 40 mg p.o. twice daily for 12 weeks and Carafate 1 pill 3 times daily that is either liquid or crushed. He will need repeat EGD by gastroenterology and his esophageal dysphagia was felt to be likely related to his esophageal dysmotility and outpatient manometry with possible Botox injections was recommended. His hemoglobin was stable and we were able to advance his diet to regular diet on 07/14/2023. We felt him stable for discharge. Initially the goal was to hold his anticoagulation and Plavix for 14 days however the patient states he clots very quickly and had to be admitted up to [facility] after even 4 days of holding his anticoagulation. I discussed the case with Dr. Portillo and since he has had clotting so quickly we will restart his Xarelto tomorrow and his Plavix on Wednesday. We did assess an ambulatory pulse ox prior to discharge and he was stable on room air at rest and with ambulation. Outpatient follow-up recommended [facility]. Sandra with a follow-up CT scan in 6 to 8 weeks after completion of antibiotics. We also have set him up for an appointment to see Dr. Portillo in follow-up for the above. I have advised him to follow-up with his primary care physician within the next week or 2. He will need a follow-up CBC within the next 5 to 7 days due to his abnormalities on EGD and the inability to hold his anticoagulation as long as we would like. He was discharged home in stable condition with all prescriptions sent to the local pharmacy to include Protonix, Carafate, prednisone, amlodipine, and Augmentin. Discharge diagnoses: Sepsis-resolved Aspiration pneumonia-resolving Acute hypoxia-resolved Acute on chronic anemia Upper GI bleeding History of PUD History of DVT Leukocytosis-resolved Hypokalemia-resolved Hypophosphatemia-resolved Hypomagnesemia-resolved Infrarenal AAA PAD COPD Hyperlipidemia History of gastric cancer History of throat cancer Physical Exam Const alert, oriented x3, no apparent distress and healthy appearing Constitutional Narrative: Upper middle-aged, chronically ill, older than stated age, white male, sitting up in bed, watching television currently appears comfortable General Appearance: cooperative, comfortable, well kempt and well developed Orientation / Consciousness: awake, oriented to person, oriented to place and oriented to time Exam Limitations: no limitations Nutritional Appearance: thin HEENT normocephalic, head/scalp atraumatic and moist oral mucous membranes HEENT Narrative: Mallampati 1-2, no thrush Eyes PERRL and EOMs intact bilaterally Eyes Narrative: Conjunctiva are pale bilaterally, no scleral icterus Neck no lymphadenopathy and supple Neck Narrative: Trachea midline, no thyroid enlargement Resp normal respiratory effort, no retractions, no use of accessory muscles and clear to auscultation bilaterally Resp Narrative: Diffusely diminished but clear Auscultation: Negative for rales, rhonchi or wheezes Cardio regular rate, regular rhythm, S1 normal heart sound, S2 normal heart sound, no murmurs, no rub, no gallops and no clicks GI normal to inspection, nondistended, normoactive bowel sounds, soft to palpation and non-tender Extremity no clubbing, cyanosis or edema Extremity Narrative: Pedal pulses are 2+ Skin no wounds, skin turgor normal and no jaundice Skin Narrative: Scattered upper extremity ecchymosis Neuro oriented x3, CN's II-XII intact bilaterally, moves all extremities and no focal motor deficits Speech: speech normal Psych affect normal Psych Narrative: Pleasant, interacts appropriately Weight / BMI Weight Weight: 57.7 kg Body Mass Index (BMI) 19.3 ABG / Lab / Microbiology Data 07/14/23 12:30 07/14/23 06:50 Laboratory: Laboratory Results - last 24 hr 07/14/23 06:50: WBC 5.3, RBC 2.90 L, Hgb 9.9 L, Hct 30.0 L, MCV 103.4 H, MCH 34.1 H, MCHC 33.0, RDW Std Deviation 63.6 H, RDW Coeff of Mariella 16.7 H, Plt Count 217, MPV 10.7, Sodium 137, Potassium 3.5, Chloride 104, Carbon Dioxide 26.0, Anion Gap 7, BUN 11, Creatinine 0.86, Estim Creat Clear Calc 66.16, Est GFR (MDRD) Af Amer 114, Est GFR (MDRD) Non-Af 94, BUN/Creatinine Ratio 12.9, Glucose 101, Calcium 8.2 L 07/14/23 12:30: Hgb 10.2 L Microbiology: Microbiology 07/09/23 08:25 Blood Culture (Wb) - Right Hand Blood Culture - Final No growth in 5 days. 07/09/23 08:18 Blood Culture (Wb) - Venous Blood Culture - Final No growth in 5 days. 07/12/23 09:07 Stool Stool Occult Blood (ROMAN) - Final Occult Blood Positive 07/09/23 08:49 Urine, Clean Catch Urine Culture - Final Culture exhibits no growth. 07/09/23 11:55 Mucosa - Nasopharyngeal Coronavirus COVID-19 PCR - Final 07/09/23 11:55 Mucosa - Nasopharyngeal Respiratory Panel (PCR) - Final 07/09/23 12:00 Mucosa - Throat Streptococcus pyogenes (PCR) - Final 07/09/23 08:49 Urine, Clean Catch Legionella Antigen - Final 07/09/23 08:49 Urine, Clean Catch Streptococcus pneumoniae Antigen (M - Final 07/09/23 08:34 Mucosa - Nasopharyngeal SARS-CoV-2, Influenza & RSV (PCR) - Final D/C Instructions Discharge Diet: Low fat / Low cholesterol Discharge Activity: Return to Normal Activity Meaningful Use Info Meaningful Use Diagnoses (Choose all that apply): None applicable Discharge Plan Admission Admit Date/Time: 07/09/23 10:44 Primary Reason for Your Visit: Shortness of breath Attending Provider: Katharina Black Primary Care Provider: Lamonte Michael Consulting Providers: Valeriano Yanes Instructions Additional Instructions / Restrictions: 1. Please call your pulmonary doctor at [facility] to be seen within the next 2 to 4 weeks 2. Please call your primary care physician and ask for a CBC to be ordered and drawn within the next 5-7 days 3. Avoid all NSAIDs (aspirin, ibuprofen, naproxen) 4. Restart your Xarelto on 07/15/2023 and restart your Plavix on 07/17/2023 Discharge Orders/Prescriptions Prescriptions: New amoxicillin-pot clavulanate 875-125 mg Tablet 1 tab PO BID 4 Days Qty: 8 0RF sucralfate 1 gram Tablet 1 g PO 0700,1100,1600 Qty: 90 0RF pantoprazole [Protonix] 40 mg tablet,delayed release (DR/EC) 40 mg PO DAILY Qty: 60 1RF amlodipine 10 mg tablet 10 mg PO DAILY Qty: 30 1RF prednisone 10 mg tablet 10 mg PO DAILY Qty: 30 0RF Rx Instructions: 4 tablets x 3 days, 3 tablets x 3 days, 2 tablets x 3 days, 1 tablet x 3 days and then stop Continued acetaminophen [Tylenol] 325 MG tablet 650 mg PO Q6H PRN PRN (Reason: Non-cardiac pain (mod-severe)) 0RF atorvastatin 40 mg tablet 40 mg PO DAILY Patient Comments: TAKE 1 TABLET BY MOUTH EVERY DAY cyanocobalamin (vitamin B-12) 1 tab PO DAILY ferrous sulfate 325 MG tablet 325 mg PO BIDCM Qty: 1 0RF Vitamin D3 Complete 18 mg iron-800 mcg-150 mg tablet 1 tab PO DAILY Held Xarelto 20 MG tablet 20 mg PO DAILY Hold Instructions: Restart tomorrow 07/15/2023 Patient Comments: blood thinner clopidogrel 75 mg tablet 75 mg PO DAILY Hold Instructions: Restart on 07/17/2023 Patient Comments: TAKE 1 TABLET BY MOUTH EVERY DAY Referrals / Follow Up: Salome Sandra MD [Non-Staff] - See Referral Note (Please call and set up appointment to be seen within the next 2 to 4 weeks) Nick Portillo DO [Med Staff - Active Staff] - 08/06/23 10:00 am Donya Macdonald NP, DICK-C [Non-Staff] - 07/20/23 11:30 am Disposition Disposition (needs filled in before D/C Order can be placed): Home, Self Care Charges/Coding Visit Charges Inpatient E&M: 47381 Disch Hosp >30min
--- NOTE | 2023-07-14 14:39 | CASEMGMT ---
RN CM: Per Robyn, ST, OP ST is not recommended and she states she does not feel it is warranted/needed. Dr Black made aware and states that is okay. No script for OP ST will be provided to pt. RN CM to room. Introduced self and role. Pt resting in bed. Pt and made aware that OP ST is not recommended and pt states is glad to hear this. Pt and voice no other discharge planning needs/concerns. Eldon PINEDO RN CM
== END 2023-07-14 15:41 | disposition home or self-care (01) | DRG 871 ==
LOC: ED 08:54 → PCU 10:57
PROVIDERS: Internal Medicine Gastroenterology; Admitting Provider Internal Medicine; Emergency Provider Student in an Organized Health Care Education/Training Program; PCP Student in an Organized Health Care Education/Training Program; Visit Provider Internal Medicine
PROC: 0DJ08ZZ Inspection of Upper Intestinal Tract, Via Natural or Artificial Opening Endoscopic (ICD-10-PCS; CPT 43235; principal; 2023-07-13 14:25)
DX: A41.9 Sepsis, unspecified organism (principal); J69.0 Pneumonitis due to inhalation of food and vomit; K20.81 Other esophagitis with bleeding; E87.20 Acidosis, unspecified; J44.0 Chronic obstructive pulmonary disease with (acute) lower respiratory infection; D63.8 Anemia in other chronic diseases classified elsewhere; E83.39 Other disorders of phosphorus metabolism; I73.9 Peripheral vascular disease, unspecified; I71.43 Infrarenal abdominal aortic aneurysm, without rupture; E78.5 Hyperlipidemia, unspecified; E87.6 Hypokalemia; F17.210 Nicotine dependence, cigarettes, uncomplicated; K44.9 Diaphragmatic hernia without obstruction or gangrene; K22.0 Achalasia of cardia; E83.42 Hypomagnesemia; K22.2 Esophageal obstruction; Z79.01 Long term (current) use of anticoagulants; R91.1 Solitary pulmonary nodule; Z79.02 Long term (current) use of antithrombotics/antiplatelets; Z90.3 Acquired absence of stomach [part of]; Z66 Do not resuscitate; R13.10 Dysphagia, unspecified; Z86.718 Personal history of other venous thrombosis and embolism; Z79.899 Other long term (current) drug therapy; Z85.028 Personal history of other malignant neoplasm of stomach; Z85.89 Personal history of malignant neoplasm of other organs and systems
CPT/HCPCS: 36415; 71045; 71260; 80048; 80053; 80202; 81001; 82274; 82607; 82728; 83540; 83550; 83605; 83735; 84100; 84484; 85018; 85025; 85027; 85045; 85610; 85730; 87040; 87086; 87449; 87631; 87633; 87635; 87641; 87651; 88305; 88312; 88313; 92526; 92610; 93005; 94640; 94668; 94762; 97802; 99285; 99406; J7030; J7040; J7050; J7120; Q9967; A4216; C1769; J2405

== ENCOUNTER 2023-12-29 10:53 | Emergency (ER) | payer MEDICARE, BC, SELFPAY ==
[2023-12-29 10:54] VITALS: BP 111/84; PULSE 114; RESP 16; TEMP 36.7; O2SAT 100
[2023-12-29 10:55] VITALS: BMI 17.9
--- NOTE | 2023-12-29 11:08 | EX.ED.DYSGE1 ---
HPI History of Present Illness Chief Complaint: Weakness [facility] Medical History (Updated 12/29/23 @ 15:[address] Damir Waters, DO) Lung cancer Aspiration pneumonia History of gastrectomy Sepsis Community acquired pneumonia PVD (peripheral vascular disease) Stomach cancer Throat cancer GI bleed Home Medications ?Medication ?Instructions ?Recorded ?Last Taken ?Type rivaroxaban 20 mg tablet (Xarelto) 20 mg PO DAILY blood thinner 05/04/17 07/08/23 History acetaminophen 325 mg tablet 650 mg (2 x 325 mg) PO Q6H PRN PRN 08/12/18 11/18/18 Rx (Tylenol) Non-cardiac pain (mod-severe) atorvastatin 40 mg tablet 40 mg PO DAILY cholesterol 01/04/23 07/08/23 History clopidogrel 75 mg tablet 75 mg PO DAILY anti platelet 01/04/23 07/08/23 History cyanocobalamin (vitamin B-12) 1 tab PO DAILY supplement 03/31/23 07/08/23 History multivit with 1 tab PO DAILY vitamin 07/09/23 Unknown History [id number] 18 mg iron-800 mcg-150 mg tablet (Vitamin D3 Complete) amlodipine 10 mg tablet 10 mg PO DAILY #30 tabs 07/14/23 Unknown Rx sucralfate 1 gram tablet 1 g PO 0700,1100,1600 #90 tabs 07/14/23 Unknown Rx ondansetron HCl 24 mg tablet 24 mg PO Q8H 11/02/23 Unknown History pantoprazole 40 mg tablet,delayed 40 mg PO DAILY #60 tabs 11/02/23 Unknown Rx release (Protonix) ondansetron 4 mg disintegrating 4 mg PO Q8H PRN PRN Nausea #10 tabs 12/29/23 Unknown Rx tablet Allergy/AdvReac Type Severity Reaction Status Date / Time lisinopril AdvReac PASSED Verified 12/29/23 10:55 OUT Surgical History History of cholecystectomy Social History (Updated 03/31/23 @ 10:27 by Carmen Dean) household members: spouse Smoking Status: Current every day smoker tobacco type: cigarettes EXAM Physical Exam Const Vital Signs: 12/29/23 10:54 12/29/23 11:04 12/29/23 12:53 Temperature 98.1 F Temperature Source Temporal Pulse Rate 114 H 84 Respiratory Rate 16 17 Respiratory Effort Normal Non-Labored Respiratory Pattern Normal Blood Pressure 111/84 H 161/88 H Blood Pressure Mean 93 112 Pulse Ox 100 94 Oxygen Delivery Method Room Air Room Air 12/29/23 14:00 Temperature Temperature Source Pulse Rate 87 Respiratory Rate 19 H Respiratory Effort Respiratory Pattern Blood Pressure 159/99 H Blood Pressure Mean 119 Pulse Ox Oxygen Delivery Method [facility] Narrative Medical decision making narrative: HISTORY OF PRESENT ILLNESS: 68-year-old male history of gastric cancer, gastrectomy, status post Zeeshan-en-Y gastric bypass, peripheral vascular disease, AAA presents concern for dehydration. Notes he is undergoing radiation and chemo. States this was last done 6 weeks ago. Notes is not eating and drinking. Notes he was sent in with concern for dehydration. Notes he is been taking decreased p.o. secondary to abdominal discomfort, nausea and dry heaves. Denies vomiting. Denies melena or hematochezia. Denies urinary complaints. Does note a cough that is nonproductive. Denies chest pain. Denies palpitations. Denies fever or headache. Denies difficulty swallowing. Denies focal numbness weakness or loss of sensation. Notes diffuse weakness. REVIEW OF SYSTEMS: Pertinent positives: Decreased p.o. intake, dehydration, abdominal discomfort Pertinent negatives: Chest pain, shortness of breath, cough, fever, urinary complaint, focal weakness or numbness or loss of sensation PHYSICAL EXAM: Nursing triage notes reviewed, Vital signs reviewed Constitutional: please see mdm HENT: MMM Eyes: Pupils equal round and reactive to light, Extraocular muscles intact Neck: No stridor, no JVD, full neck ROM Lungs: Clear to auscultation, No wheezing or rales. No increased work of breathing, no conversational dyspnea, no accessory muscle use, no nasal flaring. No respiratory distress noted Heart: Regular rate and rhythm, No murmurs, No rubs and No gallops, 2+ distal pulses (radial, femoral, posterior tibial) in all extremities Abdomen: Soft, there is no tenderness, rigidity, rebound or guarding, no obvious peritoneal signs, + palpable pulsatile abdominal mass noted consistent with known AAA. : No CVAT Extremities: No edema Neuro: No focal neurological deficits, cranial nerves II through XII intact, 5/5 strength in all extremities. Intact sensation to light touch in all extremities, 2+ reflexes bilateral patella tendons. Normal gait. No ataxia. Skin: No rash or lesions noted MEDICAL DECISION MAKING: Chief Complaint: Dehydration External records reviewed: Reviewed prior inpatient admission from July 2023 reports patient was treated for recurrent pneumonia. Factors affecting care: Gastric carcinoma status post gastrectomy, throat cancer peripheral artery disease, alcohol abuse, anemia, peptic ulcer disease, GERD, hypertension, COPD with Social determinants of health: none History obtained from others: Family Consults: Possibly oncology (Dr. Phoenix) will await CT scan to make this final determination. Vascular surgery to discuss increase in size the patient's AAA. MDM Narrative: Patient was initially tachycardic with a rate of 114 otherwise afebrile and nontoxic-appearing. Exam with a thin chronically ill-appearing male in no acute distress. He had moist mucous membranes. Abdomen was benign and displayed no signs of perforation obstruction or peritoneal signs. I considered the following differential diagnosis: Dehydration, electrolyte disturbance, arrhythmia, anemia, pneumonia intra-abdominal pathology, ACS, pneumonia, COVID, flu, RSV I obtained a broad lab and imaging workup to further elucidate etiology of patient complaint. I treat the patient initially 1 L normal saline and 4 mg IV Zofran. ALL IMAGES (IF OBTAINED) HAVE BEEN PERSONALLY REVIEWED AND INTERPRETED BY MYSELF. EKG with normal sinus rhythm, normal axis, normal intervals, no STEMI CBC with pancytopenia consistent with current chemotherapy BMP with signs of renal insufficiency with a creatinine 1.36 with a baseline creatinine of 0.9 Lactate is wnl indicating no end-organ hypoperfusion and/or hypoxia. Lipase is wnl indicating no pancreatic inflammation. LFTs show no evidence of hepatobiliary pathology high-sensitivity troponin is negative, no evidence of myocardial ischemia. I have personally reviewed the patient's chest x-ray. Chest x-ray is unremarkable for pulmonary edema, pneumothorax, pneumonia or focal cardiopulmonary abnormality. CT scan of the abdomen pelvis with oral and IV contrast is consistent with increased size of the patient's abdominal aortic aneurysm to 6.3 cm up from 5.3 cm in August On reassessment patient's initial tachycardia resolved with a rate of 84. Discussed the case with our vascular surgery ZULMA Fitch who recommended transfer given large increase in size and no other explanation for the patient abdominal discomfort. I reached out to his vascular surgeon at [facility] Dr. Oconnell (vascular surgery). Dr. Herring's partner took the call Dr. Hyatt (vascular surgery) who noted the patient's prior CT in their records had an aneurysm of 5.9 cm. He felt the increase to 6.3 cm today was not significant. He stated the patient did not have significant pain discomfort or pulsatile mass then he could be discharged close follow-up. Of the patient's abdomen. He is tender over a pulsatile area in his mid abdomen concerning for tenderness over the aneurysm. I recommend he be transferred to be evaluated with vascular surgery as soon as possible. Patient who is alert and orient x 3 and displayed capacity to make his own medical decisions chose to forego transfer at this time stating I do not feel ready to go up there at this time. AMA note: I have recommended admission to the hospital, but the patient refuses. The risks (including but not limited to suffering and ) as well as the benefits were explained to the patient. Questions were sought and answered, the patient voiced understanding and accepts these risks. I have encouraged the patient to return to have their evaluation completed as we are glad to do so. Patient had capacity to make his or her own medical decisions. Patient was alert and orient x3 and of sound mind at time of discussion. I have also instructed the patient on the importance of follow-up and to return for any worsening or worrisome concerns. The patient appears competent to make medical decisions at this time. AMA form signed and placed on the patient's chart. The patient and/or family, caregivers express understanding. The patient and/or family, caregivers agrees with the plan. Shared decision making: I will have a discussion with the patient and or visitors regarding risk/benefits of further testing or admission. They will be made aware of of the risk/benefits inherent in this decision they will be given the opportunity to voice understanding. Total critical care time today provided was at least 0 minutes. This excludes separately billable procedures. Critical care time (if documented) is secondary to the patient having high probability of clinically significant/life threatening deterioration in the patient's condition which required my urgent intervention. Impression: 1. Dehydration 2. Pancytopenia 3. AAA Dispo: discharge AMA This note was generated with [employer]ial[employer] dictation software. It may contain incorrect words, spelling, and punctuation that were not noted in review of the chart prior to signing. Lab Data Labs: Laboratory Results - last 24 hr 12/29/23 12/29/23 11:30 14:37 WBC 2.9 L RBC 2.96 L Hgb 9.9 L Hct 31.4 L MCV 106.1 H MCH 33.4 H MCHC 31.5 L RDW Std Deviation 70.1 H RDW Coeff of Mariella 18.2 H Plt Count 146 L MPV 11.4 Immature Gran % (Auto) 0.300 Neut % (Auto) 54.6 Lymph % (Auto) 17.3 L Griggs % (Auto) 26.5 H Eos % (Auto) 1.0 Baso % (Auto) 0.3 Absolute Neuts (auto) 1.6 L Absolute Lymphs (auto) 0.51 L Nucleated RBC % 0 Differential Comment SCANNED Sodium 136 Potassium 4.9 Chloride 106 Carbon Dioxide 25.0 Anion Gap 5 BUN 19 H Creatinine 1.36 H Estim Creat Clear Calc 38.10 Est GFR (MDRD) Af Amer 67 Est GFR (MDRD) Non-Af 55 L BUN/Creatinine Ratio 14.0 Glucose 97 Lactic Acid 2.0 Calcium 9.3 Total Bilirubin 0.40 AST 16 ALT 10 L Alkaline Phosphatase 110 Troponin I High Sens 18 Total Protein 6.9 Albumin 2.6 L Globulin 4.3 H Albumin/Globulin Ratio 0.6 L Lipase 32 Urine Color Yellow Urine Clarity Clear Urine pH 7.0 Ur Specific [place] 1.010 Urine Protein 15 H Urine Glucose (UA) Normal Urine Ketones Negative Urine Occult Blood 25 H Urine Nitrite Negative Urine Bilirubin Negative Urine Urobilinogen Normal Ur Leukocyte Esterase Negative Urine RBC 0-5 SEEN Urine WBC 0 SEEN Ur Squamous Epith Cells 0-5 SEEN Urine Bacteria 1+ Urine Mucus RARE Radiography Diagnostic Testing: Clinical Impression(s) from Imaging Studies Abdomen/Pelvis CT 12/29/23 11:30 IMPRESSION: Increased size of the infrarenal abdominal aortic aneurysm as compared to prior study with mural thrombus. It presently measures 6.3 cm in transverse dimension. Electronically Signed: Prem Beckman MD at 14:08 EDT , Chest X-Ray 12/29/23 11:50 IMPRESSION: Hyperinflation and COPD. Bibasilar scarring. Electronically Signed: Prem Beckman MD at 12:15 EDT , Discharge Plan Triage Chief Complaint: Weakness ED Provider: Damir Waters Dx/Rx/DC Orders Clinical Impression: AAA (abdominal aortic aneurysm) without rupture Instructions: ED Weakness (Uncertain Cause) Prescriptions: New ondansetron 4 mg tablet,disintegrating 4 mg PO Q8H PRN PRN (Reason: Nausea) Qty: 10 0RF No Action ondansetron HCl 24 mg tablet 24 mg PO Q8H pantoprazole [Protonix] 40 mg tablet,delayed release (DR/EC) 40 mg PO DAILY Qty: 60 1RF Xarelto 20 MG tablet 20 mg PO DAILY Patient Comments: blood thinner acetaminophen [Tylenol] 325 MG tablet 650 mg PO Q6H PRN PRN (Reason: Non-cardiac pain (mod-severe)) 0RF atorvastatin 40 mg tablet 40 mg PO DAILY Patient Comments: TAKE 1 TABLET BY MOUTH EVERY DAY clopidogrel 75 mg tablet 75 mg PO DAILY Patient Comments: TAKE 1 TABLET BY MOUTH EVERY DAY cyanocobalamin (vitamin B-12) 1 tab PO DAILY Vitamin D3 Complete 18 mg iron-800 mcg-150 mg tablet 1 tab PO DAILY sucralfate 1 gram Tablet 1 g PO 0700,1100,1600 Qty: 90 0RF amlodipine 10 mg tablet 10 mg PO DAILY Qty: 30 1RF Primary Care Provider: Lamonte Michael Activity Restrictions/Additional Instructions: Thank you for trusting us with your care today! Please take Tylenol (2 pills, 650 mg), every 6 hours as needed for pain and fever control. Please take Zofran as needed for nausea control. If you develop worsening pain, loss of consciousness, please return to the ED immediately. Please return to the emergency department if your symptoms change or worsen. Please follow with your Barbi Hawthorne or Dr. Hyatt for further outpatient evaluation and management. Dr. Hyatt office office number [phone] please call today. Print Language: Citizen Of [place] Disposition Disposition: Home, Self Care
--- NOTE | 2023-12-29 11:29 | EKG12_ITS ---
Test Reason : WEAKNESS Blood Pressure : / mmHG Vent. Rate : 087 BPM Atrial Rate : 087 BPM P-R Int : 194 ms QRS Dur : 078 ms QT Int : 366 ms P-R-T Axes : 083 074 076 degrees QTc Int : 440 ms Normal sinus rhythm Normal ECG Confirmed by Ezra Perry ([id number]), newspaper copy editor TYRESE DEJESUS ([id number]) on 12/30/2023 2:05:24 PM Referred By: DARREL Confirmed By:Ezra Perry
--- NOTE | 2023-12-29 11:30 | CT_ITS ---
STUDY: CT ABDOMEN AND PELVIS WITH CONTRAST REASON FOR EXAM: Male, 68 years old. Abdominal pain, nausea and vomiting -- IV PO Contrast RADIATION DOSAGE (If Supplied By Facility): CTDIvol = ( 8.23 ) mGy, DLP = ( 298.34 ) mGycm TECHNIQUE: Transaxial images were obtained from the dome of the diaphragm to the symphysis pubis with oral contrast. Oral and amp; IV Readi-CAT and amp; 100mL Isovue-300 was administered. Sagittal and coronal images were reconstructed. Individualized dose optimization techniques were used for this CT. COMPARISON: Comparison is made with prior study dated January 04, 2023. FINDINGS: Hyperinflation. Emphysematous changes. Mild degree of increased markings in the posterior medial segment of the right lower lobe suggestive of possible early infiltrate. 1 cm nodular density in the peripheral posterior aspect of the lingular segment of the left upper lobe suggestive of scarring. Coronary artery calcification. Normal liver. The patient is status post cholecystectomy. Normal spleen. Normal pancreas. Normal bilateral adrenal glands. Stable 4.4 cm cyst in the right kidney. Normal left kidney. Moderate-sized hiatal hernia. The patient is status post subtotal gastrectomy. Normal small intestine. There are multiple colonic diverticula consistent with diverticulosis. The appendix is visualized and appears normal. There is diffuse atherosclerotic calcification of the abdominal aorta. Once again, there is evidence of a fusiform infrarenal abdominal aortic aneurysm with a transverse dimension of 6.3 cm. Mural thrombus is seen. This has increased in size as compared to prior study. Normal inferior vena cava. Normal retroperitoneum. Normal urinary bladder. Normal abdominal wall. There are degenerative changes of the visualized lumbar spine. Grade 1 retrolisthesis of L5 over S1. CT/Abdomen/Pelvis WITH Contrast IMPRESSION: Increased size of the infrarenal abdominal aortic aneurysm as compared to prior study with mural thrombus. It presently measures 6.3 cm in transverse dimension. Electronically Signed: Prem Beckman MD at 14:08 EDT ,
[2023-12-29] MEDS: 0.9% Normal Saline (1000mL) 1,000 ML 1000 ML IV (11:44)
[2023-12-29] MEDS: Ondansetron 4 MG/2 ML Vial IV (11:44)
[2023-12-29] MEDS: 0.9% Normal Saline (1000mL) 1,000 ML 999 ML IV (11:44)
--- NOTE | 2023-12-29 11:50 | RAD_ITS ---
STUDY: X-RAY CHEST REASON FOR EXAM: Male, 68 years old. Cough TECHNIQUE: Single AP portable view of the chest. COMPARISON: Comparison is made with prior study July 09, 2023. FINDINGS: There is hyperinflation of the lungs consistent with chronic obstructive lung disease (COPD). Mild scarring along the lateral aspect of the right lower lobe. There is no demonstrated pleural abnormality. Normal size heart. Normal mediastinum and mercedes. Normal visualized pulmonary arteries. Normal visualized aortic arch and descending thoracic aorta. Normal visualized thoracic spine. Normal visualized ribs, clavicles, and shoulders. Hiatal hernia. RAD/Chest 1 View (Portable) IMPRESSION: Hyperinflation and COPD. Bibasilar scarring. Electronically Signed: Prem Beckman MD at 12:15 EDT ,
[2023-12-29 12:00] LABS: Absolute Lymphocyte Count 0.51 X10^3/uL (0.83-4.51); Absolute Neutrophil Count 1.6 X10^3/uL (2.0-7.7); Basophil# 0.01 X10^3/uL; Basophil% 0.3 % (0-1); Eosinophil# 0.03 X10^3/uL; Hematocrit 31.4 % (40-54); Hemoglobin 9.9 g/dL (13.0-16.5); Lymphocyte # 0.51 X10^3/ul (0.83-4.51); Lymphocyte % 17.3 % (19-41); Mean Corp Hgb Conc 31.5 g/dL (32-36); Mean Corpuscular Hgb 33.4 pg (27.0-32.0); Mean Corpuscular Volume 106.1 fL (80-94); Mean Platelet Vol. 11.4 fl (6.2-12.0); Monocyte# 0.78 X10^3/uL; Monocyte% 26.5 % (0-10); NRBC Flagged by Analyzer 0 % (0-5); Neutrophil % 54.6 % (47-70); POSITIVE DIFFERENTIAL YES; POSITIVE MORPHOLOGY YES; Platelet Count 146 K/mm3 (150-450); RBC Distribution Width CV 18.2 % (11.6-14.6); RBC Distribution Width SD 70.1 fl (35.1-43.9); Red Blood Count 2.96 M/mm3 (4.6-6.2); White Blood Count 2.9 K/mm3 (4.4-11.0)
[2023-12-29 12:03] LABS: Differential Indicated SCAN CRITERIA MET
[2023-12-29 12:21] LABS: Differential Comment SCANNED
[2023-12-29 12:29] LABS: ALB/GLOB Ratio 0.6 RATIO (0.9-2.4); AST(SGOT) 16 U/L (15-37); Alanine Aminotransfer ALT/SGPT 10 U/L (16-61); Albumin, Serum 2.6 g/dL (3.2-5.0); Alkaline Phosphatase 110 U/L (45-117); Anion Gap 5 (5-15); BUN 19 mg/dL (7-18); Calcium,Total 9.3 mg/dL (8.5-10.1); Chloride 106 mmol/L (98-107); Creatinine, Serum 1.36 mg/dL (0.70-1.30); EST Glomerular Filtration Rate 55 mL/min (>60); Est Glom Filt Rate - Afr Amer 67 mL/min (>60); Globulin 4.3 g/dL (2.2-4.2); Glucose 97 mg/dL (74-106); Lipase 32 U/L (13-75); Potassium 4.9 mmol/L (3.5-5.1); Protein, Total 6.9 g/dL (6.4-8.2); Sodium Level 136 mmol/L (136-145); Troponin-I HS 18 pg/mL (3.0-78.0)
[2023-12-29 12:53] VITALS: BP 161/88; PULSE 84; RESP 17; O2SAT 94
[2023-12-29 14:00] VITALS: BP 159/99; PULSE 87; RESP 19
[2023-12-29 14:41] LABS: White Blood Cells 0 SEEN /hpf (0-5)
[2023-12-29 14:44] LABS: Color, Urine Yellow (Yellow); Glucose, Dipstick Normal (Normal); Ketone-Dipstick Negative (Negative); Leukocyte Esterase-Dipstick Negative /ul (Negative); Nitrite-Dipstick Negative (Negative); Occult Blood-Urine 25 /ul (Negative); Protein-Dipstick 15 mg/dl (Negative); Urine Bilirubin Dipstick Negative (Negative); Urine Clarity Clear (Clear); Urine Urobilinogen Normal (Normal)
[2023-12-29 15:00] LABS: Bacteria 1+ /hpf (None Seen); Red Blood Cells-Urine 0-5 SEEN /hpf (0-5); Squamous Epithelial Cells - UA 0-5 SEEN /hpf (0-5)
[2023-12-29 15:01] LABS: Mucous, Urine RARE /hpf (<or=2+)
[2023-12-29 15:52] LABS: Reflex Lactate? Y
[2023-12-29 16:03] VITALS: BP 153/86; PULSE 81; RESP 19; TEMP 36.7; O2SAT 97
[2023-12-30 14:34] LABS: Pathologist Review Reviewed
== END 2023-12-29 16:04 | disposition home or self-care (01) ==
PROVIDERS: Emergency Provider Emergency Medicine; PCP Student in an Organized Health Care Education/Training Program; Visit Provider Emergency Medicine
DX: E86.0 Dehydration (principal); D61.818 Other pancytopenia; C16.9 Malignant neoplasm of stomach, unspecified; C14.0 Malignant neoplasm of pharynx, unspecified; J44.9 Chronic obstructive pulmonary disease, unspecified; K21.9 Gastro-esophageal reflux disease without esophagitis; I73.9 Peripheral vascular disease, unspecified; I10 Essential (primary) hypertension; N28.9 Disorder of kidney and ureter, unspecified; I71.43 Infrarenal abdominal aortic aneurysm, without rupture; Z11.52 Encounter for screening for COVID-19; F17.210 Nicotine dependence, cigarettes, uncomplicated; Z79.01 Long term (current) use of anticoagulants; Z79.02 Long term (current) use of antithrombotics/antiplatelets; Z79.899 Other long term (current) drug therapy; Z87.11 Personal history of peptic ulcer disease; Z90.3 Acquired absence of stomach [part of]; Z98.84 Bariatric surgery status
CPT/HCPCS: 71045; 74177; 80053; 81001; 83605; 83690; 84484; 85025; 87631; 93005; 96361; 96374; 99284; J7030; Q9967; A4216; J2405

== ENCOUNTER 2024-01-14 12:02 | Day surgery (SDC) | payer MEDICARE, BC, SELFPAY ==
[2024-01-14] VITALS (8 sets, daily range): BP systolic 69–131; BP diastolic 58–93; PULSE 60–90; RESP 16–18; TEMP 36.1–36.6; O2SAT 97–100; BMI 15.5
--- NOTE | 2024-01-14 12:26 | PCM.PRE.AN2 ---
ASA Classification* ASA Classification ASA Classification: 3 Assessment & Plan Anesthesia* Anesthesia Assessment Anesthesia Assessment: Discussed sedation and/or anesthesia options, risks, benefits, and alternatives with patient/parents/legal guardian/POA. Questions invited. The patient/parents/legal guardian/POA seems to understand and agrees to proceed with anesthesia plan. Reviewed the physical assessment, medical history, allergy history and patient home medications list prior to surgery/procedure/anesthetic and documented any changes. Performed airway and anesthesia risk assessments. Anesthesia Type Anesthesia Type: MAC Anesthesia Focused Assessment* Airway Assessment Mouth opens: >3 cm Mallampati Score: II Focused Labs Anesthesia Preop lab: CBC WBC 2.9 K/mm3 (4.4-11.0) L 12/29/23 11:30 RBC 2.96 M/mm3 (4.6-6.2) L 12/29/23 11:30 Hgb 9.9 g/dL (13.0-16.5) L 12/29/23 11:30 Hct 31.4 % (40-54) L 12/29/23 11:30 Plt Count 146 K/mm3 (150-450) L 12/29/23 11:30 CHEMISTRY Potassium 4.9 mmol/L (3.5-5.1) 12/29/23 11:30 Sodium 136 mmol/L (136-145) 12/29/23 11:30 Magnesium 1.8 mg/dL (1.6-2.6) 07/11/23 04:15 Phosphorus 2.0 mg/dL (2.5-4.9) L 07/10/23 05:15 BUN 19 mg/dL (7-18) H 12/29/23 11:30 Creatinine 1.36 mg/dL (0.70-1.30) H 12/29/23 11:30 Glucose 97 mg/dL (74-106) 12/29/23 11:30 COAG PT 13.5 SECONDS (11.7-14.9) 07/09/23 08:18 Pre-Assessment Diagnosis/Proposed Procedure Planned Operative Procedure(s): EGD Anesthesia History Anesthesia History - collection systems administrator: Anesthesia History - collection systems administrator Hx Hospitalization Yes: [facility], UNS[facility] 01/13/24 10:41 Any Problems With Anesthesia No 01/13/24 10:41 Cholinesterase deficiency No 01/13/24 10:41 You/Your Family Experience No 01/13/24 10:41 fever (hyperthermia) with Relationship Recent Exposure to Contagious Disease Does patient have nerve No 01/13/24 10:41 stimulator Patient instructed to have device shut off --Does patient have Pacemaker or ICD? When Was Last Pacemaker Check QUESTION #4 FULL TEXT: You/Your Family Experience fever (hyperthermia) with Anesthesia Last Oral Intake Last Oral intake: Last Oral Intake NPO since Meds taken in AM with sips of water? Meds patient instructed to take am of surgery PONV PONV - collection systems administrator: PONV - collection systems administrator Female No 01/13/24 10:41 HX of Motion Sickness No 01/13/24 10:41 HX of N/V After Surgery No 01/13/24 10:41 Non-Smoker No 01/13/24 10:41 Duration of Surgery greater No 01/13/24 10:41 than 60 minutes Number of Risk Factors PONV Score Height & Weight Height & Weight: Anesthesia: Height & Weight Height 5 ft 8 in 12/29/23 10:54 Respiratory Assessment Respiratory Assessment - collection systems administrator: Respiratory Tract Infection Hx - collection systems administrator Hx Respiratory Tract Infection No 01/13/24 10:41 STOP Sleep Apnea STOP Sleep Apnea - collection systems administrator: STOP Sleep Apnea - collection systems administrator Hx Hypertension Yes: CONTROLLED WITH MEDS 01/13/24 10:41 Hx Sleep Apnea No 01/13/24 10:41 CPAP BIPAP Do you snore loudly (louder No 01/13/24 10:41 than talking or can be heard Do you often feel tired/ No 01/13/24 10:41 fatigued/ sleepy during daytime? Has anyone observed you stop No 01/13/24 10:41 breathing during sleep? STOP Results Negative 01/13/24 10:41 QUESTION #5 FULL TEXT : Do you snore loudly (louder than talking or can be heard through closed doors)? 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 Specify any problems Hx of Preganancy in last 3 N/A 01/13/24 10:41 Months Nurse Filling Out Transfusion [id number] 01/13/24 10:41 & Questions: Date: 01/13/24 01/13/24 10:41 Time: 10:44 01/13/24 10:41 Patient unable to answer at this time (ie. confused, unrespo /Reproduction History /Reproductive History - collection systems administrator: /Reproductive Hx- collection systems administrator Hx Now Gestational Age (in weeks): EDC: Hx Hx Para Hx Section SAB Active Medications Active Medications: Current Medications Generic Name Dose Route Start Last Admin Trade Name Freq PRN Reason Stop Dose Admin Lactated Ringer's 1,000 mls @ 15 mls/hr 01/14/24 12:30 IV .Q48H JOHN PFSH Medical History (Updated 01/13/24 @ 10:49 by Chucho Ram) Wears dentures Wears glasses Walker as ambulation aid Anemia Gastric reflux Smoker Chronic cough Leg cramps History of pain when walking History of stress test Lung cancer Aspiration pneumonia History of gastrectomy Sepsis Community acquired pneumonia PVD (peripheral vascular disease) Stomach cancer Throat cancer GI bleed Home Medications ?Medication ?Instructions ?Recorded ?Last Taken ?Type rivaroxaban 20 mg tablet (Xarelto) 20 mg PO DAILY blood thinner 05/04/17 01/09/24 History acetaminophen 325 mg tablet 650 mg (2 x 325 mg) PO Q6H PRN PRN 08/12/18 11/18/18 Rx (Tylenol) Non-cardiac pain (mod-severe) atorvastatin 40 mg tablet 40 mg PO DAILY cholesterol 01/04/23 07/08/23 History clopidogrel 75 mg tablet 75 mg PO DAILY anti platelet 01/04/23 07/08/23 History cyanocobalamin (vitamin B-12) 1 tab PO DAILY supplement 03/31/23 07/08/23 History multivit with 1 tab PO DAILY vitamin 07/09/23 Unknown History [id number]-#[id number] 18 mg iron-800 mcg-150 mg tablet (Vitamin D3 Complete) amlodipine 10 mg tablet 10 mg PO DAILY #30 tabs 07/14/23 Unknown Rx pantoprazole 40 mg tablet,delayed 40 mg PO DAILY #60 tabs 11/02/23 Unknown Rx release (Protonix) ondansetron 4 mg disintegrating 4 mg PO Q8H PRN PRN Nausea #10 tabs 12/29/23 Unknown Rx tablet sucralfate 1 gram tablet 1 g PO TID 01/13/24 Unknown History Allergy/AdvReac Type Severity Reaction Status Date / Time lisinopril AdvReac PASSED Verified 01/13/24 10:39 OUT Surgical History History of cholecystectomy Social History (Updated 03/31/23 @ 10:27 by Carmen Dean) household members: spouse Smoking Status: Current every day smoker tobacco type: cigarettes Review of Systems (Anesthesia) ROS Narrative System reviewed and no additional complaints, except as documented.
[2024-01-14] MEDS: Lactated Ringers 1,000 ML 15 ML IV (12:51)
--- NOTE | 2024-01-14 13:30 | EGD_PTH ---
PATIENT: ALFREDA RAMIREZ Jr. LOC: EN U#:[id number] AGE/SX: 68/M ROOM: RE01/14/[address]: Dr. Nick Portillo DO : 1955 BED: DIS: 01/14/2024 SPEC #: [id number] RECD: 01/14/24 15:30 STATUS: MAGY REAvani #: [id number] BRENT: 01/14/24 13:[address]: Nick Portillo DEPT: SURGICAL PATHOLOGY RECD BY: Mendoza Meehan ENTERED: 01/17/24 06:49 SP TYPE: EGD BIOPSY KIRILL DR: Dr. Lamonte Michael DO Tissues: Esophagus, NOS Procedures: Special Stain Group I Surgery Specimen Level IV GMS Stain (control) Alcian Blue/PAS (control) HEADER OPERATION: EGD and biopsy and dilation PRE-OP DIAGNOSIS: Blood loss anemia TISSUE SUBMITTED: Distal esophagus biopsy MICROSCOPIC DIAGNOSIS Distal esophagus, biopsy: Gastroesophageal junctional mucosa with mild chronic inflammation. Focal mucosal ulceration with associated acute and chronic inflammation. No evidence of goblet cell metaplasia. No evidence of fungal organisms. See comment. Ifeanyi 01/18/2024 COMMENT Alcian blue/PAS stain with matched control is used in the evaluation of the specimen. GMS stain with matched control was used in the evaluation of this case. MICROSCOPIC DESCRIPTION Slides are reviewed. GROSS DESCRIPTION Received in fixative is one container labeled with the patient's name and designated Distal esophagus biopsy. The specimen consists of multiple irregular fragments of light mulligan soft tissue that in aggregate measure 2.0 x 0.5 x 0.1 cm. The specimen is totally submitted in one cassette. 01/17/2024 TC:2 CPT:30359,50538,20204
--- NOTE | 2024-01-14 13:43 | HP.PCM_ITS ---
History and Physical Date of Admission: 01/14/24 ALFREDA RAMIREZ, is a 68 M who presents to the office today for follow up. [facility]GI established 4.5.24 following [facility] hospitalization 07.09.23- 07.14.23. Presented with SOB. Hx of gastric carcinoma s/p gastrectomy and throat cancer. GI consulted for anemia and positive fecal occult. EGD showed a tortuous esophagus with abnormal esophageal motility consistent with achalasia, a moderate Schatzki's ring which was dilated, grade B erosive esophagitis with bleeding and this was biopsied, medium size hiatal hernia, and Zeeshan-en-Y gastrojejunostomy with a gastrojejunal anastomosis characterized by edema, erosion, erythema and friable mucosa. Dx aspiration pneumonia, upper GI bleed, esophageal dysm otility. OV 4.5.24 Pt states he is doing much better since hosp. visit. Says swallowing is much better since he had the EGD. Continues PPI and Sucralfate. Some SOB. BM normal. OV 7.2.24 pt reports daily nausea with occasional vomiting since starting chemo and radiation 4 weeks ago. Pt is taking Zofran which he reports has been helpful. Pt's daughter expresses concern for pt's nutrition. Continues with pantoprazole and sucralfate. ROS Const Constitutional: Positive for fatigue, weakness and weight change (weight loss); No fever(s) ENT ENT: No difficulty swallowing Cardio Cardiology: Positive for leg pain with exertion Gastro GI: Positive for abdominal pain, heartburn, nausea/dyspepsia and vomiting; No belching, bloating, change in bowel habits, change in stool character, coffee ground emesis, constipation, cramping, diarrhea, difficulty swallowing, feeling full early, excessive flatus, incontinent of stools, Vomiting blood/hematemesis, Blood in stool, loose stools, Black,tarry stools, pain with swallowing or other Musc Musculoskeletal: Positive for abnormal gait, joint pain, muscle weakness, numbness, tingling, Arthritis and leg pain with exertion Skin Skin: No yellowing of the eye or itchy eyes Neuro Neurology: Positive for abnormal gait, weakness, numbness and tingling Psych Psychiatric: No anxiety and No depression Endo Endocrine: Positive for fatigue and weight change (weight loss) Aller/Imm Allergy/Immunologic: No itchy eyes Bolivar/Lymp Hematologic/Lymphatic: Positive for easy bleeding and easy bruising Exam Const General: cooperative and comfortable Nutritional Appearance: average body habitus and well nourished HENMT Head: normal to inspection Ears: hearing grossly normal bilaterally Nose: external nose normal Face and sinus: normal facial exam Mouth: oral mucosae normal Throat: posterior oropharynx normal Eyes General: appearance normal, both eyes and all related structures Neck Neck: normal visual inspection Chest Chest palpation & inspection: normal inspection of the chest and normal palpation of entire chest wall Resp Effort & Inspection: normal respiratory effort Auscultation: Bilateral: Clear to Auscultation Cardio Palpation: normal PMI Rate: regular rate Rhythm: regular rhythm GI Inspection: normal to inspection Auscultation: normal bowel sounds Percussion: normal to percussion Palpation: no hepatosplenomegaly Skin General: no rashes or lesions noted Neuro General: patient alert Extrem General: normal to inspection Psych Affect: normal affect Assessment and Plan Assessment and Plan (1) Alcohol abuse: Status: Chronic (2) Hypocalcemia: Status: Acute (3) Acute blood loss anemia: Status: Inactive Plan: 67-year-old male who presented to the emergency department at [facility] on 07/09/2023 due to shortness of breath. The patient has a history of gastric carcinoma status post gastrectomy and throat cancer that was treated with cryotherapy who started having shortness of breath about 2 days prior to presentation. In addition to his shortness of breath, he experienced some cough and subjective fever and chills. He was seen in June by his primary care physician and was treated with Augmentin for pneumonia. Due to his worsening symptoms, he came the emergency department for further evaluation. On presentation, he had a temperature of 99.2, heart rate 119, respiratory was 22, blood pressure was 90/60 and oxygen saturation was 92% on 2 L nasal cannula. He was admitted for sepsis secondary to pneumonia due to lactic acidosis, new hypoxia, relative hypotension and was treated with antibiotics and aggressive fluid resuscitation after cultures were obtained. Blood cultures were negative. COVID-19/flu/RSV was unremarkable and strep pneumo and Legionella antigens were negative. Pulmonary medicine was consulted and recommended narrowing his antibiotics, continuing to wean steroids and encourage bronchodilator therapy as well as incentive spirometry and mobilization. He was transitioned to Augmentin which she will complete for another 4 days at the time of discharge. Speech therapy was also consulted as there was concern for aspiration. Speech therapy did recommend a regular thin diet with some modifications and ongoing outpatient speech therapy if the patient was agreeable. I was consulted after he was placed on IV Protonix twice daily. At that time we also held his Plavix and Xarelto. EGD showed a tortuous esophagus with abnormal esophageal motility consistent with achalasia, a moderate Schatzki's ring which was dilated, grade B erosive esophagitis with bleeding and this was biopsied, medium size hiatal hernia, and Zeeshan-en-Y gastrojejunostomy with a gastrojejunal anastomosis characterized by edema, erosion, erythema and friable mucosa. After his scope he was placed on a full liquid diet and tolerated that without any difficulty. I recommended ongoing Protonix use 40 mg p.o. twice daily for 12 weeks and Carafate 1 pill 3 times daily that is either liquid or crushed. He will need repeat EGD by gastroenterology and his esophageal dysphagia was felt to be likely related to his esophageal dysmotility and outpatient manometry with possible Botox injections was recommended. His hemoglobin was stable and we were able to advance his diet to regular diet on 07/14/2023. We felt him stable for discharge. Initially the goal was to hold his anticoagulation and Plavix for 14 days however the patient states he clots very quickly and had to be admitted up to [facility] after even 4 days of holding his anticoagulation. We did assess an ambulatory pulse ox prior to discharge and he was stable on room air at rest and with ambulation. Outpatient follow-up recommended at [facility]- Dr. Sandra with a follow-up CT scan in 6 to 8 weeks after completion of antibiotics. I have advised him to follow-up with his primary care physician within the next week or 2. He will need a follow-up CBC within the next 5 to 7 days due to his abnormalities on EGD and the inability to hold his anticoagulation as long as we would like. He was discharged home in stable condition with all prescriptions sent to the local pharmacy to include Protonix, Carafate, prednisone, amlodipine, and Augmentin. He comes in for follow-up visit today with his daughter and his . He has been undergoing radiation treatment and chemotherapy. His nausea is controlled with Zofran. His esophageal dysphagia is a lot better. He is not have any solid food or liquid food dysphagia. His weight has decreased about 8 pounds but is holding steady. Currently he is consuming around 500 to 800 josé luis a day as per patient. I told him that he should introduce weak underweight protein in the form of a milkshake on a daily basis as that should be able to give him 1200 josé luis a day. We discussed possibly repeating his upper endoscopy to verify that it is normal signs of bleeding in his upper GI tract but he wanted to hold off on that while he is undergoing radiation and chemotherapy treatment. I was okay with that. He is feeling a little better since getting Neupogen for his decreased white blood cell count. His hemoglobin has been holding steady with chemotherapy. His platelet count is down just a little bit but is also holding steady. Overall he is doing a lot better. He will follow-up in the clinic after he finishes chemotherapy or radiation. Medications: Refilled pantoprazole (Protonix) 40 mg PO DAILY 60 tabs 1RF Discontinued ferrous sulfate Discontinued Reason: Pt no longer taking 325 mg PO BIDCM 1 TAB 0RF iron supplement amoxicillin-pot clavulanate 875-125 mg Discontinued Reason: Order Completed 1 TAB PO BID 4 days 8 tabs 0RF prednisone 4 tablets x 3 days, 3 tablets x 3 days, 2 tablets x 3 days, 1 tablet x 3 days and then stop Discontinued Reason: Order Completed 10 mg PO DAILY 30 tabs 0RF I have examined the patient and the H&P has been reviewed. There are no clinical changes since date of exam.
--- NOTE | 2024-01-14 14:02 | OP.EGD_ITS ---
Patient Name: Enoc Gomez Procedure Date: 01/14/2024 1:37 PM Date of : 1955 Age: 68 Procedure: Upper GI endoscopy Indications: Iron deficiency anemia, Dysphagia, Chronic cough, Weight loss Providers: Nick Portillo DO Medicines: Monitored Anesthesia Care Patient Profile: This is a 68 year old male. Refer to note in patient chart for documentation of history and physical. Patient has symptoms of chronic dysphagia and dysphagia with solids. Complications: No immediate complications. Procedure: Pre-Anesthesia Assessment: - Prior to the procedure, a History and Physical was performed, and patient medications and allergies were reviewed. The patient is competent. The risks and benefits of the procedure and the sedation options and risks were discussed with the patient. All questions were answered and informed consent was obtained. Patient identification and proposed procedure were verified by the physician in the pre-procedure area. Mental Status Examination: alert and oriented. Airway Examination: normal oropharyngeal airway and neck mobility. Respiratory Examination: clear to auscultation. CV Examination: normal. Prophylactic Antibiotics: The patient does not require prophylactic antibiotics. Prior Anticoagulants: The patient has taken no anticoagulant or antiplatelet agents except for NSAID medication. ASA Grade Assessment: II - A patient with mild systemic disease. After reviewing the risks and benefits, the patient was deemed in satisfactory condition to undergo the procedure. The anesthesia plan was to use monitored anesthesia care (MAC). Immediately prior to administration of medications, the patient was re-assessed for adequacy to receive sedatives. The heart rate, respiratory rate, oxygen saturations, blood pressure, adequacy of pulmonary ventilation, and response to care were monitored throughout the procedure. The physical status of the patient was re-assessed after the procedure. After obtaining informed consent, the endoscope was passed under direct vision. Throughout the procedure, the patient's blood pressure, pulse, and oxygen saturations were monitored continuously. The Endoscope was introduced through the mouth, and advanced to the second part of duodenum. The upper GI endoscopy was accomplished without difficulty. The patient tolerated the procedure well. Scope In: 1:47:23 PM Scope Out: 1:53:34 PM Total Procedure Duration Time 0 hours 6 minutes 11 seconds Findings: LA Grade B (one or more mucosal breaks greater than 5 mm, not extending between the tops of two mucosal folds) esophagitis with no bleeding was found 39 to 41 cm from the incisors. Biopsies were taken with a cold forceps for histology. Verification of patient identification for the specimen was done. Estimated blood loss was minimal. A high-grade of narrowing Schatzki ring was found at the gastroesophageal junction. A guidewire was placed and the scope was withdrawn. Dilation was performed with a Savary dilator with no resistance at 54 Fr. The dilation site was examined and showed moderate improvement in luminal narrowing. Estimated blood loss was minimal. Evidence of a Zeeshan-en-Y gastrojejunostomy was found. The gastrojejunal anastomosis was characterized by healthy appearing mucosa. This was traversed. The edllk-xw-efinnai limb was characterized by healthy appearing mucosa. The jejunojejunal anastomosis was characterized by healthy appearing mucosa. The zmgvgiod-zu-tjoqaih limb was not examined as it could not be found. The excluded stomach was not examined as it could not be found. The examined jejunum was normal. Impression: - LA Grade B erosive esophagitis with no bleeding. Biopsied. - High-grade of narrowing Schatzki ring. Dilated. - Zeeshan-en-Y gastrojejunostomy with gastrojejunal anastomosis characterized by healthy appearing mucosa. - Normal examined jejunum. Recommendation: - Discharge patient to home. - Resume previous diet. - Continue present medications. - Await pathology results. Procedure Code(s): --- Professional --- 79290, Esophagogastroduodenoscopy, flexible, transoral; with insertion of guide wire followed by passage of dilator(s) through esophagus over guide wire 55802, 59,51, Esophagogastroduodenoscopy, flexible, transoral; with biopsy, single or multiple CPT copyright 2021 [employer]. All rights reserved. The codes documented in this report are preliminary and upon computer language coder review may be revised to meet current compliance requirements. Nick Portillo DO 01/14/2024 2:01:26 PM This report has been signed electronically. Number of Addenda: 0 Note Initiated On: 01/14/2024 1:37 PM
--- NOTE | 2024-01-14 14:02 | OP.CCLET_ITS ---
01/14/2024 Lamonte Michael [address] [place] [address] Re : Upper GI endoscopy procedure for Enoc Gomez Dear Dr. Michael This procedure was performed on Sunday, January 14, 2024. My impressions and recommendations are as follows: Impressions : - LA Grade B erosive esophagitis with no bleeding. Biopsied. - High-grade of narrowing Schatzki ring. Dilated. - Zeeshan-en-Y gastrojejunostomy with gastrojejunal anastomosis characterized by healthy appearing mucosa. - Normal examined jejunum. Recommendations : - Discharge patient to home. - Resume previous diet. - Continue present medications. - Await pathology results. My findings are described in the full procedure note, which is enclosed. If I can be of further assistance, please feel free to contact me at . Sincerely, Nick Portillo, 01/14/2024 2:01:26 PM This report has been signed electronically.
--- NOTE | 2024-01-14 14:07 | PCM.POST.ANE ---
Anesthesia: Postop Eval I Current Vital Signs Temperature: 97.9 F Pulse Rate: 82 Blood Pressure: 69/58 Respiratory Rate: 16 Pulse Ox: 100 Oxygen Delivery Method: Room Air Assessment Airway patent: Yes Spontaneous unlabored respirations: Yes Mental status: Asleep nausea: No Vomiting: No Anesthesia Complication: No Fluid Hydration Crystalloid volume administer (ml): 800 Total IV fluid infused: 800 Progress Note Anesthesia document: Postop Eval 1 completed: Yes
--- NOTE | 2024-01-14 15:33 | PCM.POSTANE2 ---
Anesthesia Postop Eval I Sum Postop Eval Completion status Anesthesia document: Postop Eval 1 completed: Yes Anesthesia Postop Eval I Summary Anesthesia Postop Eval I Summary: Anesthesia Postop Eval I: Assessment Summary Airway patent Yes 01/14/24 14:08 [email or web address] Spontaneous unlabored Yes 01/14/24 14:08 [email or web address] respirations Mental status Asleep 01/14/24 14:08 [email or web address] nausea No 01/14/24 14:08 [email or web address] Vomiting No 01/14/24 14:08 [email or web address] Anesthesia Postop Eval I: Fluid Summary Crystalloid volume administer 800 01/14/24 14:08 [email or web address] (ml) Colloids volume administered ( ml) Blood Product volume administered (ml) Total IV fluid infused 800 01/14/24 14:08 [email or web address] Anesthesia Postop Eval I: Summary Notes Anesthesia Complication No 01/14/24 14:08 [email or web address] Anesthesia Complication Comment: Post-operative progress note Anesthesia: Postop Eval II Evaluation Mental status: Awake Pain Level: 1 nausea: No Vomiting: No
== END 2024-01-14 14:58 | disposition home or self-care (01) ==
LOC: EN 12:08 → AC 12:09
PROVIDERS: PCP Student in an Organized Health Care Education/Training Program; Referring Provider Student in an Organized Health Care Education/Training Program; Visit Provider Internal Medicine Gastroenterology
PROC: 0DJ08ZZ Inspection of Upper Intestinal Tract, Via Natural or Artificial Opening Endoscopic (ICD-10-PCS; CPT 43235; principal; 2024-01-14 13:25)
DX: K22.2 Esophageal obstruction (principal); D62 Acute posthemorrhagic anemia; E83.51 Hypocalcemia; F10.10 Alcohol abuse, uncomplicated; D50.9 Iron deficiency anemia, unspecified; Z85.00 Personal history of malignant neoplasm of unspecified digestive organ; Z85.819 Personal history of malignant neoplasm of unspecified site of lip, oral cavity, and pharynx; Z90.3 Acquired absence of stomach [part of]; Z79.899 Other long term (current) drug therapy; Z79.02 Long term (current) use of antithrombotics/antiplatelets; Z79.01 Long term (current) use of anticoagulants; K20.0 Eosinophilic esophagitis; Z98.0 Intestinal bypass and anastomosis status; Z98.84 Bariatric surgery status; F17.200 Nicotine dependence, unspecified, uncomplicated
CPT/HCPCS: 43248; 43239; 88305; 88312; J7120; C1769; J2405

== ENCOUNTER 2024-03-06 12:01 | Inpatient (IN) | payer MEDICARE, BC, SELFPAY ==
[2024-03-06] VITALS (14 sets, daily range): BP systolic 77–123; BP diastolic 50–87; PULSE 92–110; RESP 16–25; TEMP 36.3–36.6; O2SAT 84–99; BMI 16.9; BMI 15.7
[2024-03-06] MEDS: MethylPREDNISolone 125 MG/2 ML Vial 60 MG IV (12:38)
[2024-03-06] MEDS: Ipratropium/Albuterol Sulfate 3 ML AMPUL.NEB INHALATION ×2 (12:38→19:34)
[2024-03-06] MEDS: 0.9% Normal Saline (1000mL) 1,000 ML 999 ML IV ×2 (12:38→13:54)
[2024-03-06 12:42] LABS: Absolute Lymphocyte Count 0.71 X10^3/uL (0.83-4.51); Absolute Neutrophil Count 3.4 X10^3/uL (2.0-7.7); Basophil# 0.05 X10^3/uL; Eosinophil# 0.02 X10^3/uL; Eosinophils% 0.4 % (0-5); Hematocrit 36.7 % (40-54); Hemoglobin 11.7 g/dL (13.0-16.5); Lymphocyte # 0.71 X10^3/ul (0.83-4.51); Lymphocyte % 14.7 % (19-41); Mean Corp Hgb Conc 31.9 g/dL (32-36); Mean Corpuscular Hgb 32.6 pg (27.0-32.0); Mean Corpuscular Volume 102.2 fL (80-94); Mean Platelet Vol. 10.8 fl (6.2-12.0); Monocyte# 0.62 X10^3/uL; Monocyte% 12.8 % (0-10); NRBC Flagged by Analyzer 0 % (0-5); Neutrophil % 70.3 % (47-70); Platelet Count 219 K/mm3 (150-450); RBC Distribution Width CV 14.9 % (11.6-14.6); RBC Distribution Width SD 56.5 fl (35.1-43.9); Red Blood Count 3.59 M/mm3 (4.6-6.2); White Blood Count 4.8 K/mm3 (4.4-11.0)
[2024-03-06 12:54] LABS: D-Dimer Quantitative (DVT/PE) 2.67 FEU/ug/m (0.27-0.49)
[2024-03-06 13:00] LABS: Troponin-I HS 40 pg/mL (3.0-78.0)
[2024-03-06 13:06] LABS: BNP,B-Type NATRIURETIC PEPTIDE 74.1 pg/mL (0-100)
[2024-03-06 13:09] LABS: Lactic Acid 2.4 mmol/L (0.4-1.9)
[2024-03-06 13:27] LABS: Anion Gap 8 (5-15); BUN 13 mg/dL (7-18); BUN/Creat Ratio 9.8 RATIO (10-20); Calcium,Total 8.6 mg/dL (8.5-10.1); Chloride 107 mmol/L (98-107); Creatinine, Serum 1.33 mg/dL (0.70-1.30); EST Glomerular Filtration Rate 56 mL/min (>60); Est Glom Filt Rate - Afr Amer 68 mL/min (>60); Estimated Creatinine Clearance 37.21 ml/min; Glucose 199 mg/dL (74-106); Potassium 4.6 mmol/L (3.5-5.1); Sodium Level 136 mmol/L (136-145)
[2024-03-06] MEDS: levoFLOXacin IV 750 MG/150 ML BAG 100 MG IV (13:54)
[2024-03-06 16:34] LABS: Reflex Lactate? Y
[2024-03-06] MEDS: Sucralfate 1 GM Tablet PO (17:03)
[2024-03-06 17:25] LABS: Lactic Acid 1.9 mmol/L (0.4-1.9)
[2024-03-06] MEDS: guaiFENesin 1,200 MG Tablet 1200 MG PO (21:01)
[2024-03-06] MEDS: OLANZapine 5 MG/TAB TAB.RAPDIS PO (21:01)
[2024-03-07] VITALS (19 sets, daily range): BP systolic 83–117; BP diastolic 50–80; PULSE 56–92; RESP 16–20; TEMP 36.1–36.9; O2SAT 90–98; BMI 15.7; BMI 16.9
[2024-03-07] MEDS: Ipratropium/Albuterol Sulfate 3 ML AMPUL.NEB INHALATION ×4 (01:26→19:35)
[2024-03-07] MEDS: 0.9% Saline Lock 10 ML Syringe IV ×2 (05:15→22:09)
[2024-03-07 06:13] LABS: Absolute Lymphocyte Count 0.43 X10^3/uL (0.83-4.51); Absolute Neutrophil Count 4.1 X10^3/uL (2.0-7.7); Hematocrit 30.8 % (40-54); Hemoglobin 9.7 g/dL (13.0-16.5); Lymphocyte # 0.43 X10^3/ul (0.83-4.51); Lymphocyte % 9.1 % (19-41); Mean Corp Hgb Conc 31.5 g/dL (32-36); Mean Corpuscular Hgb 32.3 pg (27.0-32.0); Mean Corpuscular Volume 102.7 fL (80-94); Mean Platelet Vol. 10.6 fl (6.2-12.0); Monocyte% 4.2 % (0-10); NRBC Flagged by Analyzer 0 % (0-5); Neutrophil # 4.05 X10^3/uL (2.7-7.7); Neutrophil % 85.4 % (47-70); POSITIVE DIFFERENTIAL YES; Platelet Count 203 K/mm3 (150-450); RBC Distribution Width CV 15.1 % (11.6-14.6); RBC Distribution Width SD 56.3 fl (35.1-43.9); White Blood Count 4.7 K/mm3 (4.4-11.0)
[2024-03-07 06:51] LABS: ALB/GLOB Ratio 0.5 RATIO (0.9-2.4); AST(SGOT) 18 U/L (15-37); Alanine Aminotransfer ALT/SGPT 8 U/L (16-61); Albumin, Serum 1.9 g/dL (3.2-5.0); Alkaline Phosphatase 90 U/L (45-117); Anion Gap 6 (5-15); BUN 17 mg/dL (7-18); BUN/Creat Ratio 17.3 RATIO (10-20); Calcium,Total 8.1 mg/dL (8.5-10.1); Chloride 109 mmol/L (98-107); Creatinine, Serum 0.98 mg/dL (0.70-1.30); EST Glomerular Filtration Rate 80 mL/min (>60); Est Glom Filt Rate - Afr Amer 97 mL/min (>60); Globulin 3.9 g/dL (2.2-4.2); Glucose 122 mg/dL (74-106); Magnesium 1.8 mg/dL (1.6-2.6); Potassium 4.7 mmol/L (3.5-5.1); Protein, Total 5.8 g/dL (6.4-8.2); Sodium Level 137 mmol/L (136-145)
[2024-03-07 07:07] LABS: International Normalized Ratio 1.5
[2024-03-07 07:19] LABS: Partial Thromboplast Time 36.3 Seconds (24.1-36.2)
[2024-03-07] MEDS: levoFLOXacin IV 750 MG/150 ML BAG 100 MG IV (11:42)
[2024-03-07] MEDS: guaiFENesin 1,200 MG Tablet 1200 MG PO (22:09)
[2024-03-07] MEDS: OLANZapine 5 MG/TAB TAB.RAPDIS PO (22:09)
[2024-03-08] VITALS (7 sets, daily range): BP systolic 126–133; BP diastolic 70–93; PULSE 79–96; RESP 16–20; TEMP 36.3–36.6; O2SAT 92–99; BMI 17.1
[2024-03-08] MEDS: Ipratropium/Albuterol Sulfate 3 ML AMPUL.NEB INHALATION ×2 (00:45→06:49)
[2024-03-08 05:26] LABS: Absolute Lymphocyte Count 0.32 X10^3/uL (0.83-4.51); Absolute Neutrophil Count 8.7 X10^3/uL (2.0-7.7); Basophil# 0.01 X10^3/uL; Basophil% 0.1 % (0-1); Hematocrit 29.5 % (40-54); Hemoglobin 9.5 g/dL (13.0-16.5); Lymphocyte # 0.32 X10^3/ul (0.83-4.51); Lymphocyte % 3.3 % (19-41); Mean Corp Hgb Conc 32.2 g/dL (32-36); Mean Corpuscular Hgb 32.8 pg (27.0-32.0); Mean Corpuscular Volume 101.7 fL (80-94); Mean Platelet Vol. 10.9 fl (6.2-12.0); Monocyte# 0.43 X10^3/uL; Monocyte% 4.5 % (0-10); NRBC Flagged by Analyzer 0 % (0-5); Neutrophil # 8.74 X10^3/uL (2.7-7.7); POSITIVE DIFFERENTIAL YES; Platelet Count 199 K/mm3 (150-450); RBC Distribution Width CV 14.8 % (11.6-14.6); RBC Distribution Width SD 54.8 fl (35.1-43.9); White Blood Count 9.6 K/mm3 (4.4-11.0)
[2024-03-08] MEDS: 0.9% Saline Lock 10 ML Syringe IV (05:38)
[2024-03-08] MEDS: Sucralfate 1 GM Tablet PO ×3 (05:38→15:53)
[2024-03-08 06:10] LABS: Anion Gap 5 (5-15); BUN 22 mg/dL (7-18); BUN/Creat Ratio 24.7 RATIO (10-20); Calcium,Total 8.6 mg/dL (8.5-10.1); Chloride 109 mmol/L (98-107); Creatinine, Serum 0.89 mg/dL (0.70-1.30); EST Glomerular Filtration Rate 90 mL/min (>60); Est Glom Filt Rate - Afr Amer 109 mL/min (>60); Estimated Creatinine Clearance 55.71 ml/min; Glucose 110 mg/dL (74-106); Phosphorus 3.9 mg/dL (2.5-4.9); Potassium 4.3 mmol/L (3.5-5.1); Sodium Level 137 mmol/L (136-145)
[2024-03-08] MEDS: Thiamine Hydrochloride 100 MG Tablet PO (08:07)
[2024-03-08] MEDS: Folic Acid 1 MG Tablet PO (08:07)
[2024-03-08] MEDS: guaiFENesin 1,200 MG Tablet 1200 MG PO (10:31)
[2024-03-08] MEDS: Pantoprazole Sodium 40 MG Tablet PO (10:31)
[2024-03-08] MEDS: Atorvastatin Calcium 40 MG Tablet PO (10:31)
[2024-03-08] MEDS: Psyllium 1 PACKET PO (10:36)
[2024-03-08] MEDS: levoFLOXacin IV 750 MG/150 ML BAG 100 MG IV (10:39)
== END 2024-03-08 19:20 | disposition short-term general hospital (02) | DRG 177 ==
LOC: ED 14:18 → PCU 14:46
PROVIDERS: Internal Medicine Gastroenterology; Admitting Provider Internal Medicine; Emergency Provider Emergency Medicine; PCP Student in an Organized Health Care Education/Training Program; Referring Provider Emergency Medicine; Visit Provider Internal Medicine
PROC: 0DJ08ZZ Inspection of Upper Intestinal Tract, Via Natural or Artificial Opening Endoscopic (ICD-10-PCS; CPT 43235; principal; 2024-03-07 16:40)
DX: J69.0 Pneumonitis due to inhalation of food and vomit (principal); E43 Unspecified severe protein-calorie malnutrition; I31.39 Other pericardial effusion (noninflammatory); C79.89 Secondary malignant neoplasm of other specified sites; N17.9 Acute kidney failure, unspecified; K22.10 Ulcer of esophagus without bleeding; C34.90 Malignant neoplasm of unspecified part of unspecified bronchus or lung; J44.1 Chronic obstructive pulmonary disease with (acute) exacerbation; Z68.1 Body mass index [BMI] 19.9 or less, adult; K22.2 Esophageal obstruction; E86.0 Dehydration; N18.31 Chronic kidney disease, stage 3a; I73.9 Peripheral vascular disease, unspecified; K28.9 Gastrojejunal ulcer, unspecified as acute or chronic, without hemorrhage or perforation; I95.9 Hypotension, unspecified; K21.00 Gastro-esophageal reflux disease with esophagitis, without bleeding; F10.90 Alcohol use, unspecified, uncomplicated; E78.5 Hyperlipidemia, unspecified; F17.210 Nicotine dependence, cigarettes, uncomplicated; R09.02 Hypoxemia; Z11.52 Encounter for screening for COVID-19; R79.89 Other specified abnormal findings of blood chemistry; Z79.01 Long term (current) use of anticoagulants; Z79.02 Long term (current) use of antithrombotics/antiplatelets; Z79.899 Other long term (current) drug therapy; Z86.718 Personal history of other venous thrombosis and embolism; Z86.79 Personal history of other diseases of the circulatory system; Z92.21 Personal history of antineoplastic chemotherapy; Z90.3 Acquired absence of stomach [part of]; Z92.3 Personal history of irradiation
CPT/HCPCS: 36415; 71045; 71275; 74174; 80048; 80053; 83605; 83735; 83880; 84100; 84443; 84484; 85025; 85379; 85610; 85730; 86850; 86900; 86901; 87040; 87070; 87205; 87449; 87631; 87633; 88305; 92610; 93005; 93306; 93308; 94640; 94668; 97116; 97162; 97166; 99285; Q9967; A4216